=== PATIENT | male | born 1960 | race Caucasian/White ===

== ENCOUNTER → 2016-08-07 | Outpatient (CLI) | payer OTHER ==
--- NOTE | 2016-08-07 12:27 | P.PN ---
Progress Note - Text Patient returns for followup for chronic axial back pain. In 2014, patient underwent bilateral MBB with 1-2 days' relief >50% but RFA was not performed. Patient continues on MSContin 60 mg po q8h and [place] 10q6 medications for pain with OK but incomplete relief, and states that he is having severe pain preventing him from playing catch with his son or doing any outdoor activities. Patient denies adverse drug effects from medications. Today, pt denies new- onset weakness, bowel/bladder incontinence, or any other signs or symptoms of cauda equina syndrome. Patient states that his son has glaucoma and his sister has cancer and he is in a depressed mood today but denies any suicidal/ homicidal ideation. Review of systems is negative for chest pain, shortness of breath, changes in vision, changes in hearing, new onset weakness, abdominal pain, diarrhea, extreme fatigue, malaise, fever, skin changes, or bowel or bladder incontinence. Gen: WDWN, AAOx3, NAD HEENT: NCAT, EOMI, hearing grossly normal Pulm: resp unlabored Abd: soft, NT, ND Neck: supple, trachea midline ROM in flexion lumbar spine: reduced ROM in extension lumbar spine: reduced Lumbar paravertebral tenderness: + Facet loading: ++ bilateral SI joint tenderness: mild bilateral Straight leg raise: neg bilaterally Neuro: CN II-XII grossly intact Imaging: Reviewed in EMR Assessment: 1. lumbar spondylosis without myelopathy 2. lumbar DDD 3. chronic pain syndrome Plan: 1. Explanation: Opioid and psychological risk scores were reviewed. Diagnoses , prognoses, and multiple treatment options including but not limited to physical therapy, interventional therapies, adjuvant medical therapies, narcotic medication therapies, and surgery were discussed with the patient and all questions were answered to the patient's satisfaction. 2. Opioid agreement: Patient has previously signed narcotic agreement, and was orally counseled to not overuse, abuse, divert, or cell medications, and to take them as prescribed by only 1 healthcare provider. The patient was also counseled to store opioid medications in a safe and preferably locked location. Patient was also counseled against driving while using narcotic medications and also to not use alcohol or any illicit or recreational drugs. The patient verbalized understanding that lack of compliance with any of the above and likely result in failure to renew narcotic prescriptions, possible discharge from the clinic, and possible legal ramifications thereafter if indicated. 3. Counseling: The patient was counseled extensively on SMOKING CESSATION, BODY MASS INDEX, EXERCISE. Specifically, the patient was instructed regarding the importance of smoking cessation, obesity, and exercise in the context of both chronic pain and overall health. 4. Procedures: Patient to read about MBB/RFA; will discuss at next visit 5. Consultations: None 6. Investigations: UDS appropriate from last visit 7. Medications: MSContin 60 mg #90 + [place] 10/325 #120 x 2 months 8. Disposition: f/u for re-eval 2 months; patient having personal issues and wishes to wait on procedures for now PQRS measures: 1-Patient's medications are documented in the chart. 2-Tobacco use is positive, counseling given 3-Patient has not had a pneumococcal vaccine. 4-Advanced care planning discussed, patient not eligible. 5-Opioid contract signed with the patient. 6-Pain positive, follow-up visit or procedure scheduled 7-patient blood pressure measured and documented, and patient will follow up with the primary care due to hypertension. 8-Patient's weight was measured, and body mass index within the normal limits.. 9-Patient WAS NOT identified as an unhealthy alcohol user.
== END | disposition home or self-care (01) ==
CPT/HCPCS: 99211

== ENCOUNTER → 2016-10-28 | Outpatient (CLI) | payer OTHER ==
[2016-10-28 11:48] VITALS: BP 135/71; PULSE 74; RESP 16
--- NOTE | 2016-10-29 11:55 | P.CONS ---
History of Present Illness - Reason for Consult Consult date: 10/28/16 - History of Present Illness This is follow-up visit for this patient with a history of severe low back pain patient diagnosed with lumbar facet arthropathy and lumbar degenerative disc disease, he is here for medication management, and medication refill, he denies any side effect of the medication and he reported the current medication helping him to control his pain he denies any fever or night sweats and no change in the bowel movement or urination and no motor or sensory deficit Past Medical History Past Medical History: Hyperlipidemia, Hypertension, Memory Impairment, Musculoskeletal Disorder Additional Past Medical History / Comment(s): Closed head injury 2009, tips of fingers are numb History of Any Multi-Drug Resistant Organisms: None Reported Past Surgical History: Orthopedic Surgery Additional Past Surgical History / Comment(s): shoulder surgery Past Anesthesia/Blood Transfusion Reactions: No Reported Reaction Past Psychological History: No Psychological Hx Reported Smoking Status: Current every day smoker Past Alcohol Use History: None Reported Additional Past Alcohol Use History / Comment(s): started smoking approx 1979 Past Drug Use History: None Reported - Past Family History Mother Family Medical History: Cancer Medications and Allergies Home Medications Medication Instructions Recorded Confirmed Type Atorvastatin [Lipitor] 20 mg PO DAILY 10/13/14 08/07/16 History QUEtiapine FUMARATE [SEROquel XR] 150 mg PO HS 10/13/14 08/07/16 History Dextroamphetamine/Amphetamine 20 mg PO TID 05/27/16 08/07/16 History [Adderall] Diazepam [Valium] 5 mg PO DAILY PRN 05/27/16 08/07/16 History clonazePAM [KlonoPIN] 1 mg PO BID 05/27/16 08/07/16 History Allergies Allergy/AdvReac Type Severity Reaction Status Date / Time No Known Allergies Allergy Verified 10/28/16 11:39 Physical Exam Physical Examinations : 1-Constitutiona : Cooperative , not in acute distress . 2-HEENT : nech ; supple , no Lymphadenopathy , no Thyromegaly , normal thyroid size . eyes : no ptosis , no icterus, no photophobia . ENT : normal of hearing , normal oropharynx , no Thrush . 3- Respiratory : Chest clear to auscultations Bilaterally , no wheezing , no Rhonchi . 4- Cardiovascular : regular rate and rhythem , S1 , S2 , no S3 , no S4. 5- Gastrointestinal : abdomen soft no tenderness , bowel sounds positive all four quadrents , no organomegally . 6- Genitourinary : Defferred . 7- neurologic : Cranial nerve II to XII intact , no focal neurological deffecit . 8-psychatric : alert , oriented X 3 , appropriate affect , intact judgment and insight . 9-Lymphatic : no Lymphadenopathy . 10- musculoskeltal : exams of the cervical spine = normal motor stregnth in the upper extremity exams of the Lumber spine = normal moter stegnth lower extremities ,thigh and legs .5/5 deep tendon reflexes : normal Knee Jerk , normal ankle Jerk . positive lumber facet Loading Test strait leg raising test positive at 30 degree , RT ,LT , Fabere test positive RT and positive LT . Assessment and Plan Plan: Assessment and plan = - Chronic low back pain secondary to lumbar degenerative disc disease , lumbar spondylosis with facet arthropathy without myelopathy , Patient had no side effect of the medication, give medication refill and he will follow in the pain clinic in 2 months, MS Contin 60 mg every 8 hours dispense 90 with 1 refill and [place] 10/325 every 6 hours dispensed 120 with one refill Next visit we'll do urine drug screen, discussed with the patient the option of repeating diagnostic medial branch block, at this point he is not interested in any interventional pain management Time with Patient: Less than 30
== END ==
LOC: PNWHC3 11:24
PROVIDERS: ATTEND Specialist
DX: M51.36 Other intervertebral disc degeneration, lumbar region (principal); M47.816 Spondylosis without myelopathy or radiculopathy, lumbar region; M46.86 Other specified inflammatory spondylopathies, lumbar region; Z87.891 Personal history of nicotine dependence; Z79.899 Other long term (current) drug therapy; G89.29 Other chronic pain; Z87.820 Personal history of traumatic brain injury
CPT/HCPCS: 99211

== ENCOUNTER → 2016-12-23 | Outpatient (CLI) | payer OTHER ==
[2016-12-23 12:16] VITALS: BP 122/71; PULSE 66; RESP 18; TEMP 97.9
--- NOTE | 2016-12-24 11:40 | P.PN ---
Subjective Principal diagnosis: This is follow-up visit for this patient with a history of severe and chronic low back pain secondary to lumbar degenerative disc disease, lumbar facet arthropathy, Here for follow-up visit and medication refill , and 3 on 1-ms Contin 60 mg 3 times a day 2-[place] 10/325 every 6 hour Patient denies any side effects of the medication, denies excessive drowsiness or sleepiness, denies suicidal ideation, and reports that the current pain medication is helping To control the pain and improve activity of daily living . Patient denies any motor or sensory deficit, denies change in bowel movement or urination, patient denies any fever or night sweats and patient here for follow-up visit and medication refill Objective - Vital Signs Vital signs: Vital Signs Temp 97.9 F 12/23/16 12:13 Pulse 66 12/23/16 12:13 Resp 18 12/23/16 12:13 BP 122/71 12/23/16 12:13 Pulse Ox Intake & Output 12/23/16 12/24/16 12/24/16 18:59 06:59 18:59 Weight 74.843 kg - Exam Physical Examinations : 1-Constitutiona : Cooperative , not in acute distress . 2-HEENT : nech ; supple , no Lymphadenopathy , normal thyroid size . eyes : no ptosis , no icterus, no photophobia . ENT : normal of hearing , normal oropharynx , no Thrush . 3- Respiratory : Chest clear to auscultations Bilaterally , no wheezing , no Rhonchi . 4- Cardiovascular : regular rate and rhythem , S1 , S2 , no S3 , no S4. 5- Gastrointestinal : abdomen soft no tenderness , bowel sounds positive all four quadrents , no organomegally . 6- Genitourinary : Defferred . 7- neurologic : Cranial nerve II to XII intact , no focal neurological deffecit . 8-psychatric : alert , oriented X 3 , appropriate affect , intact judgment and insight . 9-Lymphatic : no Lymphadenopathy . 10- musculoskeltal : , Lumber spine = normal moter stegnth lower extremities ,thigh and legs .5/5 deep tendon reflexes : normal Knee Jerk , normal ankle Jerk . positive lumber facet Loading Test strait leg raising test positive at 30 degree , RT ,LT , Fabere test positive RT and positive LT . tenderness over the Sacroiliac joint on the Right , and Left side Assessment and Plan Plan: Assessment and plan = - Chronic low back pain secondary to lumbar degenerative disc disease , lumbar spondylosis with facet arthropathy without myelopathy , -chronic and current use of high-risk medication (Opioids). -Patient denies any side effect of the medication, and the current medication helped the patient to control the pain and improve activity of daily living, The patient was counseled about risk of opioid use, psychological risk associated with opioids discussed with the patient, body mass index and exercise. Patient signed the narcotic agreement , and was orally counseled not to overuse , abuse , divert, or sell medications ,and take them as prescribed only , and the patient was counseled against driving and while you are using the narcotic medication also not to use alcohol or any illicit drugs and the patient verbalized understanding that lack of compliance and could result in failure to renew narcotics prescriptions and possible discharge from the clinic - diagnoses, prognosis, and treatment options including but not limited to physical therapy, surgical interventions, interventional therapies and medication management including narcotics and adjuvant medication were discussed with the patient and all questions answered to the patient's satisfaction. -medication refile =1-MS Contin 60 mg 3 times a day, dispense 90 with 1 refill 2-norco 10/325 every 6 hours, dispense 120 with one refill . Follow -up in 2 months Urine drug screen was ordered today Time with Patient: Less than 30
== END ==
LOC: PNWHC3 11:56
PROVIDERS: ATTEND Specialist
DX: M51.36 Other intervertebral disc degeneration, lumbar region (principal); M47.816 Spondylosis without myelopathy or radiculopathy, lumbar region; M46.86 Other specified inflammatory spondylopathies, lumbar region; G89.29 Other chronic pain; Z79.891 Long term (current) use of opiate analgesic
CPT/HCPCS: 80307; 80356; 80364; 99211

== ENCOUNTER → 2017-02-17 | Outpatient (CLI) | payer OTHER ==
[2017-02-17 12:53] VITALS: BP 107/78; PULSE 72; RESP 18; TEMP 98.2
--- NOTE | 2017-02-17 13:26 | P.PN ---
Progress Note - Text This is a 57-year-old male with lower back pain due to lumbar disc degeneration and lumbar spondylosis without myelopathy. The patient's pain gets worse by sitting and when I saw him in the clinic he was pacing around because of his lower back pain due to the long drive . The patient has been on high-dose of opioids including 4 pills a day of [place] 10 mg and 180 mg a day of MS Contin. He denies any bowel or bladder dysfunction or any weakness in the lower extremities. His pain has been well-controlled with the above-mentioned medications. The patient understands that we have to go down on the dose of his opioids I will start doing that on his next visit by going down the [place] to 3 pills a day instead of 4. Today I will give him prescription of the above- mentioned medications and we'll see him 2 months from now. Currently the patient does not show any drug-seeking behavior he does not look oversedated. However he is going into a stressful situation because of a an ongoing separation from his significant other. We will see the patient 2 months from now.
== END | disposition home or self-care (01) ==
LOC: PNWHC3 12:17
PROVIDERS: ATTEND Anesthesiology
DX: M51.36 Other intervertebral disc degeneration, lumbar region (principal); M47.816 Spondylosis without myelopathy or radiculopathy, lumbar region
CPT/HCPCS: 99211

== ENCOUNTER → 2017-06-09 | Outpatient (CLI) | payer OTHER ==
[2017-06-09 14:37] VITALS: BP 140/79; PULSE 50; RESP 18
--- NOTE | 2017-06-09 14:55 | P.PN ---
Progress Note - Text Progress Note Date: 06/09/17 Patient returns for followup for chronic axial back pain. In 2014, patient underwent bilateral MBB with 1-2 days' relief >50% but RFA was not performed. Patient continues on MSContin 60 mg po q8h and [place] 10q6 medications for pain with good pain relief and improved functionality. Patient recently moved to [place] and is looking for a new pain physician in the area. Patient denies adverse drug effects from medications. Today, pt denies new-onset weakness, bowel/bladder incontinence, or any other signs or symptoms of cauda equina syndrome. Patient states that his son has glaucoma and his sister has cancer and he is in a depressed mood today but denies any suicidal/homicidal ideation. Review of systems is negative for chest pain, shortness of breath, changes in vision, changes in hearing, new onset weakness, abdominal pain, diarrhea, extreme fatigue, malaise, fever, skin changes, or bowel or bladder incontinence. Gen: WDWN, AAOx3, NAD HEENT: NCAT, EOMI, hearing grossly normal Pulm: resp unlabored Abd: soft, NT, ND Neck: supple, trachea midline ROM in flexion lumbar spine: reduced ROM in extension lumbar spine: reduced Lumbar paravertebral tenderness: + Facet loading: ++ bilateral SI joint tenderness: mild bilateral Straight leg raise: neg bilaterally Neuro: CN II-XII grossly intact Imaging: Reviewed in EMR Assessment: 1. lumbar spondylosis without myelopathy 2. lumbar DDD 3. chronic pain syndrome Plan: 1. Explanation: Opioid and psychological risk scores were reviewed. Diagnoses , prognoses, and multiple treatment options including but not limited to physical therapy, interventional therapies, adjuvant medical therapies, narcotic medication therapies, and surgery were discussed with the patient and all questions were answered to the patient's satisfaction. 2. Opioid agreement: Patient has previously signed narcotic agreement, and was orally counseled to not overuse, abuse, divert, or cell medications, and to take them as prescribed by only 1 healthcare provider. The patient was also counseled to store opioid medications in a safe and preferably locked location. Patient was also counseled against driving while using narcotic medications and also to not use alcohol or any illicit or recreational drugs. The patient verbalized understanding that lack of compliance with any of the above and likely result in failure to renew narcotic prescriptions, possible discharge from the clinic, and possible legal ramifications thereafter if indicated. 3. Counseling: The patient was counseled extensively on SMOKING CESSATION, BODY MASS INDEX, EXERCISE. Specifically, the patient was instructed regarding the importance of smoking cessation, obesity, and exercise in the context of both chronic pain and overall health. 4. Procedures: patient refuses 5. Consultations: None 6. Investigations: UDS appropriate from last visit 7. Medications: MSContin 60 mg #90 + [place] 10/325 #120 with one refill 8. Disposition: f/u as needed if patient cannot find new pain physician near [place]. Multiple addresses given for pain clinics near [place] and [place], [place] , including [facility] at [facility]. PQRS measures: 1-Patient's medications are documented in the chart. 2-Tobacco use is positive, counseling given 3-Patient has not had a pneumococcal vaccine. 4-Advanced care planning discussed, patient not eligible. 5-Opioid contract signed with the patient. 6-Pain positive, follow-up visit or procedure scheduled 7-patient blood pressure measured and documented, and patient will follow up with the primary care due to hypertension. 8-Patient's weight was measured, and body mass index within the normal limits.. 9-Patient WAS NOT identified as an unhealthy alcohol user.
== END | disposition home or self-care (01) ==
LOC: PNWHC3 14:26
PROVIDERS: ATTEND Anesthesiology
DX: M51.36 Other intervertebral disc degeneration, lumbar region (principal); M47.816 Spondylosis without myelopathy or radiculopathy, lumbar region; G89.4 Chronic pain syndrome
CPT/HCPCS: 99211

== ENCOUNTER → 2017-09-02 | Outpatient (CLI) | payer OTHER ==
[2017-09-02 12:59] VITALS: BP 125/85; PULSE 71; RESP 18
--- NOTE | 2017-09-03 12:08 | P.PN ---
Subjective Progress Note Date: 09/02/17 This is follow-up visit for this patient with a history of severe and chronic low back pain secondary to lumbar degenerative disc diseases , lumbar spondylosis with facet arthropathy, we have done an interventional pain management and he continued to have severe low back pain Patients currently on MS Contin 60 mg 3 times a day, [place] 10/325 every 6 hours Patient denies any side effects of the medication, denies excessive drowsiness or sleepiness, denies suicidal ideation, and reports that the current pain medication is NOT helping To control the pain and improve activity of daily living Patient denies any motor or sensory deficit , patient denies any fever or night sweats, denies any change in the bowel movements or urination Physical Examinations : 1-Constitutiona : Cooperative , not in acute distress . 2-HEENT : nech ; supple , no Lymphadenopathy , no Thyromegaly , normal thyroid size . eyes : no ptosis , no icterus, no photophobia . ENT : normal of hearing , normal oropharynx , no Thrush . 3- Respiratory : Chest clear to auscultations Bilaterally , no wheezing , no Rhonchi . 4- Cardiovascular : regular rate and rhythem , S1 , S2 , no S3 , no S4. 5- Gastrointestinal : abdomen soft no tenderness , bowel sounds positive all four quadrents , no organomegally . 6- Genitourinary : Defferred . 7- neurologic : Cranial nerve II to XII intact , no focal neurological deffecit . 8-psychatric : alert , oriented X 3 , appropriate affect , intact judgment and insight . 9-Lymphatic : no Lymphadenopathy . 10- musculoskeltal : exams of the Lumber spine = motor strength lower extremities ,thigh and legs .5/5 deep tendon reflexes : normal Knee Jerk , normal ankle Jerk . lumber facet Loading Test positive strait leg raising test positive at 30 degree , RT ,LT , Fabere test positive RT and positive LT . Range of motion: Range of motion in flexion of the lumbar spine 30 degrees Range of motion range of motion of extension of the lumbar spine 10 Assessment and plan = Chronic low back pain secondary to lumbar degenerative disc disease , lumbar spondylosis with facet arthropathy without myelopathy , chronic and current use of high-risk medication (Opioids). The patient was counseled about risk of opioid use, psychological risk associated with opioids and was orally counseled to not overuse , divert,or sell dictations to take medications as prescribed only , and to restore medication in safe location , and the patient counseled against driving while using narcotic medications, and also not to use alcohol or any illicit recreational drugs, the patient's verbalized understanding that the lack of compliance will result in failure to renew narcotic prescription and possible discharge from the clinic - diagnoses, prognosis, and treatment options including but not limited to physical therapy, surgical interventions, interventional therapies , and medication management including narcotics and adjuvant medication were discussed with the patient and all the questions answered Prescription refill for [place] 04/6025 every 6 hours dispense 120 with one refill, MS Contin 60 mg 3 times a day dispense 90 with 1 refill ,and we did urine drug screen Objective - Vital Signs Vital signs: Vital Signs Temp Pulse 71 09/02/17 12:51 Resp 18 09/02/17 12:51 BP 125/85 09/02/17 12:51 Pulse Ox 97 09/02/17 12:51 Intake & Output 09/02/17 09/03/17 09/03/17 18:59 06:59 18:59 Weight 74.843 kg
== END | disposition home or self-care (01) ==
LOC: PNWHC3 12:11
PROVIDERS: ATTEND Specialist
DX: M51.36 Other intervertebral disc degeneration, lumbar region (principal); M47.816 Spondylosis without myelopathy or radiculopathy, lumbar region; M46.86 Other specified inflammatory spondylopathies, lumbar region; Z79.899 Other long term (current) drug therapy; Z79.891 Long term (current) use of opiate analgesic; G89.29 Other chronic pain
CPT/HCPCS: 80307; G0480; G0463; 80356; 80364; 99211

== ENCOUNTER → 2017-10-28 | Outpatient (CLI) | payer OTHER ==
[2017-10-28 13:56] VITALS: BP 136/86; PULSE 71; RESP 18
--- NOTE | 2017-10-28 14:32 | P.PN ---
Progress Note - Text Progress Note Date: 10/28/17 Patient returns for followup for chronic axial back pain. In 2014, patient underwent bilateral MBB with 1-2 days' relief >50% but RFA was not performed. Patient continues on MSContin 60 mg po q8h and [place] 10q6 medications for pain with some pain relief and improved functionality. Patient recently moved to [place] and is looking for a new pain physician in the area. Patient denies adverse drug effects from medications. Today, pt denies new-onset weakness, bowel/bladder incontinence, or any other signs or symptoms of cauda equina syndrome. Patient states that his son has glaucoma and his sister has cancer and he is in a depressed mood today but denies any suicidal/homicidal ideation. Review of systems is negative for chest pain, shortness of breath, changes in vision, changes in hearing, new onset weakness, abdominal pain, diarrhea, extreme fatigue, malaise, fever, skin changes, or bowel or bladder incontinence. Gen: WDWN, AAOx3, NAD HEENT: NCAT, EOMI, hearing grossly normal Pulm: resp unlabored Abd: soft, NT, ND Neck: supple, trachea midline ROM in flexion lumbar spine: reduced ROM in extension lumbar spine: reduced Lumbar paravertebral tenderness: + Facet loading: ++ bilateral, R > L SI joint tenderness: mild bilateral Straight leg raise: neg Neuro: CN II-XII grossly intact Imaging: Reviewed in EMR Assessment: 1. lumbar spondylosis without myelopathy 2. lumbar DDD 3. chronic pain syndrome Plan: 1. Explanation: Opioid and psychological risk scores were reviewed. Diagnoses , prognoses, and multiple treatment options including but not limited to physical therapy, interventional therapies, adjuvant medical therapies, narcotic medication therapies, and surgery were discussed with the patient and all questions were answered to the patient's satisfaction. 2. Opioid agreement: Patient has previously signed narcotic agreement, and was orally counseled to not overuse, abuse, divert, or cell medications, and to take them as prescribed by only 1 healthcare provider. The patient was also counseled to store opioid medications in a safe and preferably locked location. Patient was also counseled against driving while using narcotic medications and also to not use alcohol or any illicit or recreational drugs. The patient verbalized understanding that lack of compliance with any of the above and likely result in failure to renew narcotic prescriptions, possible discharge from the clinic, and possible legal ramifications thereafter if indicated. 3. Counseling: The patient was counseled extensively on SMOKING CESSATION, BODY MASS INDEX, EXERCISE. Specifically, the patient was instructed regarding the importance of smoking cessation, obesity, and exercise in the context of both chronic pain and overall health. 4. Procedures: patient refuses 5. Consultations: None 6. Investigations: none for now 7. Medications: MSContin 60 mg reduced to #60 + [place] 10/325 #120 with one refill 8. Morphine equivalents: decreased today from 220 MME/day to 160 MME/day; patient also prescribed Adderall three times per day per [facility] 9. Disposition: patient to read further about lumbar MBB; patient had x 2 in 2014, one with good relief and one that worsened his pain. f/u for re-eval in 8 weeks. Plan for UDS next visit and anticipate decreasing opioids further at that time. PQRS measures: 1-Patient's medications are documented in the chart. 2-Tobacco use is positive, counseling given 3-Patient has not had a pneumococcal vaccine. 4-Advanced care planning discussed, patient not eligible. 5-Opioid contract signed with the patient. 6-Pain positive, follow-up visit or procedure scheduled 7-patient blood pressure measured and documented, and patient will follow up with the primary care due to hypertension. 8-Patient's weight was measured, and body mass index within the normal limits.. 9-Patient WAS NOT identified as an unhealthy alcohol user.
== END | disposition home or self-care (01) ==
LOC: PNWHC3 13:41
PROVIDERS: ATTEND Anesthesiology
DX: G89.4 Chronic pain syndrome (principal); M54.9 Dorsalgia, unspecified; M51.36 Other intervertebral disc degeneration, lumbar region; M47.816 Spondylosis without myelopathy or radiculopathy, lumbar region; E66.9 Obesity, unspecified; Z79.891 Long term (current) use of opiate analgesic; Z72.0 Tobacco use; Z68.23 Body mass index [BMI] 23.0-23.9, adult
CPT/HCPCS: 99211

== ENCOUNTER → 2017-12-23 | Outpatient (CLI) | payer OTHER ==
[2017-12-23 13:14] VITALS: BP 147/95; PULSE 59; RESP 16
--- NOTE | 2017-12-23 13:39 | P.PN ---
Progress Note - Text Progress Note Date: 12/23/17 Patient returns for followup for chronic axial back pain. In 2014, patient underwent bilateral MBB with 1-2 days' relief >50% but RFA was not performed at that time. Patient is unhappy that opioids were reduced at last visit and states that pain has worsened. Patient continues on MSContin 60 mg po q12h and [place] 10q6 medications for pain with some pain relief. Patient recently moved to [place] and is still looking for a new pain physician in the area. Patient denies adverse drug effects from medications. Today, pt denies new- onset weakness, bowel/bladder incontinence, or any other signs or symptoms of cauda equina syndrome. Patient states that his son has glaucoma and his sister has cancer and he is in a depressed mood today but denies any suicidal/ homicidal ideation. Review of systems is negative for chest pain, shortness of breath, changes in vision, changes in hearing, new onset weakness, abdominal pain, diarrhea, extreme fatigue, malaise, fever, skin changes, or bowel or bladder incontinence. Gen: WDWN, AAOx3, NAD HEENT: NCAT, EOMI, hearing grossly normal Pulm: resp unlabored Abd: soft, NT, ND Neck: supple, trachea midline ROM in flexion lumbar spine: reduced ROM in extension lumbar spine: reduced Lumbar paravertebral tenderness: + Facet loading: ++ bilateral, R > L SI joint tenderness: mild bilateral Straight leg raise: neg Imaging: Reviewed in EMR Assessment: 1. lumbar spondylosis without myelopathy 2. lumbar DDD 3. chronic pain syndrome Plan: 1. Explanation: Opioid and psychological risk scores were reviewed. Diagnoses , prognoses, and multiple treatment options including but not limited to physical therapy, interventional therapies, adjuvant medical therapies, narcotic medication therapies, and surgery were discussed with the patient and all questions were answered to the patient's satisfaction. 2. Opioid agreement: Patient has previously signed narcotic agreement, and was orally counseled to not overuse, abuse, divert, or cell medications, and to take them as prescribed by only 1 healthcare provider. The patient was also counseled to store opioid medications in a safe and preferably locked location. Patient was also counseled against driving while using narcotic medications and also to not use alcohol or any illicit or recreational drugs. The patient verbalized understanding that lack of compliance with any of the above and likely result in failure to renew narcotic prescriptions, possible discharge from the clinic, and possible legal ramifications thereafter if indicated. 3. Counseling: The patient was counseled extensively on SMOKING CESSATION, BODY MASS INDEX, EXERCISE. Specifically, the patient was instructed regarding the importance of smoking cessation, obesity, and exercise in the context of both chronic pain and overall health. 4. Procedures: will review MRI next visit 5. Consultations: None 6. Investigations: UDS today; MAPS queried and appropriate; MRI L-spine ordered 7. Medications: MSContin 60 mg q12 #60 + [place] 10/325 #120 with no refill 8. Morphine equivalents: 160 MME/day (unchanged); patient is also prescribed Adderall three times per day per MAPS 9. Disposition: f/u 4 weeks for re-eval with MRI L-spine. Patient refuses to decrease opioids any further or undergo any interventions without speaking to another pain physician at clinic. He did get relief for 1-2 days from LMBB x 2 performed in 2014. PQRS measures: 1-Patient's medications are documented in the chart. 2-Tobacco use is positive, counseling given 3-Patient has not had a pneumococcal vaccine. 4-Advanced care planning discussed, patient not eligible. 5-Opioid contract signed with the patient. 6-Pain positive, follow-up visit or procedure scheduled 7-patient blood pressure measured and documented, and patient will follow up with the primary care due to hypertension. 8-Patient's weight was measured, and body mass index within the normal limits.. 9-Patient WAS NOT identified as an unhealthy alcohol user.
== END ==
LOC: PNWHC3 12:49
PROVIDERS: ATTEND Anesthesiology
DX: G89.4 Chronic pain syndrome (principal); M51.36 Other intervertebral disc degeneration, lumbar region; M47.816 Spondylosis without myelopathy or radiculopathy, lumbar region; Z72.0 Tobacco use; Z79.891 Long term (current) use of opiate analgesic
CPT/HCPCS: 99211

== ENCOUNTER → 2018-01-18 | Outpatient (CLI) | payer OTHER ==
[2018-01-18 12:46] VITALS: BP 123/77; PULSE 63; RESP 16; TEMP 98.5
--- NOTE | 2018-01-18 13:27 | P.PAINPG ---
Subjective Progress Note Date: 01/18/18 This is follow-up visit for this patient with a history of severe and chronic low back pain secondary to lumbar degenerative disc disease, lumbar facet arthropathy, We have done an interventional pain procedure in 2014, The patient currently on MS Contin 60 mg twice a day, [place] 10/325 every 6 hours Patient denies any side effect of the medication , patient denies any excessive drowsiness or sleepiness, patient denies any suicidal ideation, Patient reported that the current medication is helping to control the pain and improve the activity of daily livings, Patient denies any motor or sensory deficit, denies any change in the bowel movement or urination, patient denies any fever or night sweats. Patient here today for follow-up visit and medication refill Objective - Vital Signs Vital signs: Vital Signs Temp 98.5 F 01/18/18 12:39 Pulse 63 01/18/18 12:39 Resp 16 01/18/18 12:39 BP 123/77 01/18/18 12:39 Pulse Ox 95 01/18/18 12:39 Intake & Output 01/17/18 01/18/18 01/18/18 18:59 06:59 18:59 Weight 77.111 kg - Exam Physical Examinations : 1-Constitutiona : Cooperative , not in acute distress . 2-HEENT : nech ; supple , no Lymphadenopathy , normal thyroid size . eyes : no ptosis , no icterus , no photophobia . ENT : normal of hearing , normal oropharynx , no Thrush . 3- Respiratory : Chest clear to auscultations Bilaterally , no wheezing , no Rhonchi . 4- Cardiovascular : regular rate and rhythem , S1 , S2 , no S3 , no S4. 5- Gastrointestinal : abdomen soft no tenderness , bowel sounds , no organomegally . 6- Genitourinary : Defferred . 7- neurologic : Cranial nerve II to XII intact , no focal neurological deffecit . 8-psychatric : alert , oriented X 3 , appropriate affect , intact judgment and insight . 9-Lymphatic : no Lymphadenopathy . 10- musculoskeltal : Lumber spine = normal moter stegnth lower extremities ,thigh and legs .5/5 deep tendon reflexes : normal Knee Jerk , normal ankle Jerk . lumber facet Loading Test positive strait leg raising test negative bilaterally Fabere test negative bilaterally mild tenderness over the Sacroiliac joint on the Right , and Left side MRI of the lumbar spine done at [facility] without contrast showed patient had L4 5 herniated disc disease and multilevel lumbar facet arthropathy and anterolisthesis Assessment and Plan Plan: Assessment and plan= chronic low back pain secondary to lumbar herniated disc disease , lumbar spondylosis with lumbar facet arthropathy . chronic and current use of high-risk medication (opioids) Patient denies any side effects of the current pain medication and the current treatment/medication helping the patient to do activity of daily living , Diagnoses, prognosis, treatment options, including but not limited to physical therapy, medication management, interventional therapies, and surgery, were discussed with the patient All the questions answered The narcotic consent was signed and patient agreed and understood the side effects and complications of opioid treatment. Patient signed the narcotic agreement, and was orally counseled, not to overuse, not to abuse, not to Divert , not tp sell pain medication, and to take it as prescribed only, Patient was counseled not to drive or operate heavy equipment while using narcotic medication, and advised not to use alcohol or any Illicit drugs while using the narcotis, the patient's verbalized understanding that lack of compliance with any of the above instructions, will likely to cause discharge from, the pain service, not to renew his narcotic prescriptions Medication managements= patient will be given prescription refills for MS Contin 60 mg twice a day dispense 60 with one refill, [place] 10/325 every 6 hours dispense 120 with one refill Today is reviewed today and it showed patient had positive cocaine but there was negative for amphetamines, patient currently getting prescription for Adderall from his psychiatrist, Next visit and consider doing a urine drug screen confirmation of hydrocodone /amphetamine. MAP reviewed and it was appropriate , Time with Patient: Less than 30 PQRS Measure Charge Sheet Measure #130: Documentation of Current Meds in Medical Chart: Patient's medications documented in chart Measure #226: Tobacco Use: Screen & Cessation Intervention: Pt screened for tobacco use AND intervention given Measure #111: Pneumonia Vaccination: Pneumococcal vaccine NOT administered or previously given Measure #47: Advance Care Plan: Advance care planning discussed & documented, plan or surrogate given Measure #412: Opioid Treatment Agreement: No documentation of signed opioid treatment agreement Measure #408: Opioid Therapy Follow-up Evaluation: Patient had NO f/u eval minimum every 3 months during opioid therapy Measure #317: Preventitive Care & Scrn High Bld Press & F/U: Normal blood pressure, f/u not required Measure #128: Body Mass Index (BMI) Screening & Follow-up: BMI documented within normal parameters Measure #131: Pain Assessment & Follow-up: Pain positive & plan documented, Follow-up scheduled Measure #431: Unhealthy Alcohol Use Preventative Care & Scrn: Patient not identified as an unhealthy alcohol user PQRS Narrative: Smoking Status Current every day smoker Narcotic Agreement Date Signed 05/27/16 Blood Pressure 123/77 Pain Intensity [Right Lower 6 Back] Scale Used Numeric (1 - 10) Hx Alcohol Use (MH) No Home Medications: Ambulatory Orders Atorvastatin [Lipitor] 20 mg PO DAILY 10/13/14 QUEtiapine FUMARATE [SEROquel XR] 150 mg PO HS 10/13/14 Dextroamphetamine/Amphetamine [Adderall] 20 mg PO TID 05/27/16 clonazePAM [KlonoPIN] 1 mg PO BID 05/27/16 HYDROcodone/APAP 10-325MG [[place] 10-325] 1 tab PO Q6H PRN 30 Days #120 tab 12/23 Morphine Sulfate ER [Ms Contin] 60 mg PO Q12H 30 Days #60 tab 12/23/17 HYDROcodone/APAP 10-325MG [[place] 10-325] 1 tab PO Q6HR PRN 30 Days #120 tab 09/06 Morphine Sulfate ER [Ms Contin] 60 mg PO Q12HR 30 Days #60 tab 01/18/18 Controlled Substance Measures - Controlled Substance Measures Is patient prescribed a controlled substance at discharge?: Yes When asked, does pt state using other controlled substances?: Yes If prescribed controlled substance>3 days was MAPS reviewed?: Yes If Rx opioid, was Start Talking consent form obtained?: Yes If opioid is for acute pain is fill amount 7 days or less?: No Was information provided regarding opioid addiction?: Yes
== END | disposition home or self-care (01) ==
LOC: PNWHC3 12:36
PROVIDERS: ATTEND Specialist
DX: G89.29 Other chronic pain (principal); M51.26 Other intervertebral disc displacement, lumbar region; M47.816 Spondylosis without myelopathy or radiculopathy, lumbar region; M46.96 Unspecified inflammatory spondylopathy, lumbar region; F17.200 Nicotine dependence, unspecified, uncomplicated; Z79.899 Other long term (current) drug therapy; Z79.891 Long term (current) use of opiate analgesic
CPT/HCPCS: 99211

== ENCOUNTER → 2018-03-15 | Outpatient (CLI) | payer OTHER ==
[2018-03-15 13:07] VITALS: BP 123/84; PULSE 72; RESP 16
--- NOTE | 2018-03-15 14:44 | P.PAINPG ---
Subjective Progress Note Date: 03/15/18 This is follow-up visit for this patient with a history of severe and chronic low back pain secondary to lumbar degenerative disc disease, lumbar facet arthropathy, We have done an interventional pain procedure in 2014, The patient currently on MS Contin 60 mg twice a day, [place] 10/325 every 6 hours Patient denies any side effect of the medication , patient denies any excessive drowsiness or sleepiness, patient denies any suicidal ideation, Patient reported that the current medication is helping to control the pain and improve the activity of daily livings, Patient denies any motor or sensory deficit, denies any change in the bowel movement or urination, patient denies any fever or night sweats. Patient here today for follow-up visit and medication refill Physical Examinations : 1-Constitutiona : Cooperative , not in acute distress . 2-HEENT : nech ; supple , no Lymphadenopathy , normal thyroid size . eyes : no ptosis , no icterus , no photophobia . ENT : normal of hearing , normal oropharynx , no Thrush . 3- Respiratory : Chest clear to auscultations Bilaterally , no wheezing , no Rhonchi . 4- Cardiovascular : regular rate and rhythem , S1 , S2 , no S3 , no S4. 5- Gastrointestinal : abdomen soft no tenderness , bowel sounds , no organomegally . 6- Genitourinary : Defferred . 7- neurologic : Cranial nerve II to XII intact , no focal neurological deffecit . 8-psychatric : alert , oriented X 3 , appropriate affect , intact judgment and insight . 9-Lymphatic : no Lymphadenopathy . 10- musculoskeltal : Lumber spine = normal moter stegnth lower extremities ,thigh and legs .5/5 deep tendon reflexes : normal Knee Jerk , normal ankle Jerk . lumber facet Loading Test positive strait leg raising test negative bilaterally Fabere test negative bilaterally mild tenderness over the Sacroiliac joint on the Right , and Left side MRI of the lumbar spine done at [facility] without contrast showed patient had L4 5 herniated disc disease and multilevel lumbar facet arthropathy and anterolisthesis Assessment and plan= chronic low back pain secondary to lumbar herniated disc disease , lumbar spondylosis with lumbar facet arthropathy . chronic and current use of high-risk medication (opioids) Patient denies any side effects of the current pain medication and the current treatment/medication helping the patient to do activity of daily living , Diagnoses, prognosis, treatment options, including but not limited to physical therapy, medication management, interventional therapies, and surgery, were discussed with the patient All the questions answered The narcotic consent was signed and patient agreed and understood the side effects and complications of opioid treatment. Patient signed the narcotic agreement, and was orally counseled, not to overuse, not to abuse, not to Divert , not tp sell pain medication, and to take it as prescribed only, Patient was counseled not to drive or operate heavy equipment while using narcotic medication, and advised not to use alcohol or any Illicit drugs while using the narcotis, the patient's verbalized understanding that lack of compliance with any of the above instructions, will likely to cause discharge from, the pain service, not to renew his narcotic prescriptions Medication managements= patient will be given prescription refills for MS Contin 60 mg twice a day dispense 60 with one refill, [place] 10/325 every 6 hours dispense 120 with one refill Today is reviewed today and it showed patient had positive cocaine but there was negative for amphetamines, patient currently getting prescription for Adderall from his psychiatrist, Next visit and consider doing a urine drug screen confirmation of hydrocodone /amphetamine. MAP reviewed and it was appropriate, UDS Reviewed , and it was appropriate , Objective - Vital Signs Vital signs: Vital Signs Temp Pulse 72 03/15/18 13:02 Resp 16 03/15/18 13:02 BP 123/84 03/15/18 13:02 Pulse Ox 96 03/15/18 13:02 Intake & Output 03/14/18 03/15/18 03/15/18 18:59 06:59 18:59 Weight 77.111 kg PQRS Measure Charge Sheet Measure #130: Documentation of Current Meds in Medical Chart: Patient's medications documented in chart Measure #226: Tobacco Use: Screen & Cessation Intervention: Pt screened for tobacco use AND intervention given Measure #111: Pneumonia Vaccination: Pneumococcal vaccine NOT administered or previously given Measure #47: Advance Care Plan: Advance care planning discussed & documented, pt chose/unable to give Measure #412: Opioid Treatment Agreement: Documented signed opioid trtmnt agreemnt min once during opioid trtmnt Measure #408: Opioid Therapy Follow-up Evaluation: Patient had f/u eval minimum every 3 months during opioid therapy Measure #317: Preventitive Care & Scrn High Bld Press & F/U: Normal blood pressure, f/u not required Measure #128: Body Mass Index (BMI) Screening & Follow-up: BMI documented within normal parameters Measure #131: Pain Assessment & Follow-up: Pain positive & plan documented, Follow-up scheduled Measure #431: Unhealthy Alcohol Use Preventative Care & Scrn: Patient not identified as an unhealthy alcohol user PQRS Narrative: Smoking Status Current every day smoker Do You Want the Pneumonia No Vaccine AT THIS TIME? Narcotic Agreement Date Signed 05/27/16 Blood Pressure 123/84 Pain Intensity [Lower Back] 4 Scale Used Numeric (1 - 10) Hx Alcohol Use (MH) No Home Medications: Ambulatory Orders Atorvastatin [Lipitor] 20 mg PO DAILY 10/13/14 QUEtiapine FUMARATE [SEROquel XR] 150 mg PO HS 10/13/14 Dextroamphetamine/Amphetamine [Adderall] 20 mg PO TID 05/27/16 clonazePAM [KlonoPIN] 1 mg PO BID 05/27/16 HYDROcodone/APAP 10-325MG [[place] 10-325] 1 tab PO Q6H PRN 30 Days #120 tab 03/15 HYDROcodone/APAP 10-325MG [[place] 10-325] 1 tab PO Q6HR PRN 30 Days #120 tab Morphine Sulfate ER [Ms Contin] 60 mg PO Q12H 30 Days #60 tab 03/15/18 Morphine Sulfate ER [Ms Contin] 60 mg PO Q12HR 30 Days #60 tab 03/15/18 Controlled Substance Measures - Controlled Substance Measures Is patient prescribed a controlled substance at discharge?: Yes When asked, does pt state using other controlled substances?: No If prescribed controlled substance>3 days was MAPS reviewed?: Yes If Rx opioid, was Start Talking consent form obtained?: Yes If opioid is for acute pain is fill amount 7 days or less?: No Was information provided regarding opioid addiction?: Yes
== END | disposition home or self-care (01) ==
LOC: PNWHC3 12:29
PROVIDERS: ATTEND Specialist
DX: G89.29 Other chronic pain (principal); M51.26 Other intervertebral disc displacement, lumbar region; M47.816 Spondylosis without myelopathy or radiculopathy, lumbar region; M46.96 Unspecified inflammatory spondylopathy, lumbar region; F17.200 Nicotine dependence, unspecified, uncomplicated; Z79.891 Long term (current) use of opiate analgesic; Z79.899 Other long term (current) drug therapy
CPT/HCPCS: 99211

== ENCOUNTER → 2018-05-10 | Outpatient (CLI) | payer OTHER ==
[2018-05-10 13:52] VITALS: BP 130/76; PULSE 63; RESP 16
--- NOTE | 2018-05-11 09:39 | P.PAINPG ---
Subjective Progress Note Date: 05/10/18 This is follow-up visit for this patient with a history of severe and chronic low back pain secondary to lumbar degenerative disc disease, lumbar facet arthropathy, The patient currently on MS Contin 60 mg twice a day, [place] 10/325 every 6 hours Patient reported that he had minimal benefit from interventional pain procedures Patient denies any side effect of the medication , patient denies any excessive drowsiness or sleepiness, patient denies any suicidal ideation, Patient reported that the current medication is helping to control the pain and improve the activity of daily livings, Patient denies any motor or sensory deficit, denies any change in the bowel movement or urination, patient denies any fever or night sweats. Patient here today for follow-up visit and medication refill Physical Examinations : 1-Constitutiona : Cooperative , not in acute distress . 2-HEENT : nech ; supple , no Lymphadenopathy , normal thyroid size . eyes : no ptosis , no icterus , no photophobia . ENT : normal of hearing , normal oropharynx , no Thrush . 3- Respiratory : Chest clear to auscultations Bilaterally , no wheezing , no Rhonchi . 4- Cardiovascular : regular rate and rhythem , S1 , S2 , no S3 , no S4. 5- Gastrointestinal : abdomen soft no tenderness , bowel sounds , no organomegally . 6- Genitourinary : Defferred . 7- neurologic : Cranial nerve II to XII intact , no focal neurological deffecit . 8-psychatric : alert , oriented X 3 , appropriate affect , intact judgment and insight . 9-Lymphatic : no Lymphadenopathy . 10- musculoskeltal : Lumber spine = normal moter stegnth lower extremities ,thigh and legs .5/5 deep tendon reflexes : normal Knee Jerk , normal ankle Jerk . lumber facet Loading Test positive strait leg raising test negative bilaterally Fabere test negative bilaterally mild tenderness over the Sacroiliac joint on the Right , and Left side MRI of the lumbar spine done at [facility] without contrast showed patient had L4 5 herniated disc disease and multilevel lumbar facet arthropathy and anterolisthesis Assessment and plan= chronic low back pain secondary to lumbar herniated disc disease , lumbar spondylosis with lumbar facet arthropathy . chronic and current use of high-risk medication (opioids) Patient denies any side effects of the current pain medication and the current treatment/medication helping the patient to do activity of daily living , Diagnoses, prognosis, treatment options, including but not limited to physical therapy, medication management, interventional therapies, and surgery, were discussed with the patient All the questions answered The narcotic consent was signed and patient agreed and understood the side effects and complications of opioid treatment. Patient signed the narcotic agreement, and was orally counseled, not to overuse, not to abuse, not to Divert , not tp sell pain medication, and to take it as prescribed only, Patient was counseled not to drive or operate heavy equipment while using narcotic medication, and advised not to use alcohol or any Illicit drugs while using the narcotis, understanding that lack of compliance with any of the above instructions, will likely to cause discharge from, the pain service, not to renew his narcotic prescriptions Medication managements= patient will be given prescription refills for MS Contin 60 mg twice a day dispense 60 with one refill, [place] 10/325 every 6 hours dispense 120 with one refill Today is reviewed today and it showed patient had positive cocaine but there was negative for amphetamines, patient currently getting prescription for Adderall from his psychiatrist, Next visit and consider doing a urine drug screen confirmation of hydrocodone /amphetamine. MAP reviewed and it was appropriate, UDS Reviewed , and it was appropriate Patient will follow up with the pain clinic in 2 months , Objective - Vital Signs Vital signs: Vital Signs Temp Pulse 63 05/10/18 13:44 Resp 16 05/10/18 13:44 BP 130/76 05/10/18 13:44 Pulse Ox 99 05/10/18 13:44 Intake & Output 05/10/18 05/11/18 05/11/18 18:59 06:59 18:59 Weight 74.843 kg PQRS Measure Charge Sheet Measure #130: Documentation of Current Meds in Medical Chart: Patient's medications documented in chart Measure #226: Tobacco Use: Screen & Cessation Intervention: Pt screened for tobacco use AND intervention given Measure #111: Pneumonia Vaccination: Pneumococcal vaccine NOT administered or previously given Measure #47: Advance Care Plan: Advance care planning discussed & documented, pt chose/unable to give Measure #412: Opioid Treatment Agreement: Documented signed opioid trtmnt agreemnt min once during opioid trtmnt Measure #408: Opioid Therapy Follow-up Evaluation: Patient had f/u eval minimum every 3 months during opioid therapy Measure #317: Preventitive Care & Scrn High Bld Press & F/U: Normal blood pressure, f/u not required Measure #128: Body Mass Index (BMI) Screening & Follow-up: BMI documented within normal parameters Measure #131: Pain Assessment & Follow-up: Pain positive & plan documented, Follow-up scheduled Measure #431: Unhealthy Alcohol Use Preventative Care & Scrn: Patient not identified as an unhealthy alcohol user PQRS Narrative: Smoking Status Current every day smoker Do You Want the Pneumonia No Vaccine AT THIS TIME? Narcotic Agreement Date Signed 12/23/17 Blood Pressure 130/76 Pain Intensity [Bilateral 4 Lower Back] Scale Used Numeric (1 - 10) Hx Alcohol Use (MH) No Home Medications: Ambulatory Orders Atorvastatin [Lipitor] 20 mg PO DAILY 10/13/14 QUEtiapine FUMARATE [SEROquel XR] 150 mg PO HS 10/13/14 Dextroamphetamine/Amphetamine [Adderall] 20 mg PO TID 05/27/16 clonazePAM [KlonoPIN] 1 mg PO BID 05/27/16 HYDROcodone/APAP 10-325MG [[place] 10-325] 1 tab PO Q6HR PRN 30 Days #120 tab HYDROcodone/APAP 10-325MG [[place] 10-325] 1 tab PO Q6HR PRN 30 Days #120 tab Morphine Sulfate ER [Ms Contin] 60 mg PO Q12H 30 Days #60 tab 05/10/18 Morphine Sulfate ER [Ms Contin] 60 mg PO Q12HR 30 Days #60 tab 05/10/18 Controlled Substance Measures - Controlled Substance Measures Is patient prescribed a controlled substance at discharge?: Yes When asked, does pt state using other controlled substances?: No If prescribed controlled substance>3 days was MAPS reviewed?: Yes If Rx opioid, was Start Talking consent form obtained?: Yes If opioid is for acute pain is fill amount 7 days or less?: No Was information provided regarding opioid addiction?: Yes
== END | disposition home or self-care (01) ==
LOC: PNWHC3 12:47
PROVIDERS: ATTEND Specialist
DX: G89.29 Other chronic pain (principal); M51.26 Other intervertebral disc displacement, lumbar region; M51.36 Other intervertebral disc degeneration, lumbar region; M47.816 Spondylosis without myelopathy or radiculopathy, lumbar region; M46.86 Other specified inflammatory spondylopathies, lumbar region; F17.200 Nicotine dependence, unspecified, uncomplicated; F11.90 Opioid use, unspecified, uncomplicated; Z98.890 Other specified postprocedural states; Z71.6 Tobacco abuse counseling
CPT/HCPCS: 99211

== ENCOUNTER → 2018-07-05 | Outpatient (CLI) | payer OTHER ==
[2018-07-05 14:02] VITALS: BP 114/71; PULSE 86; RESP 16
--- NOTE | 2018-07-05 15:54 | P.PN ---
Subjective Progress Note Date: 07/05/18 This is follow-up visit for this patient with a history of severe and chronic low back pain secondary to lumbar degenerative disc disease, lumbar facet arthropathy, The patient currently on MS Contin 60 mg twice a day, [place] 10/325 every 6 hours Patient reported that he had minimal benefit from interventional pain procedures Patient denies any side effect of the medication , patient denies any excessive drowsiness or sleepiness, patient denies any suicidal ideation, Patient reported that the current medication is helping to control the pain and improve the activity of daily livings, Patient denies any motor or sensory deficit, denies any change in the bowel movement or urination, patient denies any fever or night sweats. Patient here today for follow-up visit and medication refill Physical Examinations : 1-Constitutiona : Cooperative , not in acute distress . 2-HEENT : nech ; supple , no Lymphadenopathy , normal thyroid size . eyes : no ptosis , no icterus , no photophobia . ENT : normal of hearing , normal oropharynx , no Thrush . 3- Respiratory : Chest clear to auscultations Bilaterally , no wheezing , no Rhonchi . 4- Cardiovascular : regular rate and rhythem , S1 , S2 , no S3 , no S4. 5- Gastrointestinal : abdomen soft no tenderness , bowel sounds , no organomegally . 6- Genitourinary : Defferred . 7- neurologic : Cranial nerve II to XII intact , no focal neurological deffecit . 8-psychatric : alert , oriented X 3 , appropriate affect , intact judgment and insight . 9-Lymphatic : no Lymphadenopathy . 10- musculoskeltal : Lumber spine = normal moter stegnth lower extremities ,thigh and legs .5/5 deep tendon reflexes : normal Knee Jerk , normal ankle Jerk . lumber facet Loading Test positive strait leg raising test negative bilaterally Fabere test negative bilaterally mild tenderness over the Sacroiliac joint on the Right , and Left side MRI of the lumbar spine done at [facility] without contrast showed patient had L4 5 herniated disc disease and multilevel lumbar facet arthropathy and anterolisthesis Assessment and plan= chronic low back pain secondary to lumbar herniated disc disease , lumbar spondylosis with lumbar facet arthropathy . chronic and current use of high-risk medication (opioids) Patient denies any side effects of the current pain medication and the current treatment/medication helping the patient to do activity of daily living , Diagnoses, prognosis, treatment options, including but not limited to physical therapy, medication management, interventional therapies, and surgery, were discussed with the patient All the questions answered The narcotic consent was signed and patient agreed and understood the side effects and complications of opioid treatment. Patient signed the narcotic agreement, and was orally counseled, not to overuse, not to abuse, not to Divert , not tp sell pain medication, and to take it as prescribed only, Patient was counseled not to drive or operate heavy equipment while using narcotic medication, and advised not to use alcohol or any Illicit drugs while using the narcotis, understanding that lack of compliance with any of the above instructions, will likely to cause discharge from, the pain service, not to renew his narcotic prescriptions Medication managements= patient will be given prescription refills for MS Contin 60 mg twice a day dispense 60 with one refill, [place] 10/325 every 6 hours dispense 120 with one refill Today is reviewed today and it showed patient had positive cocaine but there was negative for amphetamines, patient currently getting prescription for Adderall from his psychiatrist, Today we did a blood drug screen to evaluate the compliance with the medication. MAP reviewed and it was appropriate, Patient will follow up with the pain clinic in 2 months , PQRS Measure Charge Sheet Measure #130: Documentation of Current Meds in Medical Chart: Patient's medications documented in chart Measure #226: Tobacco Use: Screen & Cessation Intervention: Pt screened for tobacco use AND intervention given Measure #111: Pneumonia Vaccination: Pneumococcal vaccine NOT administered or previously given Measure #47: Advance Care Plan: Advance care planning discussed & documented, pt chose/unable to give Measure #412: Opioid Treatment Agreement: Documented signed opioid trtmnt agreemnt min once during opioid trtmnt Measure #408: Opioid Therapy Follow-up Evaluation: Patient had f/u eval minimum every 3 months during opioid therapy Measure #317: Preventitive Care & Scrn High Bld Press & F/U: Normal blood pressure, f/u not required Measure #128: Body Mass Index (BMI) Screening & Follow-up: BMI documented within normal parameters Measure #131: Pain Assessment & Follow-up: Pain positive & plan documented, Follow-up scheduled Measure #431: Unhealthy Alcohol Use Preventative Care & Scrn: Patient not identified as an unhealthy alcohol user PQRS Narrative: - Controlled Substance Measures Is patient prescribed a controlled substance at discharge?: Yes When asked, does pt state using other controlled substances?: No If prescribed controlled substance>3 days was MAPS reviewed?: Yes If Rx opioid, was Start Talking consent form obtained?: Yes If opioid is for acute pain is fill amount 7 days or less?: No Was information provided regarding opioid addiction?: Yes Objective - Vital Signs Vital signs: Vital Signs Temp Pulse 86 07/05/18 13:54 Resp 16 07/05/18 13:54 BP 114/71 07/05/18 13:54 Pulse Ox Intake & Output 07/04/18 07/05/18 07/05/18 18:59 06:59 18:59 Weight 75.75 kg
== END ==
LOC: PNWHC3 12:40
PROVIDERS: ATTEND Specialist
DX: G89.29 Other chronic pain (principal); M51.26 Other intervertebral disc displacement, lumbar region; M47.816 Spondylosis without myelopathy or radiculopathy, lumbar region; M46.96 Unspecified inflammatory spondylopathy, lumbar region; Z79.891 Long term (current) use of opiate analgesic; Z79.899 Other long term (current) drug therapy
CPT/HCPCS: 99211

== ENCOUNTER → 2018-08-30 | Outpatient (CLI) | payer OTHER ==
[2018-08-30 14:37] VITALS: BP 117/83; PULSE 74; RESP 16; TEMP 98.2
--- NOTE | 2018-08-30 17:14 | P.PN ---
Progress Note - Text Progress Note Date: 08/30/18 Patient returns for followup for chronic axial back pain. VAS today is 3-4 out of 10 in severity. Describes as a throbbing aching pain in his buttock across his low back. Medication therapy decreases pain by greater than 50%. He reports improved ADLs with medication usage, and was unhappy that opioids were reduced last year. Patient continues on MSContin 60 mg po q12h and [place] 10q6 medications for pain with some pain relief. Patient denies adverse drug effects from medications. Today, pt denies new-onset weakness, bowel/bladder incontinence, or any other signs or symptoms of cauda equina syndrome. Review of systems is negative for chest pain, shortness of breath, changes in vision, changes in hearing, new onset weakness, abdominal pain, diarrhea, extreme fatigue, malaise, fever, skin changes, or bowel or bladder incontinence. Gen: WDWN, AAOx3, NAD HEENT: NCAT, EOMI, hearing grossly normal Pulm: resp unlabored Abd: soft, NT, ND Neck: supple, trachea midline ROM in flexion lumbar spine: reduced ROM in extension lumbar spine: reduced Lumbar paravertebral tenderness: + Facet loading: ++ bilateral, R > L SI joint tenderness: mild bilateral Straight leg raise: neg Imaging: Reviewed in EMR Assessment: 1. lumbar spondylosis without myelopathy 2. lumbar DDD 3. chronic pain syndrome 4. Lumbar retrolisthesis at L5-S1 with mild to moderate spinal stenosis 5. Opioid dependence Plan: 1. Explanation: Opioid and psychological risk scores were reviewed. Diagnoses , prognoses, and multiple treatment options including but not limited to physical therapy, interventional therapies, adjuvant medical therapies, narcotic medication therapies, and surgery were discussed with the patient and all questions were answered to the patient's satisfaction. 2. Opioid agreement: Patient has previously signed narcotic agreement, and was orally counseled to not overuse, abuse, divert, or cell medications, and to take them as prescribed by only 1 healthcare provider. The patient was also counseled to store opioid medications in a safe and preferably locked location. Patient was also counseled against driving while using narcotic medications and also to not use alcohol or any illicit or recreational drugs. The patient verbalized understanding that lack of compliance with any of the above and likely result in failure to renew narcotic prescriptions, possible discharge from the clinic, and possible legal ramifications thereafter if indicated. 3. Counseling: The patient was counseled extensively on SMOKING CESSATION Specifically, the patient was instructed regarding the importance of smoking cessation, and exercise in the context of both chronic pain and overall health. 4. Procedures: 5. Consultations: None 6. Investigations: UDS today my he had given a blood sample on his last visit in June but the lab had a processing year. MAPS queried and appropriate. 7. Medications: MSContin 60 mg q12 #60 + [place] 10/325 #120 with no refill 8. Morphine equivalents: 160 MME/day 9. Disposition: I reviewed the patient's MRI with him discussed other therapeutic options other than just opiates. I did inform him that I want to decrease his short-acting medication today the patient became extremely argumentative and stated "DrEboni's that don't see him or overuse trying to decrease his medication" he wants to speak with Dr. Rudd before any decreases. He states he takes his medication as prescribed, does not divert his medication, and that the medication allows him to do day-to-day activities and without it he has very limited activity level. Patient could benefit from a series of epidural steroid injections after reviewing his MRI and discussing his diagnosis. I did inform him that if he happens to have a clinic today or I' m present, I will be decreasing his medications. PQRS measures: 1-Patient's medications are documented in the chart. 2-Tobacco use is positive, counseling given 3-Patient has not had a pneumococcal vaccine. 4-Advanced care planning discussed, patient not eligible. 5-Opioid contract signed with the patient. 6-Pain positive, follow-up visit or procedure scheduled 7-patient blood pressure measured and documented, and patient will follow up with the primary care due to hypertension. 8-Patient's weight was measured, and body mass index within the normal limits.. 9-Patient WAS NOT identified as an unhealthy alcohol user.
== END | disposition home or self-care (01) ==
LOC: PNWHC3 13:28
PROVIDERS: ATTEND Anesthesiology
DX: M54.5 Low back pain (principal); G89.4 Chronic pain syndrome; M48.061 Spinal stenosis, lumbar region without neurogenic claudication; M43.17 Spondylolisthesis, lumbosacral region; M51.36 Other intervertebral disc degeneration, lumbar region; M47.816 Spondylosis without myelopathy or radiculopathy, lumbar region; F11.20 Opioid dependence, uncomplicated; Z79.899 Other long term (current) drug therapy
CPT/HCPCS: 80307; G0482; G0463; 99211

== ENCOUNTER → 2018-10-25 | Outpatient (CLI) | payer OTHER ==
[2018-10-25 13:07] VITALS: BP 123/82; PULSE 70; RESP 16
--- NOTE | 2018-10-26 21:47 | P.PN ---
Subjective Progress Note Date: 10/25/18 This is follow-up visit for this patient with a history of severe and chronic low back pain secondary to lumbar degenerative disc disease, lumbar facet arthropathy, The patient currently on MS Contin 60 mg twice a day, [place] 10/325 every 6 hours Patient denies any side effect of the medication , patient denies any excessive drowsiness or sleepiness, patient denies any suicidal ideation, Patient reported that the current medication is helping to control the pain and improve the activity of daily livings, Patient denies any motor or sensory deficit, denies any change in the bowel movement or urination, patient denies any fever or night sweats. Patient here today for follow-up visit and medication refill, she reported increased intensity of the pain over the last few weeks, any activity aggravates his pain, his very frustrated with the pain, he denies any suicidal ideation . Physical Examinations : 1-Constitutiona : Cooperative , not in acute distress . 2-HEENT : nech ; supple , no Lymphadenopathy , normal thyroid size . eyes : no ptosis , no icterus, no photophobia . ENT : normal of hearing , normal oropharynx , no Thrush . 3- Respiratory : Chest clear to auscultations Bilaterally , no wheezing , no Rhonchi . 4- Cardiovascular : regular rate and rhythem , S1 , S2 , no S3 , no S4. 5- Gastrointestinal : abdomen soft no tenderness , bowel sounds , no organomegally . 6- Genitourinary : Defferred . 7- neurologic : Cranial nerve II to XII intact , no focal neurological deffecit . 8-psychatric : alert , oriented X 3 , appropriate affect , intact judgment and insight . 9-Lymphatic : no Lymphadenopathy . 10- musculoskeltal : Lumber spine = normal moter stegnth lower extremities ,thigh and legs .5/5 deep tendon reflexes : normal Knee Jerk , normal ankle Jerk . lumber facet Loading Test positive strait leg raising test negative bilaterally Fabere test negative bilaterally mild tenderness over the Sacroiliac joint on the Right , and Left side MRI of the lumbar spine done at [facility] without contrast showed patient had L4 5 herniated disc disease and multilevel lumbar facet arthropathy and anterolisthesis Assessment and plan= chronic low back pain secondary to lumbar herniated disc disease , lumbar spondylosis with lumbar facet arthropathy . chronic and current use of high-risk medication (opioids) Patient denies any side effects of the current pain medication and the current treatment/medication helping the patient to do activity of daily living , Diagnoses, prognosis, treatment options, including but not limited to physical therapy, medication management, interventional therapies, and surgery, were discussed with the patient All the questions answered The narcotic consent was signed and patient agreed and understood the side effects and complications of opioid treatment. Patient signed the narcotic agreement, and was orally counseled, not to overuse, not to abuse, not to Divert , not tp sell pain medication, and to take it as prescribed only, Patient was counseled not to drive or operate heavy equipment while using narcotic medication, and advised not to use alcohol or any Illicit drugs while using the narcotis, understanding that lack of compliance with any of the above instructions, will likely to cause discharge from, the pain service, not to renew his narcotic prescriptions Medication managements= patient will be given prescription refills for MS Contin 60 mg twice a day dispense 60 with one refill, [place] 10/325 every 6 hours dispense 120 with one refill Today is reviewed today and it showed patient had positive cocaine but there was negative for amphetamines, patient currently getting prescription for Adderall from his psychiatrist, Next visit and consider doing a urine drug screen confirmation of hydrocodone/amphetamine. MAP reviewed and it was appropriate, UDS Reviewed , and it was appropriate Patient will follow up with the pain clinic in 2 months Patient will be good candidate to have diagnostic medial branch blocks and possible radiofrequency, patient is very hesitant to have any interventional pain interventions , PQRS Measure Charge Sheet Measure #130: Documentation of Current Meds in Medical Chart: Patient's medications documented in chart Measure #226: Tobacco Use: Screen & Cessation Intervention: Pt screened for tobacco use AND intervention given Measure #111: Pneumonia Vaccination: Pneumococcal vaccine NOT administered or previously given Measure #47: Advance Care Plan: Advance care planning discussed & documented, pt chose/unable to give Measure #412: Opioid Treatment Agreement: Documented signed opioid trtmnt agreemnt min once during opioid trtmnt Measure #408: Opioid Therapy Follow-up Evaluation: Patient had f/u eval minimum every 3 months during opioid therapy Measure #317: Preventitive Care & Scrn High Bld Press & F/U: Normal blood pressure, f/u not required Measure #128: Body Mass Index (BMI) Screening & Follow-up: BMI documented within normal parameters Measure #131: Pain Assessment & Follow-up: Pain positive & plan documented, Follow-up scheduled Measure #431: Unhealthy Alcohol Use Preventative Care & Scrn: Patient not identified as an unhealthy alcohol user PQRS Narrative: - Controlled Substance Measures Is patient prescribed a controlled substance at discharge?: Yes When asked, does pt state using other controlled substances?: No If prescribed controlled substance>3 days was MAPS reviewed?: Yes If Rx opioid, was Start Talking consent form obtained?: Yes If opioid is for acute pain is fill amount 7 days or less?: No Was information provided regarding opioid addiction?: Yes Objective - Vital Signs Vital signs: Vital Signs Temp Pulse 70 10/25/18 13:00 Resp 16 10/25/18 13:00 BP 123/82 10/25/18 13:00 Pulse Ox
== END ==
LOC: PNWHC3 12:10
PROVIDERS: ATTEND Specialist
DX: G89.29 Other chronic pain (principal); M51.26 Other intervertebral disc displacement, lumbar region; M47.816 Spondylosis without myelopathy or radiculopathy, lumbar region; M46.96 Unspecified inflammatory spondylopathy, lumbar region; Z79.891 Long term (current) use of opiate analgesic; Z79.899 Other long term (current) drug therapy
CPT/HCPCS: 99211

== ENCOUNTER → 2018-12-21 | Outpatient (CLI) | payer OTHER ==
[2018-12-21 11:35] VITALS: BP 118/81; PULSE 76; RESP 18
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
== END ==
LOC: PNWHC3 11:23
PROVIDERS: ATTEND Hospitalist
DX: M51.36 Other intervertebral disc degeneration, lumbar region (principal); M47.816 Spondylosis without myelopathy or radiculopathy, lumbar region; Z79.891 Long term (current) use of opiate analgesic; Z71.6 Tobacco abuse counseling
CPT/HCPCS: 99211

== ENCOUNTER → 2019-02-22 | Outpatient (CLI) | payer OTHER ==
[2019-02-22 13:13] VITALS: BP 129/79; PULSE 77; RESP 16
--- NOTE | 2019-02-22 15:40 | P.PAINPG ---
Subjective Mr. Shabbir Loomis is a 59-year-old male who returns to clinic with chronic low back pain. At the last visit Extensive discussion was took place where we were to wean his opiate dosage 90 oral morphine equivalents over time. Unfortunately the prescription written at that time did not have necessary information so his hydrocodone acetaminophen was not decreased. We requested refill over the phone and he was given to his normal pain medication regimen. Thus today we will wean him based upon the plan from the last clinic visit. He reports significant psychosocial stressors including his 16-year-old son having surgery. It does appear that he is using his opiates for coping with psychosocial stressors. Objective - Vital Signs Vital signs: Vital Signs Temp Pulse 77 02/22/19 13:10 Resp 16 02/22/19 13:10 BP 129/79 02/22/19 13:10 Pulse Ox 98 02/22/19 13:10 Intake & Output 02/21/19 02/22/19 02/22/19 18:59 06:59 18:59 Weight 77.111 kg - Exam Gen: WDWN, AAOx3, NAD. Become upset after discussing weaning opiate HEENT: NCAT, EOMI, hearing grossly normal Pulm: resp unlabored Abd: soft, NT, ND Neck: supple, trachea midline ROM in flexion lumbar spine: Slightly Decreased ROM in extension lumbar spine: Slightly decreased Lumbar paravertebral tenderness: Tender Facet loading: Cause some pain Neuro: muscle strength lower extremities normal Assessment and Plan Assessment: Assessment and plan: 1. Lumbar spondolysis without radiculopathy 2. DDD 3. Chronic opiate dependence 1. Chronic and current use of high-risk medication (opioids) can cause serious complications to overall health. At his last visit there was an extensive discussion talking by reducing his opiate slowly by about 10 oral morphine equivalence a revisit. Today he is upset at continuing his opiate wean. Unfortunately he is now weaned since his last visit has another prescription was called in for the same dosage. Thus today we will continue him on his MS Contin 60 twice a day he was previously on hydrocodone/acetaminophen 10/325 4 times per day. Today he will be decreased to hydrocodone acetaminophen 10/325 3 times per day. He was not happy with this plan but I agree to continue weaning him to less than 90 oral morphine equivalence 1-Urine Drug Screen and reviewed 2-procedures have not benefited him 3-he was offered mental health services which he was not interested in 4-he will follow-up in 8 weeks where I agree with continued weaning of his opiates. He is not happy with this but does appear to be using opiates for psychological coping. PQRS Measure Charge Sheet Measure #130: Documentation of Current Meds in Medical Chart: Patient's medications documented in chart Measure #226: Tobacco Use: Screen & Cessation Intervention: Pt screened for tobacco use AND intervention given Measure #111: Pneumonia Vaccination: Pneumococcal vaccine NOT administered or previously given Measure #47: Advance Care Plan: Advance care planning discussed & documented, pt chose/unable to give Measure #412: Opioid Treatment Agreement: Documented signed opioid trtmnt agreemnt min once during opioid trtmnt Measure #408: Opioid Therapy Follow-up Evaluation: Patient had f/u eval minimum every 3 months during opioid therapy Measure #317: Preventitive Care & Scrn High Bld Press & F/U: Normal blood pressure, f/u not required Measure #128: Body Mass Index (BMI) Screening & Follow-up: BMI documented within normal parameters Measure #131: Pain Assessment & Follow-up: Pain positive & plan documented, Follow-up scheduled Measure #431: Unhealthy Alcohol Use Preventative Care & Scrn: Patient not identified as an unhealthy alcohol user PQRS Narrative: Smoking Status Current every day smoker Narcotic Agreement Date Signed 12/21/18 Blood Pressure 129/79 Pain Intensity [Lower Back] 4 Scale Used Numeric (1 - 10) Hx Alcohol Use (MH) No Home Medications: Ambulatory Orders Atorvastatin [Lipitor] 20 mg PO DAILY 10/13/14 QUEtiapine FUMARATE [SEROquel XR] 150 mg PO HS 10/13/14 Dextroamphetamine/Amphetamine [Adderall] 20 mg PO TID 05/27/16 HYDROcodone/APAP 10-325MG [[place] 10-325] 1 tab PO Q6HR PRN 30 Days #120 tab 01/04/19 HYDROcodone/APAP 10-325MG [[place] 10-325] 1 tab PO Q6HR PRN 30 Days #120 tab 01/04/19 Morphine Sulfate ER [Ms Contin] 60 mg PO Q12HR 30 Days #60 tab 01/04/19 Morphine Sulfate ER [Ms Contin] 60 mg PO Q12HR 30 Days #60 tab 01/04/19 Controlled Substance Measures - Controlled Substance Measures Is patient prescribed a controlled substance at discharge?: Yes When asked, does pt state using other controlled substances?: No If prescribed controlled substance>3 days was MAPS reviewed?: Yes If Rx opioid, was Start Talking consent form obtained?: Yes If opioid is for acute pain is fill amount 7 days or less?: No Was information provided regarding opioid addiction?: Yes
== END | disposition home or self-care (01) ==
LOC: PNWHC3 12:08
PROVIDERS: ATTEND Student in an Organized Health Care Education/Training Program
DX: G89.29 Other chronic pain (principal); M51.36 Other intervertebral disc degeneration, lumbar region; M47.816 Spondylosis without myelopathy or radiculopathy, lumbar region; F11.20 Opioid dependence, uncomplicated; F17.200 Nicotine dependence, unspecified, uncomplicated; Z79.899 Other long term (current) drug therapy
CPT/HCPCS: 99211

== ENCOUNTER → 2019-05-02 | Outpatient (CLI) | payer OTHER ==
[2019-05-02 12:23] VITALS: BP 143/94; PULSE 81; RESP 18
--- NOTE | 2019-05-02 12:57 | P.PAINPG ---
Subjective Progress Note Date: 05/02/19 This is follow-up visit for this patient with a history of severe and chronic low back pain secondary to lumbar degenerative disc disease, lumbar spondylosis with facet arthropathy, The patient currently on MS Contin 60 mg twice a day and [place] 10/325 every 8 hours when necessary for pain Patient denies any side effect of the medication , patient denies any excessive drowsiness or sleepiness, patient denies any suicidal ideation, Patient reported that the current medication is helping to control the pain and improve the activity of daily livings, Patient denies any motor or sensory deficit, denies any change in the bowel movement or urination, patient denies any fever or night sweats. Patient here today for follow-up visit and medication refill, she reported increased intensity of the pain over the last few weeks, any activity aggravates his pain Objective - Vital Signs Vital signs: Vital Signs Temp Pulse 81 05/02/19 12:19 Resp 18 05/02/19 12:19 BP 143/94 05/02/19 12:19 Pulse Ox 97 05/02/19 12:19 - Exam Physical Examinations : -Constitutiona : Cooperative , not in acute distress . -HEENT : nech : supple , no Lymphadenopathy , normal thyroid size . eyes : no ptosis , no icterus, no photophobia . - neurologic : Cranial nerve II to XII intact , no focal neurological deffecit . -psychatric : alert , oriented X 3 , appropriate affect , intact judgment and insight . -Lymphatic : no Lymphadenopathy . - musculoskeltal : Lumber spine moter stegnth lower extremities ,thigh and legs 5/5 Right side , 5/5 Left side deep tendon reflexes : normal Knee Jerk , normal ankle Jerk positive lumber facet Loading Test Range of motion of the lumbar spine Flexion 30 degrees, extension 10 degrees strait leg raising test , positive at 30 degree Fabere test positive RT and positive LT . Sever tenderness over the Sacroiliac joint on the R and L sides [place] test positive bilaterally. Seated flexion test positive bilaterally. Assessment and Plan Plan: Assessment and plan= chronic low back pain secondary to lumbar degenerative disc disease , lumbar spondylosis with lumbar facet arthropathy . chronic and current use of high-risk medication (opioids) Patient denies any side effects of the current pain medication and the current treatment/medication helping the patient to do activity of daily living , Diagnoses, prognosis, treatment options, including but not limited to physical therapy, medication management, interventional therapies, and surgery, were discussed with the patient All the questions answered The narcotic consent was signed and patient agreed and understood the side effects and complications of opioid treatment. Patient signed the narcotic agreement, and was orally counseled, not to overuse, not to abuse, not to Divert , not tp sell pain medication, and to take it as prescribed only, Patient was counseled not to drive or operate heavy equipment while using narcotic medication, and advised not to use alcohol or any Illicit drugs while using the narcotis. understanding that lack of compliance with any of the above instructions, will likely to cause discharge from, the pain service, not to renew his narcotic prescriptions MAPS Reviwed and it was apropriate . Medication managements= patient will be given prescription refills for MS Contin 60 mg twice a day dispense 60 with 1 refill and [place] 10/325 every 8 hours dispense 90 with 1 refill A follow-up in the pain clinic in 2 months , PQRS Measure Charge Sheet Measure #130: Documentation of Current Meds in Medical Chart: Patient's medications documented in chart Measure #226: Tobacco Use: Screen & Cessation Intervention: Pt screened for tobacco use AND intervention given Measure #111: Pneumonia Vaccination: Pneumococcal vaccine NOT administered or previously given Measure #47: Advance Care Plan: Advance care planning discussed & documented, pt chose/unable to give Measure #412: Opioid Treatment Agreement: Documented signed opioid trtmnt agreemnt min once during opioid trtmnt Measure #408: Opioid Therapy Follow-up Evaluation: Patient had f/u eval minimum every 3 months during opioid therapy Measure #317: Preventitive Care & Scrn High Bld Press & F/U: Pre-hypertensive or hypertensive BP documented, pt will f/u with PCP Measure #128: Body Mass Index (BMI) Screening & Follow-up: BMI documented within normal parameters Measure #131: Pain Assessment & Follow-up: Pain positive & plan documented, Follow-up scheduled Measure #431: Unhealthy Alcohol Use Preventative Care & Scrn: Patient not identified as an unhealthy alcohol user PQRS Narrative: Smoking Status Current every day smoker Narcotic Agreement Date Signed 12/21/18 Blood Pressure 143/94 Pain Intensity [Lower Back] 6 Scale Used Numeric (1 - 10) Hx Alcohol Use (MH) No Home Medications: Ambulatory Orders Atorvastatin [Lipitor] 20 mg PO DAILY 10/13/14 QUEtiapine FUMARATE [SEROquel XR] 150 mg PO HS 10/13/14 Dextroamphetamine/Amphetamine [Adderall] 20 mg PO TID 05/27/16 HYDROcodone/APAP 10-325MG [[place] 10-325] 1 tab PO Q8HR PRN 30 Days #90 tab 05/02/19 HYDROcodone/APAP 10-325MG [[place] 10-325] 1 tab PO Q8HR PRN 30 Days #90 tab 05/02/19 Morphine Sulfate ER [Ms Contin] 60 mg PO Q12H 30 Days #60 tab 05/02/19 Morphine Sulfate ER [Ms Contin] 60 mg PO Q12HR 30 Days #60 tab 05/02/19 Controlled Substance Measures - Controlled Substance Measures Is patient prescribed a controlled substance at discharge?: Yes When asked, does pt state using other controlled substances?: No If prescribed controlled substance>3 days was MAPS reviewed?: Yes If Rx opioid, was Start Talking consent form obtained?: Yes If opioid is for acute pain is fill amount 7 days or less?: No Was information provided regarding opioid addiction?: Yes
== END ==
LOC: PNWHC3 11:19
PROVIDERS: ATTEND Specialist
DX: G89.29 Other chronic pain (principal); M51.36 Other intervertebral disc degeneration, lumbar region; M47.816 Spondylosis without myelopathy or radiculopathy, lumbar region; M46.96 Unspecified inflammatory spondylopathy, lumbar region; F17.200 Nicotine dependence, unspecified, uncomplicated; Z79.899 Other long term (current) drug therapy; Z79.891 Long term (current) use of opiate analgesic
CPT/HCPCS: 99211

== ENCOUNTER → 2019-06-27 | Outpatient (CLI) | payer OTHER ==
[2019-06-27 11:19] VITALS: BP 134/91; PULSE 95; RESP 20
--- NOTE | 2019-06-28 14:12 | P.PAINPG ---
Subjective Progress Note Date: 06/27/19 Mr. Shabbir Batres is a 59-year-old male who returns to clinic with chronic low back pain, which she describes as stabbing, which is present for 15 years. Pain rated as 6/10. Pain is worse with sitting too long and better with medications. He reports significant psychosocial stressors including his 16-year-old son undergoing the surgery, he is now completely reliant on him, including bathing. His son also has glaucoma and he is stressed regarding his inability to drive. Tearful at today's interview. He reports no changes in the location or quality of his pain, however believes that the intensity is slightly worse due to having to care for his son. He reports that the medications are helping control his pain. He denies side effects from the medication. Review of systems is negative for chest pain, shortness of breath, new onset weakness, numbness/tingling, abdominal pain, malaise, fever, night sweats, chills, homicidal or suicidal ideation, or bowel or bladder incontinence. Objective - Exam Gen: WDWN, AAOx3, NAD, tearful at today's visit HEENT: NCAT, EOMI, hearing grossly normal Pulm: resp unlabored Abd: ND Neck: supple, trachea midline ROM in flexion lumbar spine: Slightly Decreased ROM in extension lumbar spine: Slightly decreased Lumbar paravertebral tenderness: Tender Facet loading: Cause some pain Neuro: muscle strength lower extremities normal Assessment and Plan Assessment: Assessment and plan: 1. Lumbar spondolysis without radiculopathy 2. DDD 3. Chronic opiate dependence 1. Chronic and current use of high-risk medication (opioids) can cause serious complications to overall health. At his last visit there was an extensive discussion talking by reducing his opiate and at his last visit, [place] was decreased from 4 times a day to 10/325 3 times per day. At this point, given his involvement with caring for his son, I will not further reduces opioids. Prescriptions were given for MS Contin 60 mg twice a day dispense 60 with 1 refill and [place] 10/325 every 8 hours dispense 90 with 1 refill. In the future, we will plan on continuing to reduces opioids. 1-Urine Drug Screen and reviewed 2-procedures have not benefited him 3-I provided him with an exercise handout for low back stretching and strengthening exercises. 4-he will follow-up in 8 weeks for medication management Objective - Vital Signs Vital signs: Vital Signs Temp Pulse 95 06/27/19 11:10 Resp 20 06/27/19 11:10 BP 134/91 06/27/19 11:10 Pulse Ox 96 06/27/19 11:10 PQRS Measure Charge Sheet Measure #130: Documentation of Current Meds in Medical Chart: Patient's medications documented in chart Measure #226: Tobacco Use: Screen & Cessation Intervention: Pt screened for tobacco use AND intervention given Measure #111: Pneumonia Vaccination: Pneumococcal vaccine NOT administered or previously given Measure #47: Advance Care Plan: Advance care planning discussed & documented, pt chose/unable to give Measure #412: Opioid Treatment Agreement: Documented signed opioid trtmnt agreemnt min once during opioid trtmnt Measure #408: Opioid Therapy Follow-up Evaluation: Patient had f/u eval minimum every 3 months during opioid therapy Measure #317: Preventitive Care & Scrn High Bld Press & F/U: Pre-hypertensive or hypertensive BP documented, pt will f/u with PCP Measure #128: Body Mass Index (BMI) Screening & Follow-up: BMI documented within normal parameters Measure #131: Pain Assessment & Follow-up: Pain positive & plan documented, Follow-up scheduled Measure #431: Unhealthy Alcohol Use Preventative Care & Scrn: Patient not identified as an unhealthy alcohol user PQRS Narrative: Smoking Status Current every day smoker Narcotic Agreement Date Signed 12/21/18 Blood Pressure 134/91 Pain Intensity [Back] 6 Scale Used Numeric (1 - 10) Hx Alcohol Use (MH) No Home Medications: Ambulatory Orders Atorvastatin [Lipitor] 20 mg PO DAILY 10/13/14 QUEtiapine FUMARATE [SEROquel XR] 150 mg PO HS 10/13/14 Dextroamphetamine/Amphetamine [Adderall] 20 mg PO TID 05/27/16 HYDROcodone/APAP 10-325MG [[place] 10-325] 1 tab PO Q8HR PRN 30 Days #90 tab 05/02/19 Morphine Sulfate ER [Ms Contin] 60 mg PO Q12HR 30 Days #60 tab 05/02/19 Controlled Substance Measures - Controlled Substance Measures Is patient prescribed a controlled substance at discharge?: Yes When asked, does pt state using other controlled substances?: No If prescribed controlled substance>3 days was MAPS reviewed?: Yes If Rx opioid, was Start Talking consent form obtained?: Yes If opioid is for acute pain is fill amount 7 days or less?: No Was information provided regarding opioid addiction?: Yes
== END | disposition home or self-care (01) ==
LOC: PNWHC3 10:49
PROVIDERS: ATTEND Anesthesiology
DX: M51.36 Other intervertebral disc degeneration, lumbar region (principal); M47.816 Spondylosis without myelopathy or radiculopathy, lumbar region; F17.200 Nicotine dependence, unspecified, uncomplicated; Z79.891 Long term (current) use of opiate analgesic; Z79.899 Other long term (current) drug therapy
CPT/HCPCS: 99211

== ENCOUNTER → 2019-08-22 | Outpatient (CLI) | payer OTHER ==
[2019-08-22 11:42] VITALS: BP 143/97; PULSE 75; RESP 18
--- NOTE | 2019-08-22 12:30 | P.PAINPG ---
Subjective Progress Note Date: 08/22/19 This is follow-up visit for this patient with a history of severe and chronic low back pain secondary to lumbar degenerative disc disease, lumbar spondylosis with facet arthropathy, The patient currently on MS Contin 60 mg twice a day and [place] 10/325 every 8 hours when necessary for pain Patient denies any side effect of the medication , patient denies any excessive drowsiness or sleepiness, patient denies any suicidal ideation, Patient reported that the current medication is helping to control the pain and improve the activity of daily livings, Patient denies any motor or sensory deficit, denies any change in the bowel movement or urination, patient denies any fever or night sweats. Patient here today for follow-up visit and medication refill, she reported increased intensity of the pain over the last few weeks, any activity aggravates his pain Objective - Vital Signs Vital signs: Vital Signs Temp Pulse 75 08/22/19 11:38 Resp 18 08/22/19 11:38 BP 143/97 08/22/19 11:38 Pulse Ox Intake & Output 08/21/19 08/22/19 08/22/19 18:59 06:59 18:59 Weight 77.111 kg - Exam -Constitutiona : Cooperative , not in acute distress . -HEENT : nech : supple , no Lymphadenopathy , normal thyroid size . eyes : no ptosis , no icterus, no phot ophobia . - neurologic : Cranial nerve II to XII intact , no focal neurological deffecit . -psychatric : alert , oriented X 3 , appropriate affect , intact judgment and insight . -Lymphatic : no Lymphadenopathy . - musculoskeltal : Lumber spine moter stegnth lower extremities ,thigh and legs 5/5 Right side , 5/5 Left side deep tendon reflexes : normal Knee Jerk , normal ankle Jerk positive lumber facet Loading Test Range of motion of the lumbar spine Flexion 30 degrees, extension 10 degrees strait leg raising test , positive at 30 degree [place] test positive RT and positive LT . Sever tenderness over the Sacroiliac joint on the R and L sides Assessment and Plan Plan: chronic low back pain secondary to lumbar degenerative disc disease , lumbar spondylosis with lumbar facet arthropathy . chronic and current use of high-risk medication (opioids) Patient denies any side effects of the current pain medication and the current treatment/medication helping the patient to do activity of daily living , Diagnoses, prognosis, treatment options, including but not limited to ph ysical therapy, medication management, interventional therapies, and surgery, were discussed with the patient All the questions answered The narcotic consent was signed and patient agreed and understood the side effects and complications of opioid treatment. Patient signed the narcotic agreement, and was orally counseled, not to overuse, not to abuse, not to Divert , not tp sell pain medication, and to take it as prescribed only, Patient was counseled not to drive or operate heavy equipment while using narcotic medication, and advised not to use alcohol or any Illicit drugs while using the narcotis. understanding that lack of compliance with any of the above instructions, will likely to cause discharge from, the pain service, not to renew his narcotic prescriptions MAPS Reviwed and it was apropriate . Medication managements= patient will be given prescription refills for MS Contin 60 mg twice a day dispense 60 with 1 refill and [place] 10/325 every 8 hours dispense 90 with 1 refill A follow-up in the pain clinic in 2 months , Time with Patient: Less than 30 PQRS Measure Charge Sheet Measure #130: Documentation of Current Meds in Medical Chart: Patient's medications documented in chart Measure #226: Tobacco Use: Screen & Cessation Intervention: Pt screened for tobacco use AND intervention given Measure #111: Pneumonia Vaccination: Pneumococcal vaccine NOT administered or previously given Measure #47: Advance Care Plan: Advance care planning discussed & documented, pt chose/unable to give Measure #412: Opioid Treatment Agreement: Documented signed opioid trtmnt agreemnt min once during opioid trtmnt Measure #408: Opioid Therapy Follow-up Evaluation: Patient had f/u eval minimum every 3 months during opioid therapy Measure #317: Preventitive Care & Scrn High Bld Press & F/U: Pre-hypertensive or hypertensive BP documented, pt will f/u with PCP Measure #128: Body Mass Index (BMI) Screening & Follow-up: BMI documented within normal parameters Measure #131: Pain Assessment & Follow-up: Pain positive & plan documented, Follow-up scheduled Measure #431: Unhealthy Alcohol Use Preventative Care & Scrn: Patient not identified as an unhealthy alcohol user PQRS Narrative: Smoking Status Current every day smoker Narcotic Agreement Date Signed 12/21/18 Blood Pressure 143/97 Pain Intensity [Lower Back] 3 Scale Used Numeric (1 - 10) Hx Alcohol Use (MH) No Home Medications: Ambulatory Orders QUEtiapine FUMARATE [SEROquel XR] 200 mg PO HS 10/13/14 Dextroamphetamine/Amphetamine [Adderall] 20 mg PO BID 05/27/16 HYDROcodone/APAP 10-325MG [[place] 10-325] 1 tab PO Q8HR PRN 30 Days #90 tab 08/22/19 HYDROcodone/APAP 10-325MG [[place] 10-325] 1 tab PO Q8HR PRN 30 Days #90 tab 08/22/19 Morphine Sulfate ER [Ms Contin] 60 mg PO Q12HR 30 Days #60 tab 08/22/19 Morphine Sulfate ER [Ms Contin] 60 mg PO Q12HR 30 Days #60 tab 08/22/19 buPROPion XL [Wellbutrin XL] 150 mg PO DAILY 08/22/19 Controlled Substance Measures - Controlled Substance Measures Is patient prescribed a controlled substance at discharge?: Yes When asked, does pt state using other controlled substances?: No If prescribed controlled substance>3 days was MAPS reviewed?: Yes If Rx opioid, was Start Talking consent form obtained?: Yes If opioid is for acute pain is fill amount 7 days or less?: No Was information provided regarding opioid addiction?: Yes
== END | disposition home or self-care (01) ==
LOC: PNWHC3 11:19
PROVIDERS: ATTEND Specialist
DX: G89.29 Other chronic pain (principal); M51.36 Other intervertebral disc degeneration, lumbar region; M47.816 Spondylosis without myelopathy or radiculopathy, lumbar region; M46.96 Unspecified inflammatory spondylopathy, lumbar region; F17.200 Nicotine dependence, unspecified, uncomplicated; Z79.891 Long term (current) use of opiate analgesic; Z79.899 Other long term (current) drug therapy
CPT/HCPCS: 99211

== ENCOUNTER → 2019-12-05 | Outpatient (CLI) | payer OTHER ==
--- NOTE | 2019-12-05 10:44 | P.PAINPG ---
Subjective Progress Note Date: 12/05/19 THIS ENCOUNTER WAS PERFORMED A TELEMEDICINE VISIT VIA TWO-WAY AUDIO TO MINIMIZE RISK AND TRANSMISSION OF COVID-19. Mr. Shabbir Batres is a 59-year-old male who returns to clinic with chronic low back pain, which he describes as stabbing, which is present for 15 years. He current pain medications include [place] 10/325 3 times per day, MS Contin 60 mg twice a day. He reports that the medications are helping control his pain. He denies side effects from the medication. Patient reports that he hurt his back last Thursday while cutting grass. Pain is located in low back, does not radiate to lower extremities. Pain rated as 8-9/10. Pain is better with heat, rest and medications. Pain is worse with activity, bending over to put on socks and shoes. Pain is described as sharp, burning, jabbing. Review of systems is negative for chest pain, shortness of breath, new onset weakness, numbness/tingling, abdominal pain, malaise, fever, night sweats, chills, homicidal or suicidal ideation, or bowel or bladder incontinence. Objective Physical exam was unable to be performed due to audio only telemedicine visit. Assessment and Plan Assessment: Assessment and plan: 1. Lumbar spondolysis without radiculopathy 2. DDD 3. Chronic opiate dependence 1. Chronic and current use of high-risk medication (opioids) can cause serious complications to overall health. Prescriptions were given for MS Contin 60 mg twice a day dispense 60 with 1 refill and [place] 10/325 every 8 hours dispense 90 with 1 refill. Maps report reviewed and is congruent procedures have not benefited him in the past He will follow-up in 8 weeks for medication management PQRS Measure Charge Sheet PQRS Narrative: Smoking Status Current every day smoker Narcotic Agreement Date Signed 12/21/18 Hx Alcohol Use (MH) No Home Medications: Ambulatory Orders QUEtiapine FUMARATE [SEROquel XR] 200 mg PO HS 10/13/14 Dextroamphetamine/Amphetamine [Adderall] 20 mg PO BID 05/27/16 buPROPion XL [Wellbutrin XL] 150 mg PO DAILY 08/22/19 HYDROcodone/APAP 10-325MG [[place] 10-325] 1 tab PO Q8HR PRN 30 Days #90 tab 12/05/19 HYDROcodone/APAP 10-325MG [[place] 10-325] 1 tab PO Q8HR PRN 30 Days #90 tab 12/05/19 Morphine Sulfate ER [Ms Contin] 60 mg PO Q12HR 30 Days #60 tab 12/05/19 Morphine Sulfate ER [Ms Contin] 60 mg PO Q12HR 30 Days #60 tab 12/05/19 Controlled Substance Measures - Controlled Substance Measures Is patient prescribed a controlled substance at discharge?: Yes When asked, does pt state using other controlled substances?: No If prescribed controlled substance>3 days was MAPS reviewed?: Yes If Rx opioid, was Start Talking consent form obtained?: Yes If opioid is for acute pain is fill amount 7 days or less?: No Was information provided regarding opioid addiction?: Yes
== END | disposition home or self-care (01) ==
LOC: PNWHC3 07:41
PROVIDERS: ATTEND Anesthesiology
DX: Z53.9 Procedure and treatment not carried out, unspecified reason (principal)

== ENCOUNTER → 2020-01-25 | Outpatient (CLI) | payer OTHER ==
--- NOTE | 2020-01-26 12:12 | P.PAINPG ---
Subjective Progress Note Date: 01/25/20 This is follow-up visit for this patient with a history of severe and chronic low back pain secondary to lumbar degenerative disc disease, lumbar spondylosis with facet arthropathy, The patient currently on MS Contin 60 mg twice a day and Crawford 10/325 every 8 hours when necessary for pain Patient denies any side effect of the medication , patient denies any excessive drowsiness or sleepiness, patient denies any suicidal ideation, Patient reported that the current medication is helping to control the pain and improve the activity of daily livings, Patient denies any motor or sensory deficit, denies any change in the bowel movement or urination, patient denies any fever or night sweats. Patient here today for follow-up visit and medication refill, she reported increased intensity of the pain over the last few weeks, any activity aggravates his pain Objective - Exam -Constitutiona : Cooperative , not in acute distress . -HEENT : nech : supple , no Lymphadenopathy , normal thyroid size . eyes : no ptosis , no icterus, no photophobia . - neurologic : Cranial nerve II to XII intact , no focal neurological deffecit . -psychatric : alert , oriented X 3 , appropriate affect , intact judgment and insight . -Lymphatic : no Lymphadenopathy . - musculoskeltal : Lumber spine moter stegnth lower extremities ,thigh and legs 5/5 Right side , 5/5 Left side deep tendon reflexes : normal Knee Jerk , normal ankle Jerk positive lumber facet Loading Test Range of motion of the lumbar spine Flexion 30 degrees, extension 10 degrees strait leg raising test , positive at 30 degree Fabere test positive RT and positive LT . Sever tenderness over the Sacroiliac joint on the R and L sides Assessment and Plan Plan: chronic low back pain secondary to lumbar degenerative disc disease , lumbar spondylosis with lumbar facet arthropathy . chronic and current use of high-risk medication (opioids) Patient denies any side effects of the current pain medication and the current treatment/medication helping the patient to do activity of daily living , Diagnoses, prognosis, treatment options, including but not limited to physical therapy, medication management, interventional therapies, and surgery, were discussed with the patient All the questions answered The narcotic consent was signed and patient agreed and understood the side effects and complications of opioid treatment. Patient signed the narcotic agreement, and was orally counseled, not to overuse, not to abuse, not to Divert , not tp sell pain medication, and to take it as prescribed only, Patient was counseled not to drive or operate heavy equipment while using narcotic medication, and advised not to use alcohol or any Illicit drugs while using the narcotis. understanding that lack of compliance with any of the above instructions, wi ll likely to cause discharge from, the pain service, not to renew his narcotic prescriptions MAPS Reviwed and it was apropriate . Medication managements= patient will be given prescription refills for MS Contin 60 mg twice a day dispense 60 with 1 refill and Crawford 10/325 every 8 hours dispense 90 with 1 refill A follow-up in the pain clinic in 2 months Time with Patient: Less than 30 PQRS Measure Charge Sheet Measure #130: Documentation of Current Meds in Medical Chart: Patient's medications documented in chart Measure #226: Tobacco Use: Screen & Cessation Intervention: Pt screened for tobacco use AND intervention given Measure #111: Pneumonia Vaccination: Pneumococcal vaccine NOT administered or previously given Measure #47: Advance Care Plan: Advance care planning discussed & documented, pt chose/unable to give Measure #412: Opioid Treatment Agreement: Documented signed opioid trtmnt agreemnt min once during opioid trtmnt Measure #408: Opioid Therapy Follow-up Evaluation: Patient had f/u eval minimum every 3 months during opioid therapy Measure #317: Preventitive Care & Scrn High Bld Press & F/U: Normal blood pressure, f/u not required Measure #128: Body Mass Index (BMI) Screening & Follow-up: BMI documented ABOVE normal parameters - f/u documented Measure #131: Pain Assessment & Follow-up: Pain positive & plan documented, Follow-up scheduled Measure #431: Unhealthy Alcohol Use Preventative Care & Scrn: Patient not identified as an unhealthy alcohol user PQRS Narrative: Smoking Status Current every day smoker Narcotic Agreement Date Signed 12/21/18 Pain Intensity [Lower Back] 6 Scale Used Numeric (1 - 10) Hx Alcohol Use (MH) No Home Medications: Ambulatory Orders QUEtiapine FUMARATE [SEROquel XR] 200 mg PO HS 10/13/14 Dextroamphetamine/Amphetamine [Adderall] 20 mg PO BID 05/27/16 buPROPion XL [Wellbutrin XL] 150 mg PO DAILY 08/22/19 HYDROcodone/APAP 10-325MG [Crawford 10-325] 1 tab PO Q8HR PRN 30 Days #90 tab 12/05/19 Morphine Sulfate ER [Ms Contin] 60 mg PO Q12HR 30 Days #60 tab 12/05/19 Controlled Substance Measures - Controlled Substance Measures Is patient prescribed a controlled substance at discharge?: Yes When asked, does pt state using other controlled substances?: No If prescribed controlled substance>3 days was MAPS reviewed?: Yes If Rx opioid, was Start Talking consent form obtained?: Yes If opioid is for acute pain is fill amount 7 days or less?: No Was information provided regarding opioid addiction?: Yes
[2020-01-27 10:10] VITALS: BP 126/84; PULSE 74; RESP 16
== END | disposition home or self-care (01) ==
LOC: PNWHC3 08:51
PROVIDERS: ATTEND Specialist
DX: G89.29 Other chronic pain (principal); M51.36 Other intervertebral disc degeneration, lumbar region; M47.816 Spondylosis without myelopathy or radiculopathy, lumbar region; F11.90 Opioid use, unspecified, uncomplicated; F17.200 Nicotine dependence, unspecified, uncomplicated; Z79.899 Other long term (current) drug therapy
CPT/HCPCS: 80307; G0482; G0463; 99211

== ENCOUNTER → 2020-03-21 | Outpatient (CLI) | payer OTHER ==
[2020-03-21 08:59] VITALS: BP 122/86; PULSE 75; RESP 14; TEMP 98.5
--- NOTE | 2020-03-21 09:14 | P.PN ---
Subjective Progress Note Date: 03/21/20 This is follow-up visit for this patient with a history of severe and chronic low back pain secondary to lumbar degenerative disc disease, lumbar spondylosis with facet arthropathy, And lumbar herniated disc disease, patient had interventional pain procedure done in the past and he reported that he had no benefit and he is not willing to have any surgical interventions The patient currently on MS Contin 60 mg twice a day and Jenkins 10/325 every 8 hours when necessary for pain Patient denies any side effect of the medication , patient denies any excessive drowsiness or sleepiness, patient denies any suicidal ideation, Patient reported that the current medication is helping to control the pain and improve the activity of daily livings, Patient denies any motor or sensory deficit, denies any change in the bowel movement or urination, patient denies any fever or night sweats. Patient here today for follow-up visit and medication refill, she reported increased intensity of the pain over the last few weeks, any activity aggravates his pain Physical examination -Constitutiona : Cooperative , not in acute distress . -HEENT : nech : supple , no Lymphadenopathy , normal thyroid size . eyes : no ptosis , no icterus, no photophobia . - neurologic : Cranial nerve II to XII intact , no focal neurological deffecit . -psychatric : alert , oriented X 3 , appropriate affect , i ntact judgment and insight . -Lymphatic : no Lymphadenopathy . - musculoskeltal : Lumber spine moter stegnth lower extremities ,thigh and legs 5/5 Right side , 5/5 Left side deep tendon reflexes : normal Knee Jerk , normal ankle Jerk positive lumber facet Loading Test Range of motion of the lumbar spine Flexion 30 degrees, extension 10 degrees strait leg raising test , positive at 30 degree Fabere test positive RT and positive LT . Sever tenderness over the Sacroiliac joint on the R and L sides Assessment and Plan: chronic low back pain secondary to lumbar degenerative disc disease , lumbar herniated disc disease, lumbar spondylosis with lumbar facet arthropathy . chronic and current use of high-risk medication (opioids) Patient denies any side effects of the current pain medication and the current treatment/medication helping the patient to do activity of daily living , Diagnoses, prognosis, treatment options, including but not limited to physical therapy, medication management, interventional therapies, and surgery, were discussed with the patient All the questions answered The narcotic consent was signed and patient agreed and understood the side effects and complications of opioid treatment. Patient signed the narcotic agreement, and was orally counseled, not to overuse, not to abuse, not to Divert , not tp sell pain medication, and to take it as prescribed only, Patient was counseled not to drive or operate heavy equipment while using narcotic medication, and advised not to use alcohol or any Illicit drugs while using the narcotis. understanding that lack of compliance with any of the above instructions, will likely to cause discharge from, the pain service, not to renew his narcotic prescriptions MAPS Reviwed and it was apropriate . UDS done 01/25/2020 that was okay Medication managements= patient will be given prescription refills for MS Contin 60 mg twice a day dispense 60 with 1 refill and Jenkins 10/325 every 8 hours dispense 90 with 1 refill A follow-up in the pain clinic in 2 months Interventions= patient reports that he had no benefit from previous interventional pain procedure done in the past, he is not willing to have any procedure Referral= patient is not willing to have any surgical interventions Time with Patient: Less than 30 PQRS Measure Charge Sheet Measure #130: Documentation of Current Meds in Medical Chart: Patient's medications documented in chart Measure #226: Tobacco Use: Screen & Cessation Intervention: Pt screened for tobacco use AND intervention given Measure #111: Pneumonia Vaccination: Pneumococcal vaccine administered or previously given Measure #47: Advance Care Plan: Advance care planning discussed & documented, pt chose/unable to give Measure #412: Opioid Treatment Agreement: Documented signed opioid trtmnt agreemnt min once during opioid trtmnt Measure #408: Opioid Therapy Follow-up Evaluation: Patient had f/u eval minimum every 3 months during opioid therapy Measure #317: Preventitive Care & Scrn High Bld Press & F/U: Normal blood pressure, f/u not required Measure #128: Body Mass Index (BMI) Screening & Follow-up: BMI documented within normal parameters - f/u documented Measure #131: Pain Assessment & Follow-up: Pain positive & plan documented, Follow-up scheduled Measure #431: Unhealthy Alcohol Use Preventative Care & Scrn: Patient not identified as an unhealthy alcohol user PQRS Narrative: - Controlled Substance Measures Is patient prescribed a controlled substance at discharge?: Yes When asked, does pt state using other controlled substances?: No If prescribed controlled substance>3 days was MAPS reviewed?: Yes If Rx opioid, was Start Talking consent form obtained?: Yes If opioid is for acute pain is fill amount 7 days or less?: No Was information provided regarding opioid addiction?: Yes Objective - Vital Signs Vital signs: Vital Signs Temp 98.5 F 03/21/20 08:52 Pulse 75 03/21/20 08:52 Resp 14 03/21/20 08:52 BP 122/86 03/21/20 08:52 Pulse Ox 94 L 03/21/20 08:52
== END | disposition home or self-care (01) ==
LOC: PNWHC3 08:29
PROVIDERS: ATTEND Specialist
DX: M51.36 Other intervertebral disc degeneration, lumbar region (principal); M51.26 Other intervertebral disc displacement, lumbar region; M47.816 Spondylosis without myelopathy or radiculopathy, lumbar region; M46.96 Unspecified inflammatory spondylopathy, lumbar region
CPT/HCPCS: 99211

== ENCOUNTER → 2020-05-16 | Outpatient (CLI) | payer OTHER ==
[2020-05-16 10:12] VITALS: BP 139/85; PULSE 88; RESP 18; TEMP 97.9
--- NOTE | 2020-05-16 10:50 | P.PAINPG ---
Subjective Progress Note Date: 05/16/20 Shabbir presents for follow-up today secondary to his chronic low back pain. He has long history of using pain medications and is been well controlled. He is here today with chronic low back into VAS of 6 out of 10. Pain that goes across his back and into his legs occasionally. He is at the [facility]. Rest does improve his pain. He is very stressed out about some work is having his house. He feels that the pain medication does help him. He has no side effects of medication. He had been stable on these notes for a long time Objective - Vital Signs Vital signs: Vital Signs Temp 97.9 F 05/16/20 10:07 Pulse 88 05/16/20 10:07 Resp 18 05/16/20 10:07 BP 139/85 05/16/20 10:07 Pulse Ox 95 05/16/20 10:07 Intake & Output 05/15/20 05/16/20 05/16/20 18:59 06:59 18:59 Weight 77.111 kg - Exam General: Awake and alert oriented 3 no distress Respiratory exam: No audible wheezing no accessory muscle usage Cardiovascular exam: regular rate, palpable bilateral pulses, no lower extremity edema Abdominal exam: No distention nontender to palpation Cervical spine: Normal alignment, Spurling's negative, facet loading negative, [employer] strength is 5/5, lam negative Lumbar spine: Loss of lumbar lordosis, normal alignment, tender to palpation over bilateral paraspinal muscles, facet loading is positive bilaterally. Straight leg raise is negative. Limited range of motion due to pain with flexion, extension and side bending. Neuro exam: Normal sensation in bilateral upper extremities, deep tendon reflexes are 2+ bilateral upper extremities. Normal sensation in bilateral lower extremities. Deep tendon reflexes are 1+ in lower extremities Psych exam: Cooperative, appropriate mood Assessment and Plan Assessment: #1 lumbar spondylosis without myelopathy #2 lumbar radiculopathy #3 chronic opioid dependence #4 anxiety Plan: We'll continue the current medications continue to monitor the patient closely. Your injection was reviewed and is appropriate. Maps was checked and is appropriate. PQRS Measure Charge Sheet Measure #130: Documentation of Current Meds in Medical Chart: Patient's medications documented in chart Measure #226: Tobacco Use: Screen & Cessation Intervention: Pt screened for tobacco use AND intervention given Measure #111: Pneumonia Vaccination: Pneumococcal vaccine administered or previously received Measure #47: Advance Care Plan: Advance care planning discussed & documented, plan or surrogate given Measure #412: Opioid Treatment Agreement: Documented signed opioid trtmnt agreemnt min once during opioid trtmnt Measure #408: Opioid Therapy Follow-up Evaluation: Patient had f/u eval minimum every 3 months during opioid therapy Measure #317: Preventitive Care & Scrn High Bld Press & F/U: Normal blood pressure, f/u not required Measure #128: Body Mass Index (BMI) Screening & Follow-up: BMI documented ABOVE normal parameters - f/u documented Measure #131: Pain Assessment & Follow-up: Pain positive & plan documented Measure #431: Unhealthy Alcohol Use Preventative Care & Scrn: Patient not identified as an unhealthy alcohol user PQRS Narrative: Smoking Status Current every day smoker Narcotic Agreement Date Signed 01/25/20 Blood Pressure 139/85 Pain Intensity [Back] 3 Scale Used Numeric (1 - 10) Hx Alcohol Use (MH) No Home Medications: Ambulatory Orders QUEtiapine FUMARATE [SEROquel XR] 200 mg PO HS 10/13/14 Dextroamphetamine/Amphetamine [Adderall] 20 mg PO BID 05/27/16 buPROPion XL [Wellbutrin XL] 150 mg PO DAILY 08/22/19 HYDROcodone/APAP 10-325MG [Clifford 10-325] 1 tab PO Q8HR PRN 30 Days #90 tab 05/16/20 HYDROcodone/APAP 10-325MG [Clifford 10-325] 1 tab PO Q8HR PRN 30 Days #90 tab 05/16/20 Morphine Sulfate ER [Ms Contin] 60 mg PO Q12H 30 Days #60 tab 05/16/20 Morphine Sulfate ER [Ms Contin] 60 mg PO Q12HR 30 Days #60 tab 05/16/20 Controlled Substance Measures - Controlled Substance Measures Is patient prescribed a controlled substance at discharge?: Yes When asked, does pt state using other controlled substances?: No If prescribed controlled substance>3 days was MAPS reviewed?: Yes If Rx opioid, was Start Talking consent form obtained?: Yes If opioid is for acute pain is fill amount 7 days or less?: No Was information provided regarding opioid addiction?: Yes
== END | disposition home or self-care (01) ==
LOC: PNWHC3 09:47
PROVIDERS: ATTEND Hospitalist
DX: M47.26 Other spondylosis with radiculopathy, lumbar region (principal); F11.20 Opioid dependence, uncomplicated; F41.9 Anxiety disorder, unspecified; F17.200 Nicotine dependence, unspecified, uncomplicated; Z79.899 Other long term (current) drug therapy
CPT/HCPCS: 99211

== ENCOUNTER → 2020-07-25 | Outpatient (CLI) | payer OTHER ==
[2020-07-25 10:17] VITALS: BP 118/83; PULSE 83; RESP 16; TEMP 97.8
--- NOTE | 2020-07-25 10:25 | P.PN ---
Subjective Progress Note Date: 07/25/20 This is a 60-year-old gentleman with history of axial lower back pain with no radiation to the lower extremities. The patient feels some weakness in his lower extremities which has been stable. The patient did not respond to interventional pain procedures previously. He takes or diffuse to help control his pain including MS Contin 60 mg twice a day and Flagler 10 mg 3 times a day. I spoke with the patient about trying to decrease his dose of opioids gradually over time but he was resistant to this idea saying that his pain is worse in the winter however he promised to try that in the summer time. The patient lives with his son who helps him out with his daily activities. Patient denies new-onset weakness, bowel/bladder incontinence, or any other signs or symptoms of cauda equina syndrome. There are no signs of acute intoxication, and no indications of medication diversion or overuse. In addition to above, 13-point review of systems is also negative for chest pain, shortness of breath, changes in vision, changes in hearing, new onset weakness, abdominal pain, diarrhea, extreme fatigue, malaise, fever, skin changes, homicidal or suicidal ideation, or bowel or bladder incontinence. Vital Signs: Reviewed in EMR Gen: AAOx3, NAD HEENT: PERRLA,hearing grossly normal Pulm: resp unlabored Neck: supple, trachea midline Neuro exam of the lower extremities: Decreased muscle strength to 4 out of 5 bilaterally for knee flexion and extension and normal ankle flexion and extension bilaterally. Straight leg raising test: Carlos Alberto's test: Range of motion of the lumbar spine: Facet loading test: Tenderness in the paravertebral musculature: Positive tenderness in the lumbar paravertebral musculature Neuro: CN II-XII grossly intact, Imaging: Reviewed in EMR/chart Assessment: Lumbar spondylosis without myelopathy Lumbar DDD Lumbar spondylolisthesis Opioid dependence Plan: 1. Explanation: Opioid and psychological risk scores were reviewed. Diagnoses, prognoses, and multiple treatment options including but not limited to physical therapy, interventional therapies, adjuvant medical therapies, narcotic medication therapies, and surgery were discussed with the patient and all questions were answered to the patient's satisfaction. 2. Opioid agreement: Signed with the patient and the patient is warned not to use opioids while driving or before driving and not to combine opioids with benzodiazepines or alcohol. 3. Counseling: The patient was counseled extensively on SMOKING CESSATION, BODY MASS INDEX, EXERCISE. Specifically, the patient was instructed regarding the importance of smoking cessation, obesity, and exercise in the context of both chronic pain and overall health. 4. Procedures: None 5. Consultations: May need another round of physical therapy in the future 6. Investigations: UDS today 7. Medications: Continue MS Contin 60 mg twice a day #60 pills, and Flagler 10 mg 3 times a day #90 pills. 8. Disposition: Return to clinic in 8 weeks 9. Maps were reviewed and were appropriate. Controlled Substance Measures Is patient prescribed a controlled substance at discharge?: Yes When asked, does pt state using other controlled substances?: No If prescribed controlled substance>3 days was MAPS reviewed?: Yes If Rx opioid, was Start Talking consent form obtained?: Yes If opioid is for acute pain is fill amount 7 days or less?: No Was information provided regarding opioid addiction?: Yes Objective - Vital Signs Vital signs: Vital Signs Temp 97.8 F 07/25/20 10:16 Pulse 83 07/25/20 10:16 Resp 16 07/25/20 10:16 BP 118/83 07/25/20 10:16 Pulse Ox 98 07/25/20 10:16
== END | disposition home or self-care (01) ==
LOC: PNWHC3 10:03
PROVIDERS: ATTEND Anesthesiology
DX: M51.36 Other intervertebral disc degeneration, lumbar region (principal); M43.16 Spondylolisthesis, lumbar region; M47.816 Spondylosis without myelopathy or radiculopathy, lumbar region; F11.20 Opioid dependence, uncomplicated
CPT/HCPCS: 80307; G0482; G0463; 99211

== ENCOUNTER → 2020-09-24 | Outpatient (CLI) | payer OTHER ==
--- NOTE | 2020-09-24 13:38 | P.PN ---
Subjective Progress Note Date: 09/24/20 This is follow-up visit for this patient with a history of severe and chronic low back pain secondary to lumbar degenerative disc disease, lumbar spondylosis with facet arthropathy, And lumbar herniated disc disease, patient had interventional pain procedure done in the past and he reported that he had no benefit and he is not willing to have any surgical interventions The patient currently on MS Contin 60 mg twice a day and [place] 10/325 every 8 hours when necessary for pain Patient denies any side effect of the medication , patient denies any excessive drowsiness or sleepiness, patient denies any suicidal ideation, Patient reported that the current medication is helping to control the pain and improve the activity of daily livings, Patient denies any motor or sensory deficit, denies any change in the bowel movement or urination, patient denies any fever or night sweats. Patient here today for follow-up visit and medication refill, she reported increased intensity of the pain over the last few weeks, any activity aggravates his pain Physical examination -Constitutiona : Cooperative , not in acute distress . -HEENT : nech : supple , no Lymphadenopathy , normal thyroid size . eyes : no ptosis , no icterus, no photophobia . - neurologic : Cranial nerve II to XII intact , no focal neurological deffecit . -psychatric : alert , oriented X 3 , appropriate affect , i ntact judgment and insight . -Lymphatic : no Lymphadenopathy . - musculoskeltal : Lumber spine moter stegnth lower extremities ,thigh and legs 5/5 Right side , 5/5 Left side deep tendon reflexes : normal Knee Jerk , normal ankle Jerk positive lumber facet Loading Test Range of motion of the lumbar spine Flexion 30 degrees, extension 10 degrees strait leg raising test , positive at 30 degree Fabere test positive RT and positive LT . Sever tenderness over the Sacroiliac joint on the R and L sides Assessment and Plan: chronic low back pain secondary to lumbar degenerative disc disease , lumbar herniated disc disease, lumbar spondylosis with lumbar facet arthropathy . chronic and current use of high-risk medication (opioids) Patient denies any side effects of the current pain medication and the current treatment/medication helping the patient to do activity of daily living , Diagnoses, prognosis, treatment options, including but not limited to physical therapy, medication management, interventional therapies, and surgery, were discussed with the patient All the questions answered The narcotic consent was signed and patient agreed and understood the side effects and complications of opioid treatment. Patient signed the narcotic agreement, and was orally counseled, not to overuse, not to abuse, not to Divert , not tp sell pain medication, and to take it as prescribed only, Patient was counseled not to drive or operate heavy equipment while using narcotic medication, and advised not to use alcohol or any Illicit drugs while using the narcotis. understanding that lack of compliance with any of the above instructions, will likely to cause discharge from, the pain service, not to renew his narcotic prescriptions MAPS Reviwed and it was apropriate . UDS reviwed ,and it was okay Medication managements= patient will be given prescription refills for MS Contin 60 mg twice a day dispense 60 with 1 refill and [place] 10/325 every 8 hours dispense 90 with 1 refill A follow-up in the pain clinic in 2 months Interventions= patient reports that he had no benefit from previous interventional pain procedure done in the past, he is not willing to have any procedure Referral= patient is not willing to have any surgical interventions Time with Patient: Less than 30 PQRS Measure Charge Sheet Measure #130: Documentation of Current Meds in Medical Chart: Patient's medications documented in chart Measure #226: Tobacco Use: Screen & Cessation Intervention: Pt screened for tobacco use AND intervention given Measure #111: Pneumonia Vaccination: Pneumococcal vaccine administered or previously given Measure #47: Advance Care Plan: Advance care planning discussed & documented, pt chose/unable to give Measure #412: Opioid Treatment Agreement: Documented signed opioid trtmnt agreemnt min once during opioid trtmnt Measure #408: Opioid Therapy Follow-up Evaluation: Patient had f/u eval minimum every 3 months during opioid therapy Measure #317: Preventitive Care & Scrn High Bld Press & F/U: elevated blood pressure (144/94) Measure #128: Body Mass Index (BMI) Screening & Follow-up: BMI documented within normal parameters - f/u documented Measure #131: Pain Assessment & Follow-up: Pain positive & plan documented, Follow-up scheduled Measure #431: Unhealthy Alcohol Use Preventative Care & Scrn: Patient not identified as an unhealthy alcohol user PQRS Narrative: - Controlled Substance Measures Is patient prescribed a controlled substance at discharge?: Yes When asked, does pt state using other controlled substances?: No If prescribed controlled substance>3 days was MAPS reviewed?: Yes If Rx opioid, was Start Talking consent form obtained?: Yes If opioid is for acute pain is fill amount 7 days or less?: No Was information provided regarding opioid addiction?: Yes Objective - Vital Signs Vital signs: Vital Signs Temp 98.0 F 09/24/20 12:36 Pulse 69 09/24/20 12:36 Resp 18 09/24/20 12:36 BP 144/94 09/24/20 12:36 Pulse Ox 95 09/24/20 12:36 Intake & Output 09/23/20 09/24/20 09/24/20 18:59 06:59 18:59 Weight 77.111 kg
== END | disposition home or self-care (01) ==
CPT/HCPCS: 99211

== ENCOUNTER → 2020-11-19 | Outpatient (CLI) | payer OTHER ==
[2020-11-19 11:26] VITALS: BP 123/79; PULSE 72; RESP 16; TEMP 97.6
--- NOTE | 2020-11-20 08:22 | P.PN ---
Subjective Progress Note Date: 11/19/20 This is follow-up visit for this patient with a history of severe and chronic low back pain secondary to lumbar degenerative disc disease, lumbar spondylosis with facet arthropathy, And lumbar herniated disc disease, patient had interventional pain procedure done in the past and he reported that he had no benefit and he is not willing to have any surgical interventions The patient currently on MS Contin 60 mg twice a day and [place] 10/325 every 8 hours when necessary for pain Patient denies any side effect of the medication , patient denies any excessive drowsiness or sleepiness, patient denies any suicidal ideation, Patient reported that the current medication is helping to control the pain and improve the activity of daily livings, Patient denies any motor or sensory deficit, denies any change in the bowel movement or urination, patient denies any fever or night sweats. Patient here today for follow-up visit and medication refill, she reported increased intensity of the pain over the last few weeks, any activity aggravates his pain Physical examination -Constitutiona : Cooperative , not in acute distress . -HEENT : nech : supple , no Lymphadenopathy , normal thyroid size . eyes : no ptosis , no icterus, no photophobia . - neurologic : Cranial nerve II to XII intact , no focal neurological deffecit . -psychatric : alert , oriented X 3 , appropriate affect , i ntact judgment and insight . -Lymphatic : no Lymphadenopathy . - musculoskeltal : Lumber spine moter stegnth lower extremities ,thigh and legs 5/5 Right side , 5/5 Left side deep tendon reflexes : normal Knee Jerk , normal ankle Jerk positive lumber facet Loading Test Range of motion of the lumbar spine Flexion 30 degrees, extension 10 degrees strait leg raising test , positive at 30 degree Fabere test positive RT and positive LT . Sever tenderness over the Sacroiliac joint on the R and L sides Assessment and Plan: chronic low back pain secondary to lumbar degenerative disc disease , lumbar herniated disc disease, lumbar spondylosis with lumbar facet arthropathy . chronic and current use of high-risk medication (opioids) Patient denies any side effects of the current pain medication and the current treatment/medication helping the patient to do activity of daily living , Diagnoses, prognosis, treatment options, including but not limited to physical therapy, medication management, interventional therapies, and surgery, were discussed with the patient All the questions answered The narcotic consent was signed and patient agreed and understood the side effects and complications of opioid treatment. Patient signed the narcotic agreement, and was orally counseled, not to overuse, not to abuse, not to Divert , not tp sell pain medication, and to take it as prescribed only, Patient was counseled not to drive or operate heavy equipment while using narcotic medication, and advised not to use alcohol or any Illicit drugs while using the narcotis. understanding that lack of compliance with any of the above instructions, will likely to cause discharge from, the pain service, not to renew his narcotic prescriptions MAPS Reviwed and it was apropriate . UDS reviwed ,and it was okay Medication managements= patient will be given prescription refills for MS Contin 60 mg twice a day dispense 60 with 1 refill and [place] 10/325 every 8 hours dispense 90 with 1 refill A follow-up in the pain clinic in 2 months Interventions= patient reports that he had no benefit from previous interventional pain procedure done in the past, he is not willing to have any procedure Referral= patient is not willing to have any surgical interventions Time with Patient: Less than 30 - PQRS measures = - Patient's medications are documented in the chart. -Tobacco use is positive, and counseling.Given. -Patient's has not received pneumococcal vaccine. -Advanced care planning discussed, patient not eligible. -Opiate contract signed. -Pain positive and follow-up visit/procedure is scheduled. -Patient's blood pressure measured [ 123/79 ] , and documented in the record ,and patient will follow up with the primary care. -Patient's weight was measured and body mass index [ 24.4 ] within the normal limits and counseling was done. and patient instructed to follow-up with the primary care physician. -Patient was not identified as an unhealthy alcohol user Objective - Vital Signs Vital signs: Vital Signs Temp 97.6 F 11/19/20 11:25 Pulse 72 11/19/20 11:25 Resp 16 11/19/20 11:25 BP 123/79 11/19/20 11:25 Pulse Ox 97 11/19/20 11:25
== END ==
LOC: PNWHC3 10:01
PROVIDERS: ATTEND Specialist
DX: M51.36 Other intervertebral disc degeneration, lumbar region (principal); M47.816 Spondylosis without myelopathy or radiculopathy, lumbar region; M51.26 Other intervertebral disc displacement, lumbar region; G89.29 Other chronic pain; Z79.891 Long term (current) use of opiate analgesic
CPT/HCPCS: 99211

== ENCOUNTER → 2021-01-14 | Outpatient (CLI) | payer OTHER ==
[2021-01-14 11:12] VITALS: BP 126/79; PULSE 75; RESP 18; TEMP 98.2
--- NOTE | 2021-01-14 14:43 | P.PN ---
Subjective Principal diagnosis: This is follow-up visit for this patient with a history of severe and chronic low back pain secondary to lumbar degenerative disc disease, lumbar spondylosis with facet arthropathy, And lumbar herniated disc disease, patient had interventional pain procedure done in the past and he reported that he had no benefit and he is not willing to have any surgical interventions The patient currently on MS Contin 60 mg twice a day and [place] 10/325 every 8 hours when necessary for pain Patient denies any side effect of the medication , patient denies any excessive drowsiness or sleepiness, patient denies any suicidal ideation, Patient reported that the current medication is helping to control the pain and improve the activity of daily livings, Patient denies any motor or sensory deficit, denies any change in the bowel movement or urination, patient denies any fever or night sweats. Patient here today for follow-up visit and medication refill, she reported increased intensity of the pain over the last few weeks, any activity aggravates his pain Physical examination -Constitutiona : Cooperative , not in acute distress . -HEENT : nech : supple , no Lymphadenopathy , normal thyroid size . eyes : no ptosis , no icterus, no photophobia . - neurologic : Cranial nerve II to XII intact , no focal neurological deffecit . -psychatric : alert , oriented X 3 , appropriate affect , intact judgment and insight . -Lymphatic : no Lymphadenopathy . - musculoskeltal : Lumber spine moter stegnth lower extremities ,thigh and legs 5/5 Right side , 5/5 Left side deep tendon reflexes : normal Knee Jerk , normal ankle Jerk positive lumber facet Loading Test Range of motion of the lumbar spine Flexion 30 degrees, extension 10 degrees strait leg raising test , positive at 30 degree Fabere test positive RT and positive LT . Sever tenderness over the Sacroiliac joint on the R and L sides Assessment and Plan: chronic low back pain secondary to lumbar degenerative disc disease , lumbar herniated disc disease, lumbar spondylosis with lumbar facet arthropathy . chronic and current use of high-risk medication (opioids) Patient denies any side effects of the current pain medication and the current treatment/medication helping the patient to do activity of daily living , Diagnoses, prognosis, treatment options, including but not limited to physical therapy, medication management, interventional therapies, and surgery, were discussed with the patient All the questions answered The narcotic consent was signed and patient agreed and understood the side effects and complications of opioid treatment. Patient signed the narcotic agreement, and was orally counseled, not to overuse, not to abuse, not to Divert , not tp sell pain medication, and to take it as prescribed only, Patient was counseled not to drive or operate heavy equipment while using narcotic medication, and advised not to use alcohol or any Illicit drugs while using the narcotis. understanding that lack of compliance with any of the above instructions, will likely to cause discharge from, the pain service, not to renew his narcotic prescriptions MAPS Reviwed and it was apropriate . UDS ORDERED TODAY Medication managements= patient will be given prescription refills for MS Contin 60 mg twice a day dispense 60 with 1 refill and [place] 10/325 every 8 hours dispense 90 with 1 refill A follow-up in the pain clinic in 2 months Interventions= patient reports that he had no benefit from previous interv entional pain procedure done in the past, he is not willing to have any procedure Referral= patient is not willing to have any surgical interventions Time with Patient: Less than 30 - PQRS measures = - Patient's medications are documented in the chart. -Tobacco use is positive, and counseling.Given. -Patient's has not received pneumococcal vaccine. -Advanced care planning discussed, patient not eligible. -Opiate contract signed. -Pain positive and follow-up visit/procedure is scheduled. -Patient's blood pressure measured [ 126/79 ] , and documented in the record ,and patient will follow up with the primary care. -Patient's weight was measured and body mass index [ ] within the normal limits and counseling was done. and patient instructed to follow-up with the primary care physician. -Patient was not identified as an unhealthy alcohol user Objective - Vital Signs Vital signs: Vital Signs Temp 98.2 F 01/14/21 11:08 Pulse 75 01/14/21 11:08 Resp 18 01/14/21 11:08 BP 126/79 01/14/21 11:08 Pulse Ox 95 01/14/21 11:08
== END ==
LOC: PNWHC3 10:17
PROVIDERS: ATTEND Specialist
DX: G89.29 Other chronic pain (principal); M51.36 Other intervertebral disc degeneration, lumbar region; M51.26 Other intervertebral disc displacement, lumbar region; M47.816 Spondylosis without myelopathy or radiculopathy, lumbar region; F17.200 Nicotine dependence, unspecified, uncomplicated; Z79.891 Long term (current) use of opiate analgesic
CPT/HCPCS: 80307; G0482; G0463; 99212

== ENCOUNTER → 2021-04-01 | Outpatient (CLI) | payer OTHER ==
[2021-04-01 10:58] VITALS: BP 129/86; PULSE 67; RESP 18; TEMP 97.9
--- NOTE | 2021-04-01 12:20 | P.PN ---
Subjective Progress Note Date: 04/01/21 This is follow-up visit for this patient with a history of severe and chronic low back pain secondary to lumbar degenerative disc disease, lumbar spondylosis with facet arthropathy, And lumbar herniated disc disease, patient had interventional pain procedure done in the past and he reported that he had no benefit and he is not willing to have any surgical interventions The patient currently on MS Contin 60 mg twice a day and [place] 10/325 every 8 hours when necessary for pain Patient denies any side effect of the medication , patient denies any excessive drowsiness or sleepiness, patient denies any suicidal ideation, Patient reported that the current medication is helping to control the pain and improve the activity of daily livings, Patient denies any motor or sensory deficit, denies any change in the bowel movement or urination, patient denies any fever or night sweats. Patient here today for follow-up visit and medication refill, she reported increased intensity of the pain over the last few weeks, any activity aggravates his pain Physical examination -Constitutiona : Cooperative , not in acute distress . -HEENT : nech : supple , no Lymphadenopathy , normal thyroid size . eyes : no ptosis , no icterus, no photophobia . - neurologic : Cranial nerve II to XII intact , no focal neurological deffecit . -psychatric : alert , oriented X 3 , appropriate affect , intact judgment and insight . -Lymphatic : no Lymphadenopathy . - musculoskeltal : Lumber spine moter stegnth lower extremities ,thigh and legs 5/5 Right side , 5/5 Left side deep tendon reflexes : normal Knee Jerk , normal ankle Jerk positive lumber facet Loading Test Range of motion of the lumbar spine Flexion 30 degrees, extension 10 degrees strait leg raising test , positive at 30 degree Fabere test positive RT and positive LT . Sever tenderness over the Sacroiliac joint on the R and L sides Assessment and Plan: chronic low back pain secondary to lumbar degenerative disc disease , lumbar herniated disc disease, lumbar spondylosis with lumbar facet arthropathy . chronic and current use of high-risk medication (opioids) Patient denies any side effects of the current pain medication and the current treatment/medication helping the patient to do activity of daily living , Diagnoses, prognosis, treatment options, including but not limited to physical therapy, medication management, interventional therapies, and surgery, were discussed with the patient All the questions answered The narcotic consent was signed and patient agreed and understood the side effects and complications of opioid treatment. Patient signed the narcotic agreement, and was orally counseled, not to overuse, not to abuse, not to Divert , not tp sell pain medication, and to take it as prescribed only, Patient was counseled not to drive or operate heavy equipment while using narcotic medication, and advised not to use alcohol or any Illicit drugs while using the narcotis. understanding that lack of compliance with any of the above instructions, will likely to cause discharge from, the pain service, not to renew his narcotic prescriptions MAPS Reviwed and it was apropriate . UDS Reviewed ,and it was OK Medication managements= patient will be given prescription refills for MS Contin 60 mg twice a day dispense 60 with 1 refill and [place] 10/325 every 8 hours dispense 90 with 1 refill A follow-up in the pain clinic in 2 months Interventions= patient reports that he had no benefit from previous interventional pain procedure done in the past, he is not willing to have any procedure Referral= patient is not willing to have any surgical interventions Time with Patient: Less than 30 - PQRS measures = - Patient's medications are documented in the chart. -Tobacco use is positive, and counseling.Given. -Patient's has not received pneumococcal vaccine. -Advanced care planning discussed, patient not eligible. -Opiate contract signed. -Pain positive and follow-up visit/procedure is scheduled. -Patient's blood pressure measured [ 129/86] , and documented in the record ,and patient will follow up with the primary care. -Patient's weight was measured and body mass index [ ] within the normal limits and counseling was done. and patient instructed to follow-up with the primary care physician. -Patient was not identified as an unhealthy alcohol user Objective - Vital Signs Vital signs: Vital Signs Temp 97.9 F 04/01/21 10:56 Pulse 67 04/01/21 10:56 Resp 18 04/01/21 10:56 BP 129/86 04/01/21 10:56 Pulse Ox 98 04/01/21 10:56
== END ==
LOC: PNWHC3 10:13
PROVIDERS: ATTEND Specialist
DX: M51.36 Other intervertebral disc degeneration, lumbar region (principal); M47.816 Spondylosis without myelopathy or radiculopathy, lumbar region; G89.29 Other chronic pain; M51.26 Other intervertebral disc displacement, lumbar region; F17.200 Nicotine dependence, unspecified, uncomplicated; Z79.891 Long term (current) use of opiate analgesic
CPT/HCPCS: 99211

== ENCOUNTER → 2021-05-27 | Outpatient (CLI) | payer OTHER ==
--- NOTE | 2021-05-27 10:40 | P.PN ---
Subjective Progress Note Date: 05/27/21 Shabbir is a 61-year-old male presenting to clinic today for medication refill. He has a history of chronic low back pain, lumbar spondylosis and facet arthropathy without myelopathy. Prior to this visit he has been prescribed morphine sulfate 60 mg extended release 2 times a day. He is also been presc ribed [place] 10 mg every 8 hours as needed for pain. Recently he was advised that his insurance company would not pay for more than 90 mg morphine equivalent of the morphine sulfate. In the past this medication has been very helpful with his chronic pain. This allowed to perform his daily activities without interference from pain. At today's visit he is presenting with lower back pain that he describes as a burning, throbbing, stabbing, pressure like sensation. His pain is worse in the morning. Pain is increased with certain positions, bending, and lifting. Pain is made better with his medications, he, and rest. Without medications his pain is 10 out of 10 on a 0-to-10 scale. With his medications his pain as a 3 out of 10 at a 0-to-10 scale. His medication his functionality is improved which allows him to perform his daily activities such as maintaining his home and yard. He tried physical therapy and injections in the past but has optimally little benefit. He denies any bowel or bladder dysfunction, saddle anesthesia, any red flag symptoms. He denies any adverse effects or complications from his medication. Objective - Exam Physical Examinations : -Constitutiona : Cooperative , not in acute distress . -HEENT : nech : supple , no Lymphadenopathy , normal thyroid size . : eyes : no ptosis , no icterus, no photophobia . - neurologic : Cranial nerve II to XII intact , no focal neurological deffecit . -psychatric : alert , oriented X 3 , appropriate affect , intact judgment and insight . -Lymphatic : no Lymphadenopathy . - musculoskeltal : moter stegnth lower extremities ,thigh and legs 5/5 Right side , 5/5 Left side deep tendon reflexes : normal Knee Jerk , normal ankle Jerk lumber facet Loading Test =positive Right , positive Left Range of motion of the lumbar spine Flexion 30 degrees, extension 10 degrees strait leg raising test = positive at 20 degree Fabere test= positive Right , and positive LT . Sever tenderness over the Sacroiliac joint on the Right , and Left sides Gaenslen test= positive right ,and positive left . Seated flexion test= positive right ,and positive Left . Distraction test= positive bilaterally Sacroiliac compression test= positive bilaterally Assessment and Plan Assessment: Assessment and plan Assessment: chronic low back pain secondary to lumbar degenerative disc disease , lumbar herniated disc disease, lumbar spondylosis with lumbar facet arthropathy . chronic and current use of high-risk medication (opioids) Patient denies any side effects of the current pain medication and the current treatment/medication helping the patient to do activity of daily living , Diagnoses, prognosis, treatment options, including but not limited to physical therapy, medication management, interventional therapies, and surgery, were discussed with the patient All the questions answered The narcotic consent was signed and patient agreed and understood the side effects and complications of opioid treatment. Patient signed the narcotic agreement, and was orally counseled, not to overuse, not to abuse, not to Divert , not tp sell pain medication, and to take it as prescribed only, Patient was counseled not to drive or operate heavy equipment while using narcotic medication, and advised not to use alcohol or any Illicit drugs while using the narcotis. understanding that lack of compliance with any of the above instructions, will likely to cause discharge from, the pain service, not to renew his narcotic prescriptions MAPS Reviwed and it was apropriate . UDS Reviewed ,and it was OK Plan: Prescribed morphine sulfate extended release 60 mg 1 time in the morning #30 pills one refill Prescribed morphine sulfate extended release 30 mg 1 time in the evening #30 pills one refill Prescribed [place] 10 mg every 8 hours as needed #90 pills one refill Total MME: 120 If patient's pain control is not adequately covered with his current medication regimen, consider returning him back to his previous medications of morphine sulfate extended release 60 mg twice a day. - PQRS measures = - Patient's medications are documented in the chart. -Tobacco use is positive. Counseling refused -Patient's has not received pneumococcal vaccine. -Advanced care planning discussed, patient not eligible. -Opiate contract signed. -Pain positive and follow-up visit/procedure is scheduled. -Patient's blood pressure measured 132/98 , and documented in the record ,and patient will follow up with the primary care. -Patient's weight was measured and body mass index 24.4 within the normal limits and counseling was done. and patient instructed to follow-up with the primary care physician. -Patient was not identified as an unhealthy alcohol user Time with Patient: Less than 30
[2021-05-27 11:30] VITALS: BP 132/98; PULSE 84; RESP 18
== END ==
LOC: PNWHC3 09:39
PROVIDERS: ATTEND Student in an Organized Health Care Education/Training Program
DX: M51.36 Other intervertebral disc degeneration, lumbar region (principal); M51.26 Other intervertebral disc displacement, lumbar region; M47.816 Spondylosis without myelopathy or radiculopathy, lumbar region; G89.29 Other chronic pain; F17.200 Nicotine dependence, unspecified, uncomplicated; Z79.891 Long term (current) use of opiate analgesic
CPT/HCPCS: 99211

== ENCOUNTER → 2021-07-22 | Outpatient (CLI) | payer OTHER ==
[2021-07-22 10:42] VITALS: BP 146/84; PULSE 70; RESP 18; TEMP 95.5
--- NOTE | 2021-07-22 18:49 | P.PN ---
Subjective Progress Note Date: 07/22/21 Principal diagnosis: This is follow-up visit for this patient, a 61 yr old male with a history of severe and chronic lumbar disc protrusion, neuroforaminal stenoses, disc herniations, retrolisthesis and facet joint arthropathy throughout the spine presents today for medication refills. Lumbar MRI from 2018 was reviewed again with the patient. Pt admits to a 20 yr history of lumbar degenerative disc disease and facet arthropathy s/p trauma. Pain is dull & achy within the lumbar spine, but sharp and shooting towards the bilateral lower extremities. Pain intensity is 8 / 10. Pain is provoked by movement, sedentary lifestyle. Pain is alleviated with oral medications, injections, heat, chiropractics years ago and home based exercise routine. Pt has not participated in physical therapy in years due to it's ineffectiveness. Interventional pain procedures completed include lumbar medial branch block. Patient is currently on Mcneil 10/325mg, MS ER 60mg and MS ER 30mg. Patient denies any side effects of the medication(s), denies excessive drowsiness or sleepiness, denies suicidal ideation and reports that the current pain medication is helping to control the pain and improve activities of daily living. Patient denies any motor or sensory deficits. Patient denies any fever or night sweats, denies any change in the bowel movements or urination. Physical Examination: -Constitutional: Cooperative. Not in acute distress . -HEENT: Neck is supple. No lymphadenopathy. No thyromegaly. Normal thyroid size. Eyes: No ptosis , no icterus, no photophobia. ENT: No auditory deficits. Normal oropharynx. No Thrush. - Respiratory: Chest clear to auscultations bilaterally. No wheezing. No rhonchi. - Cardiovascular: Regular rate and rhythm. S1 / S2 , no S3 , no S4. - Gastrointestinal: Abdomen soft no tenderness. Bowel sounds positive in all four quadrants. No organomegaly. - Genitourinary: Deferred. - Neurologic: Cranial nerve II to XII intact. No focal neurological deficits. - Psychatric: Alert & oriented x 3. Matching mood & appropriate affect. Judgment and insight intact. - Lymphatic: No Lymphadenopathy. - Musculoskeltal: Cervical spine: Muscle bulk/ tone/ strength 5/5 in the bilateral upper extremiti es. Facet loading test positive. Lumbar spine: Motor bulk/ tone/ strength in the lower extremities , thigh and legs : 5/5 Deep tendon reflexes : Normal Knee Jerk. Normal Ankle Jerk . Lumbar Facet Loading Test positive Supine Straight Leg Raise: positive at 30 degree right side/ left side Gaenslen's Test positive Mahendra test: positive right side / left side Range of motion: flexion of the lumbar spine <60 degrees Range of motion: Extension of the lumbar spine <20 degrees Severe tenderness over the Sacroiliac joint: right side / left side IMAGING Lumbar MRI from 2018: T11-T12 disc bulge, T12-L1 disc bulge, L1-L2 Grade I retrolisthesis with BL neuroforaminal stenosis, L2-L3, Grade I retrolisthesis with L neuroforaminal stenosis, L3-L4 broadbased & L foraminal disc herniation with BL neuroforaminal stenosis, L4-L5 broadbased & L disc herniation with BL neuroforaminal stenosis, L5-S1 Grade I retrolisthesis with broadbased disc herniation with BL neuroforaminal stenosis. Facet arthropathy throughout the spine Assessment and plan: Chronic low back pain secondary to lumbar disc herniation, retrolistheses, multilevel neuroforaminal stenoses and facet arthropathy throughout the spine Urine collected for UDS Medications refilled: Mcneil 10/325mg #90 with one refill, MS ER 60mg #30 to take QAM prn with one refill & MS ER 30mg #30 to take QHS prn with one refill MRI of the Lumbar spine without contrast and MRI of the lumbar plexus was ordered Chronic and current use of high-risk medication (Opioids). The patient was counseled about risk of opioid use, psychological risk associated with opioids and was orally counseled to not overuse , divert or sell medications. Pt is to store medication in a safe location. The patient is counseled against driving while using narcotic medications and also not to use alcohol or any illicit recreational drugs. Patient verbalized understanding that the lack of compliance will result in failure to renew narcotic prescription(s) as well as possible discharge from the clinic Diagnoses, prognosis and treatment options including but not limited to physical therapy, surgical interventions, interventional therapies and medication management including narcotics and adjuvant medication were discussed. All patient questions answered MAPS reviewed and it was appropriate. I have spent 31 minutes on patient care today. The time was used to review the medical records including relevant urine studies and Prescription history (MAPs), review of the available imaging, evaluation and examination of the patient, coordination of care with the medical staff and if applicable referring physicians, as well as creation of the medical record Objective - Vital Signs Vital signs: Vital Signs Temp 95.5 F L 07/22/21 10:34 Pulse 70 07/22/21 10:34 Resp 18 07/22/21 10:34 BP 146/84 07/22/21 10:34 Pulse Ox 94 L 07/22/21 10:34 PQRS Measure Charge Sheet Mode of Arrival: Ambulatory - Pain Location Lower Back Non-Pharmacological Interventions: Heat, Inactivity, Stretching Pharmacological Interventions: Medication, PRN Medication PQRS Narrative: Smoking Status Current every day smoker Narcotic Agreement Date Signed 01/14/21 Blood Pressure 146/84 Pain Intensity [Lower Back] 3 Scale Used Numeric (1 - 10) Hx Alcohol Use (MH) No Home Medications: Ambulatory Orders QUEtiapine FUMARATE [SEROquel XR] 200 mg PO HS 10/13/14 Dextroamphetamine/Amphetamine [Adderall] 20 mg PO BID 05/27/16 buPROPion XL [Wellbutrin XL] 150 mg PO DAILY 08/22/19 Propranolol HCl [Propranolol HCl ER] 60 mg PO DAILY 07/23/20 HYDROcodone/APAP 10-325MG [Mcneil 10-325] 1 tab PO Q8HR PRN 30 Days #90 tab 04/01/21 Morphine Sulfate ER [Ms Contin] 60 mg PO Q12H 30 Days #60 tab 04/01/21
== END ==
LOC: PNWHC3 09:51
PROVIDERS: ATTEND Physician Assistant Medical
DX: M51.26 Other intervertebral disc displacement, lumbar region (principal); M43.16 Spondylolisthesis, lumbar region; M48.00 Spinal stenosis, site unspecified; G89.29 Other chronic pain; F17.200 Nicotine dependence, unspecified, uncomplicated
CPT/HCPCS: 80307; G0482; G0463; 99212

== ENCOUNTER → 2021-09-23 | Outpatient (CLI) | payer OTHER ==
[2021-09-23 10:17] VITALS: BP 132/80; PULSE 72; RESP 18; TEMP 97.6
--- NOTE | 2021-09-23 10:45 | P.PN ---
Subjective Progress Note Date: 09/23/21 Principal diagnosis: A 61 yr old male with a history of severe and chronic low back pain secondary to lumbar degenerative disc diseases, disc bulges, bilateral neuroforaminal stenoses, retrolisthesis and lumbar spondylosis with facet arthropathy presents today for medication refills. Pain is in the mid to lower back, 3 out of 10 in intensity, constant, pressure, throbbing, burning sensation which elevates to 8 out of 10 in intensity when patient is standing sitting or laying in 1 position for a period of one hour or more. No radiation of pain. Pain is alleviated with medications, heat, physical therapy in the past, home exercise stretching, massage therapy in the past, repositioning and rest. I discussed with patient that I am prescribing Narcan and discussed use during diminished level of consciousness or respiratory distress. Advised patient that he needs to be in proximity to others and half device on him at all times for administration if needed. Also discussed with patient that the medication needs to be reduced to a safer range to reduce incidence of opioid overdose but patient was resistant to the idea. Patient is currently on [place] 10/325 #90, MS ER 60 mg #30, MS ER 30 mg #30 Patient denies any side effects of the medication(s), denies excessive drowsiness or sleepiness, denies suicidal ideation and reports that the current pain medication is helping to control the pain and improve activities of daily living. Patient denies any motor or sensory deficits. Patient denies any fever or night sweats, denies any change in the bowel movements or urination. Physical Examination: -Constitutional: Cooperative. Not in acute distress . -HEENT: Neck is supple. No lymphadenopathy. No thyromegaly. Normal thyroid size. Eyes: No ptosis , no icterus, no photophobia. ENT: No auditory deficits. Normal oropharynx. No Thrush. - Respiratory: Chest clear to auscultations bilaterally. No wheezing. No rhonchi. - Cardiovascular: Regular rate and rhythm. S1 / S2 , no S3 , no S4. - Gastrointestinal: Abdomen soft no tenderness. Bowel sounds positive in all four quadrants. No organomegaly. - Genitourinary: Deferred. - Neurologic: Cranial nerve II to XII intact. No focal neurological deficits. - Psychatric: Alert & oriented x 3. Matching mood & appropriate affect. Judgment and insight intact. - Lymphatic: No Lymphadenopathy. - Musculoskeletal: Cervical spine: Muscle bulk/ tone/ strength in the bilateral upper extremities normal. Facet loading test cervical area positive. Thoracic spine: Mild paraspinal muscle tenderness to palpation over the bilateral T8-T12 Lumbar spine: Motor bulk/ tone/ strength lower extremities , thigh and legs : 5/5 Deep tendon reflexes : Normal Knee Jerk. Normal Ankle Jerk . Vertebral body tenderness to palpation over L1 through L5 Mild paraspinal muscle tenderness to palpation throughout lumbar spine Lumbar Facet Loading Test positive over bilateral L3 to L5 Straight Leg Raise: positive at 30 degrees right side/ left side Gaenslen's Test positive Sacral spine : Severe tenderness over the Sacroiliac joint: right side / left side Range of motion: Flexion of the lumbar spine <60 degrees Range of motion: Extension of the lumbar spine <20 degrees Gaenslen's Test positive Mahenrda test: positive right side / left side Imaging: MRI of the lumbar spine from 07/31/21 reviewed Assessment and plan: Chronic low back pain secondary to lumbar degenerative disc disease , lum bar spondylosis, disc bulges, retrolisthesis, neural foraminal stenoses with facet arthropathy without myelopathy Chronic and current use of high-risk medication (Opioids). The patient was counseled about risk of opioid use, psychological risk associated with opioids and was orally counseled to not overuse , divert or sell medications. Pt is to store medication in a safe location. The patient is counseled against driving while using narcotic medications and also not to use alcohol or any illicit recreational drugs. Patient verbalized understanding that the lack of compliance will result in failure to renew narcotic prescription(s) as well as possible discharge from the clinic Diagnoses, prognosis and treatment options including but not limited to physical therapy, surgical interventions, interventional therapies and medication management including narcotics and adjuvant medication were discussed. All patient questions answered MAPS reviewed and it was appropriate. UDS from July 2021 reviewed and was consistent Prescription refill for MS ER 30 mg #60 with 1 refill, [place] 10/325 mg #90 with 1 refill, nor can I am 2 mg injection when necessary diminished level consciousness or respiratory distress quantity 1 with 1 refill. I have spent 31 minutes on patient care today. Dr Rudd was available by phone for the evaluation of this patient. The time was used to review the medical records including relevant urine studies and Prescription history (MAPs), review of the available imaging, evaluation and examination of the patient, coordination of care with the medical staff and if applicable referring physicians, as well as creation of the medical record Objective - Vital Signs Vital signs: Vital Signs Temp 97.6 F 09/23/21 10:13 Pulse 72 09/23/21 10:13 Resp 18 09/23/21 10:13 BP 132/80 09/23/21 10:13 Pulse Ox 95 09/23/21 10:13 PQRS Measure Charge Sheet Mode of Arrival: Ambulatory - Pain Location Lower Back Non-Pharmacological Interventions: Heat, Home Exercise, Inactivity, Massage, Physical Therapy, Position/Reposition, Stretching Pharmacological Interventions: Block, Medication, PRN Medication, Scheduled Medication PQRS Narrative: Smoking Status Current every day smoker Narcotic Agreement Date Signed 01/14/21 Blood Pressure 132/80 Pain Intensity [Lower Back] 3 Scale Used Numeric (1 - 10) Hx Alcohol Use (MH) No Home Medications: Ambulatory Orders QUEtiapine FUMARATE [SEROquel XR] 200 mg PO HS 10/13/14 Dextroamphetamine/Amphetamine [Adderall] 20 mg PO BID 05/27/16 buPROPion XL [Wellbutrin XL] 150 mg PO DAILY 08/22/19 Propranolol HCl [Propranolol HCl ER] 60 mg PO DAILY 07/23/20 HYDROcodone/APAP 10-325MG [[place] 10-325] 1 tab PO Q8HR PRN 30 Days #90 tab 09/23/21 HYDROcodone/APAP 10-325MG [[place] 10-325] 1 tab PO Q8HR PRN 30 Days #90 tab 09/23/21 Morphine Sulfate ER [Ms Contin] 30 mg PO Q12H 30 Days #60 tab 09/23/21 Morphine Sulfate ER [Ms Contin] 30 mg PO Q12HR 30 Days #60 tab 09/23/21 Naloxone [Narcan] 2 mg IM ONCE PRN 60 Days #1 each 09/23/21
== END ==
LOC: PNWHC3 09:31
PROVIDERS: ATTEND Physician Assistant Medical
DX: M51.36 Other intervertebral disc degeneration, lumbar region (principal); M47.816 Spondylosis without myelopathy or radiculopathy, lumbar region; G89.29 Other chronic pain; F17.200 Nicotine dependence, unspecified, uncomplicated
CPT/HCPCS: 99211

== ENCOUNTER → 2021-11-18 | Outpatient (CLI) | payer OTHER ==
[2021-11-18 10:23] VITALS: BP 125/82; PULSE 78; RESP 18; TEMP 97.8
--- NOTE | 2021-11-18 10:34 | P.PN ---
Subjective Progress Note Date: 11/18/21 Principal diagnosis: A 61 yr old male with a history of severe and chronic low back pain secondary to lumbar degenerative disc diseases and lumbar spondylosis with facet arthropathy presents today for medication refills. Pain level is 4 out of 10 in intensity, localized in the mid to lower aspects of his lumbar spine, throbbing, burning, stabbing, pressure type sensation with radiation of pain in the lower extremities bilaterally. Pain is provoked by sitting or standing for periods of 20 minutes or more. Pain is alleviated with medications, topicals, heat, massage therapy which she is currently in, reclining and rest. Interventional pain procedures completed include facet blocks of the medial branches in 2014 Patient is currently on Gleason, [facility]. Patient denies any side effects of the medication(s), denies excessive drowsiness or sleepiness, denies suicidal ideation and reports that the current pain medication is helping to control the pain and improve activities of daily living. Patient denies any motor or sensory deficits. Patient denies any fever or night sweats, denies any change in the bowel movements or urination. Physical Examination: -Constitutional: Cooperative. Not in acute distress . -HEENT: Neck is supple. No lymphadenopathy. No thyromegaly. Normal thyroid size. Eyes: No ptosis , no icterus, no photophobia. ENT: No auditory deficits. Normal oropharynx. No Thrush. - Respiratory: Chest clear to auscultations bilaterally. No wheezing. No rhonchi. - Cardiovascular: Regular rate and rhythm. S1 / S2 , no S3 , no S4. - Gastrointestinal: Abdomen soft no tenderness. Bowel sounds positive in all four quadrants. No organomegaly. - Genitourinary: Deferred. - Neurologic: Cranial nerve II to XII intact. No focal neurological deficits. - Psychatric: Alert & oriented x 3. Matching mood & appropriate affect. Judgment and insight intact. - Lymphatic: No Lymphadenopathy. - Musculoskeletal: Cervical spine: Muscle bulk/ tone/ strength in the bilateral upper extremities normal. Facet loading test cervical area positive. Lumbar spine: Motor bulk/ tone/ strength lower extremities , thigh and legs : 5/5 Deep tendon reflexes : Normal Knee Jerk. Normal Ankle Jerk . Vertebral body tenderness to palpation over L3, L4, L5 Lumbar Facet Loading Test positive Straight Leg Raise: positive at 30 degrees right side/ left side Gaenslen's Test positive Sacral spine : Severe tenderness over the Sacroiliac joint: right side / left side Range of motion: Flexion of the lumbar spine <60 degrees Range of motion: Extension of the lumbar spine <20 degrees Gaenslen's Test positive Mahendra test: positive right side / left side Assessment and plan: Chronic low back pain secondary to lumbar degenerative disc disease , lumbar spondylosis with facet arthropathy without myelopathy Chronic and current use of high-risk medication (Opioids). The patient was counseled about risk of opioid use, psychological risk associated with opioids and was orally counseled to not overuse , divert or sell medications. Pt is to store medication in a safe location. The patient is counseled against driving while using narcotic medications and also not to use alcohol or any illicit recreational drugs. Patient verbalized understanding that the lack of compliance will result in failure to renew narcotic prescription(s) as well as possible discharge from the clinic Diagnoses, prognosis and treatment options including but not limited to physical therapy, surgical interventions, interventional therapies and medication management including narcotics and adjuvant medication were discussed. All patient questions answered MAPS reviewed and it was appropriate. UDS from 07/22/21 reviewed and consistent Prescription refill for MS 30mg #60 1 refill, [place] 10/325mg #90 w 1 refill I have spent 31 minutes on patient care today. Dr Rudd was available by phone for the evaluation of this patient. The time was used to review the medical records including relevant urine studies and Prescription history (MAPs), review of the available imaging, evaluation and examination of the patient, coordination of care with the medical staff and if applicable referring physicians, as well as creation of the medical record Objective - Vital Signs Vital signs: Vital Signs Temp 97.8 F 11/18/21 10:12 Pulse 78 11/18/21 10:12 Resp 18 11/18/21 10:12 BP 125/82 11/18/21 10:12 Pulse Ox 95 11/18/21 10:12 Intake & Output 11/17/21 11/18/21 11/18/21 18:59 06:59 18:59 Weight 79.379 kg PQRS Measure Charge Sheet Mode of Arrival: Ambulatory - Pain Location Bilateral Medial Back Non-Pharmacological Interventions: Heat, Inactivity Pharmacological Interventions: Scheduled Medication, Topical Medication PQRS Narrative: Smoking Status Current every day smoker Narcotic Agreement Date Signed 01/14/21 Blood Pressure 125/82 Pain Intensity [Bilateral 4 Medial Back] Scale Used Numeric (1 - 10) Hx Alcohol Use (MH) No Home Medications: Ambulatory Orders QUEtiapine FUMARATE [SEROquel XR] 200 mg PO HS 10/13/14 Dextroamphetamine/Amphetamine [Adderall] 20 mg PO BID 05/27/16 buPROPion XL [Wellbutrin XL] 150 mg PO DAILY 08/22/19 Propranolol HCl [Propranolol HCl ER] 60 mg PO DAILY 07/23/20 HYDROcodone/APAP 10-325MG [G[place]ason 10-325] 1 tab PO Q8HR PRN 30 Days #90 tab 09/23/21 Morphine Sulfate ER [Ms Contin] 30 mg PO Q12HR 30 Days #60 tab 09/23/21 Naloxone [Narcan] 2 mg IM ONCE PRN 60 Days #1 each 09/23/21 HYDROcodone/APAP 10-325MG [G[place] 10-325] 1 tab PO Q8HR PRN 30 Days #90 tab 10/04/21 Morphine Sulfate ER [Ms Contin] 30 mg PO Q12HR 30 Days #60 tab 10/04/21 Naloxone HCl [Kloxxado] 8 mg NASAL ONCE PRN 30 Days #2 each 10/04/21 HYDROcodone/APAP 10-325MG [G[place]ason 10-325] 1 tab PO Q8HR PRN 30 Days #90 tab 11/18/21 HYDROcodone/APAP 10-325MG [G[place] 10-325] 1 tab PO Q8HR PRN 30 Days #90 tab 11/18/21 Morphine Sulfate ER [Ms Contin] 30 mg PO Q12H 30 Days #60 tab 11/18/21 Morphine Sulfate ER [Ms Contin] 30 mg PO Q12H 30 Days #60 tab 11/18/21
== END ==
LOC: PNWHC3 09:43
PROVIDERS: ATTEND Specialist
DX: M51.36 Other intervertebral disc degeneration, lumbar region (principal); M47.816 Spondylosis without myelopathy or radiculopathy, lumbar region; G89.29 Other chronic pain; Z79.891 Long term (current) use of opiate analgesic; F17.200 Nicotine dependence, unspecified, uncomplicated
CPT/HCPCS: 99211

== ENCOUNTER → 2022-01-27 | Outpatient (CLI) | payer OTHER ==
[2022-01-27 10:50] VITALS: BP 133/85; PULSE 69; RESP 18; TEMP 98
--- NOTE | 2022-01-27 10:52 | P.PAINPG ---
PQRS Measure Charge Sheet Comment: A 61 yr old male with a history of severe and chronic low back pain secondary to lumbar degenerative disc diseases and lumbar spondylosis with facet arthropathy presents today for medication refills. Pain level is currently at 3/10 in intensity, constant, dull/ achy in the lower aspects of his lumbar spine without radiation of pain. Pain is provoked by standing & sitting for approximately 30 min or more. Pain is alleviated with heat, medications ([place], [place] ER), topicals, laying supine and rest. Patient is currently on [place] 10/325 #90 and [place] ER 30mg #60 Patient denies any side effects of the medication(s), denies excessive drowsiness or sleepiness, denies suicidal ideation and reports that the current pain medication is helping to control the pain and improve activities of daily living. Patient denies any motor or sensory deficits. Patient denies any fever or night sweats, denies any change in the bowel movements or urination. Physical Examination: -Constitutional: Cooperative. Not in acute distress . - Neurologic: Cranial nerve II to XII intact. No focal neurological deficits. - Psychatric: Alert & oriented x 3. Matching mood & appropriate affect. Judgment and insight intact. - Musculoskeletal: Cervical spine: Muscle bulk/ tone/ strength in the bilateral upper extremities normal Vertebral body tenderness to palpation over Spurling test positive Distraction test positive Facet loading test positive Thoracic spine Muscle bulk / tone/ strength in the bilateral paraspinal muscles normal Vertebral body tender to palpation over Facet loading test positive Lumbar spine: Motor bulk/ tone/ strength lower extremities , thigh and legs : 5/5 Deep tendon reflexes : Normal Knee Jerk. Normal Ankle Jerk . Vertebral body tenderness to palpation over L4, L5 Lumbar Facet Loading Test positive Straight Leg Raise: positive at 30 degrees right side/ left side Gaenslen's Test positive Sacral spine : Severe tenderness over the Sacroiliac joint: right side / left side Range of motion: Flexion of the lumbar spine <60 degrees Range of motion: Extension of the lumbar spine <20 degrees Gaenslen's Test positive Carlos Alberto's Test positive Mahendra test: positive right side / left side Thigh Thrust Test Sacral Thrust Test Assessment and plan: Chronic low back pain secondary to lumbar degenerative disc disease , lumbar spondylosis with facet arthropathy without myelopathy Chronic and current use of high-risk medication (Opioids). The patient was counseled about risk of opioid use, psychological risk associated with opioids and was orally counseled to not overuse , divert or sell medications. Pt is to store medication in a safe location. The patient is counseled against driving while using narcotic medications and also not to use alcohol or any illicit recreational drugs. Patient verbalized understanding that the lack of compliance will result in failure to renew narcotic prescription(s) as well as possible discharge from the clinic Diagnoses, prognosis and treatment options including but not limited to physical therapy, surgical interventions, interventional therapies and medication management including narcotics and adjuvant medication were discussed. All patient questions answered MAPS reviewed and it was appropriate. UDS collected today 01/27/22 Narcotic agreement renewed today 01/27/22 Prescription refill for [place] 10/325 #90, [place] ER 30mg #60 w 1 refill I have spent less than 30 minutes on patient care today. Dr Rudd was available by phone for the evaluation of this patient. The time was used to review the medical records including relevant urine studies and Prescription history (MAPs), review of the available imaging, evaluation and examination of the patient, coordination of care with the medical staff and if applicable referring physicians, as well as creation of the medical record PQRS Narrative: Smoking Status Current every day smoker Narcotic Agreement Date Signed 01/14/21 Hx Alcohol Use (MH) No Home Medications: Ambulatory Orders QUEtiapine FUMARATE [SEROquel XR] 200 mg PO HS 10/13/14 Dextroamphetamine/Amphetamine [Adderall] 20 mg PO BID 05/27/16 buPROPion XL [Wellbutrin XL] 150 mg PO DAILY 08/22/19 Propranolol HCl [Propranolol HCl ER] 60 mg PO DAILY 07/23/20 Naloxone [Narcan] 2 mg IM ONCE PRN 60 Days #1 each 09/23/21 Naloxone HCl [Kloxxado] 8 mg NASAL ONCE PRN 30 Days #2 each 10/04/21 HYDROcodone/APAP 10-325MG [[place] 10-325] 1 tab PO Q8HR PRN 30 Days #90 tab 11/18/21 HYDROcodone/APAP 10-325MG [[place] 10-325] 1 tab PO Q8HR PRN 30 Days #90 tab 11/18/21 Morphine Sulfate ER [Ms Contin] 30 mg PO Q12H 30 Days #60 tab 11/18/21 Morphine Sulfate ER [Ms Contin] 30 mg PO Q12H 30 Days #60 tab 11/18/21 HYDROcodone/APAP 10-325MG [[place] 10-325] 1 tab PO Q8HR PRN 30 Days #90 tab 01/27/22 HYDROcodone/APAP 10-325MG [[place] 10-325] 1 tab PO Q8HR PRN 30 Days #90 tab 01/27/22 Morphine Sulfate ER [Ms Contin] 30 mg PO Q12HR 30 Days #60 tab 01/27/22 Morphine Sulfate ER [Ms Contin] 30 mg PO Q12HR 30 Days #60 tab 01/27/22 Controlled Substance Measures - Controlled Substance Measures Is patient prescribed a controlled substance at discharge?: Yes When asked, does pt state using other controlled substances?: Yes If prescribed controlled substance>3 days was MAPS reviewed?: Yes If Rx opioid, was Start Talking consent form obtained?: Yes Was information provided regarding opioid addiction?: Yes
== END ==
LOC: PNWHC3 10:13
PROVIDERS: ATTEND Specialist
DX: M51.36 Other intervertebral disc degeneration, lumbar region (principal); M47.816 Spondylosis without myelopathy or radiculopathy, lumbar region; G89.29 Other chronic pain; Z79.891 Long term (current) use of opiate analgesic; Z51.81 Encounter for therapeutic drug level monitoring; F17.200 Nicotine dependence, unspecified, uncomplicated
CPT/HCPCS: 80307; G0482; G0463; 99212

== ENCOUNTER → 2022-03-26 | Outpatient (CLI) | payer OTHER ==
[2022-03-26 10:12] VITALS: BP 114/80; PULSE 69; RESP 18; TEMP 97.9
--- NOTE | 2022-03-26 10:20 | P.PN ---
Subjective Progress Note Date: 03/26/22 This is 61 yr old male with a history of severe and chronic low back pain secondary to lumbar degenerative disc diseases and lumbar spondylosis with facet arthropathy presents today for medication refills. Pain level is currently at 3/10 in intensity, constant, dull/ achy in the lower aspects of his lumbar spine without radiation of pain. Pain is provoked by standing & sitting for approximately 30 min or more. Pain is alleviated with heat, medications ([place], [place] ER), topicals, laying supine and rest. Patient is currently on [place] 10/325 #90 ,and [place] ER 30mg #60 Patient denies any side effects of the medication(s), denies excessive drowsiness or sleepiness, denies suicidal ideation and reports that the current pain medication is helping to control the pain and improve activities of daily living. Patient denies any motor or sensory deficits. Patient denies any fever or night sweats, denies any change in the bowel movements or urination. Physical Examination: -Constitutional: Cooperative. Not in acute distress . - Neurologic: Cranial nerve II to XII intact. No focal neurological deficits. - Psychatric: Alert & oriented x 3. Matching mood & appropriate affect. Judgment and insight intact. - Musculoskeletal: Cervical spine: Muscle bulk/ tone/ strength in the bilateral upper extremities normal Vertebral body tenderness to palpation over Spurling test positive Distraction test positive Facet loading test positive Thoracic spine Muscle bulk / tone/ strength in the bilateral paraspinal muscles normal Vertebral body tender to palpation over Facet loading test positive Lumbar spine: Motor bulk/ tone/ strength lower extremities , thigh and legs : 5/5 Deep tendon reflexes : Normal Knee Jerk. Normal Ankle Jerk . Vertebral body tenderness to palpation over L4, L5 Lumbar Facet Loading Test positive Straight Leg Raise: positive at 30 degrees right side/ left side Gaenslen's Test positive Assessment and plan: Chronic low back pain secondary to lumbar degenerative disc disease , lumbar spondylosis with facet arthropathy without myelopathy Chronic and current use of high-risk medication (Opioids). The patient was counseled about risk of opioid use, psychological risk associated with opioids and was orally counseled to not overuse , divert or sell medications. Pt is to store medication in a safe location. The patient is counseled against driving while using narcotic medications and also not to use alcohol or any illicit recreational drugs. Patient verbalized understanding that the lack of compliance will result in failure to renew narcotic prescription(s) as well as possible discharge from the clinic Diagnoses, prognosis and treatment options including but not limited to physical therapy, surgical interventions, interventional therapies and medication management including narcotics and adjuvant medication were discussed. All patient questions answered MAPS reviewed and it was appropriate. UDS reviewed and it was appropriate Narcotic agreement OK Prescription refill for [place] 10/325 #90, [place] ER 30mg #60 w 1 refil Objective - Vital Signs Vital signs: Vital Signs Temp 97.9 F 03/26/22 10:03 Pulse 69 03/26/22 10:03 Resp 18 03/26/22 10:03 BP 114/80 03/26/22 10:03 Pulse Ox 95 03/26/22 10:03 FiO2 Intake & Output 03/25/22 03/26/22 03/26/22 18:59 06:59 18:59 Weight 77.111 kg
== END ==
LOC: PNWHC3 09:44
PROVIDERS: ATTEND Specialist
DX: M51.36 Other intervertebral disc degeneration, lumbar region (principal); M47.816 Spondylosis without myelopathy or radiculopathy, lumbar region; G89.29 Other chronic pain; Z79.891 Long term (current) use of opiate analgesic; F17.200 Nicotine dependence, unspecified, uncomplicated
CPT/HCPCS: 99211

== ENCOUNTER → 2022-05-21 | Outpatient (CLI) | payer OTHER ==
[2022-05-21 10:15] VITALS: BP 142/88; PULSE 71; RESP 18; TEMP 98
--- NOTE | 2022-05-21 14:00 | P.PAINPG ---
PQRS Measure Charge Sheet Comment: A 62 yr old male with a history of severe and chronic low back pain secondary to lumbar degenerative disc diseases and lumbar spondylosis with facet arthropathy without myelopathy presents today for medication refills. Pain level is currently at 4/10 in intensity, constant, localized in the lumbar spine, t hrobbing in character without radiation. Pain is provoked by PT years ago, walking for periods of 10 min or more. Pain is alleviated with medications, heat, topicals w little use, laying on his side, repositioning and rest. Patient is currently on [place]/325mg #90, [place] ER 30mg #60 Patient denies any side effects of the medication(s), denies excessive drowsiness or sleepiness, denies suicidal ideation and reports that the current pain medication is helping to control the pain and improve activities of daily living. Patient denies any motor or sensory deficits. Patient denies any fever or night sweats, denies any change in the bowel movements or urination. Physical Examination: -Constitutional: Cooperative. Not in acute distress . - Neurologic: Cranial nerve II to XII intact. No focal neurological deficits. - Psychatric: Alert & oriented x 3. Matching mood & appropriate affect. Judgment and insight intact. - Musculoskeletal: Cervical spine: Muscle bulk/ tone/ strength in the bilateral upper extremities normal Vertebral body tenderness to palpation over Spurling test positive Distraction test positive Facet loading test positive Thoracic spine Muscle bulk / tone/ strength in the bilateral paraspinal muscles normal Vertebral body tender to palpation over Facet loading test positive Lumbar spine: Motor bulk/ tone/ strength lower extremities , thigh and legs : 5/5 Deep tendon reflexes : Normal Knee Jerk. Normal Ankle Jerk . Vertebral body tenderness to palpation over L4, L5 Lumbar Facet Loading Test positive Straight Leg Raise: positive at 30 degrees right side/ left side Gaenslen's Test positive Sacral spine : Severe tenderness over the Sacroiliac joint: right side / left side Range of motion: Flexion of the lumbar spine <60 degrees Range of motion: Extension of the lumbar spine <20 degrees Gaenslen's Test positive Carlos Alberto's Test positive Mahendra test: positive right side / left side Thigh Thrust Test Sacral Thrust Test Assessment and plan: Chronic low back pain secondary to lumbar degenerative disc disease , lumbar spondylosis with facet arthropathy without myelopathy Chronic and current use of high-risk medication (Opioids). The patient was counseled about risk of opioid use, psychological risk associated with opioids and was orally counseled to not overuse , divert or sell medications. Pt is to store medication in a safe location. The patient is counseled against driving while using narcotic medications and also not to use alcohol or any illicit recreational drugs. Patient verbalized understanding that the lack of compliance will result in failure to renew narcotic prescription(s) as well as possible discharge from the clinic Diagnoses, prognosis and treatment options including but not limited to physical therapy, surgical interventions, interventional therapies and medication management including narcotics and adjuvant medication were discussed. All patient questions answered MAPS reviewed and it was appropriate. Prescription refill for [place] 10/325mg #90, [place] ER 30mg #60 w 1 RF I have spent less than 30 minutes on patient care today. Dr Rudd was available by phone for the evaluation of this patient. The time was used to review the medical records including relevant urine studies and Prescription history (MAPs), review of the available imaging, evaluation and examination of the patient, coordination of care with the medical staff and if applicable referring physicians, as well as creation of the medical record - Pain Location Bilateral Lower Back Non-Pharmacological Interventions: Heat, Inactivity Pharmacological Interventions: Epidural, Scheduled Medication, Topical Medication PQRS Narrative: Smoking Status Current every day smoker Narcotic Agreement Date Signed 01/27/22 Hx Alcohol Use (MH) No Home Medications: Ambulatory Orders QUEtiapine FUMARATE [SEROquel XR] 200 mg PO HS 10/13/14 Dextroamphetamine/Amphetamine [Adderall] 20 mg PO BID 05/27/16 buPROPion XL [Wellbutrin XL] 150 mg PO DAILY 08/22/19 Propranolol HCl [Propranolol HCl ER] 60 mg PO DAILY 07/23/20 Naloxone [Narcan] 2 mg IM ONCE PRN 60 Days #1 each 09/23/21 Naloxone HCl [Kloxxado] 8 mg NASAL ONCE PRN 30 Days #2 each 10/04/21 HYDROcodone/APAP 10-325MG [[place] 10-325] 1 tab PO Q8HR PRN 30 Days #90 tab 01/27/22 HYDROcodone/APAP 10-325MG [[place] 10-325] 1 tab PO Q8HR PRN 30 Days #90 tab 01/27/22 Morphine Sulfate ER [Ms Contin] 30 mg PO Q12HR 30 Days #60 tab 01/27/22 Morphine Sulfate ER [Ms Contin] 30 mg PO Q12HR 30 Days #60 tab 01/27/22 HYDROcodone/APAP 10-325MG [[place] 10-325] 1 tab PO Q8HR PRN 30 Days #90 tab 03/26/22 HYDROcodone/APAP 10-325MG [[place] 10-325] 1 tab PO Q8HR PRN 30 Days #90 tab 03/26/22 Morphine Sulfate ER [Ms Contin] 30 mg PO Q12H 30 Days #60 tab 03/26/22 Morphine Sulfate ER [Ms Contin] 30 mg PO Q12H 30 Days #60 tab 03/26/22 Controlled Substance Measures - Controlled Substance Measures Is patient prescribed a controlled substance at discharge?: Yes When asked, does pt state using other controlled substances?: Yes If prescribed controlled substance>3 days was MAPS reviewed?: Yes If Rx opioid, was Start Talking consent form obtained?: Yes Was information provided regarding opioid addiction?: Yes
== END ==
LOC: PNWHC3 09:30
PROVIDERS: ATTEND Specialist
DX: M47.816 Spondylosis without myelopathy or radiculopathy, lumbar region (principal); M51.36 Other intervertebral disc degeneration, lumbar region; G89.29 Other chronic pain; Z79.891 Long term (current) use of opiate analgesic; F17.200 Nicotine dependence, unspecified, uncomplicated
CPT/HCPCS: 99211

== ENCOUNTER → 2022-07-16 | Outpatient (CLI) | payer OTHER ==
[2022-07-16 11:47] VITALS: BP 127/87; PULSE 83; RESP 18; TEMP 98.1
--- NOTE | 2022-07-16 15:26 | P.PN ---
Subjective Progress Note Date: 07/16/22 This is 62 yr old male with a history of severe and chronic low back pain secondary to lumbar degenerative disc diseases and lumbar spondylosis with facet arthropathy presents today for medication refills. Pain level is currently at 3/10 in intensity, constant, dull/ achy in the lower aspects of his lumbar spine without radiation of pain. Pain is provoked by standing & sitting for approximately 30 min or more. Pain is alleviated with heat, medications ([place], [place] ER), topicals, laying supine and rest. Patient is currently on [place] 10/325 #90 ,and [place] ER 30mg #60 Patient denies any side effects of the medication(s), denies excessive drowsiness or sleepiness, denies suicidal ideation and reports that the current pain medication is helping to control the pain and improve activities of daily living. Patient denies any motor or sensory deficits. Patient denies any fever or night sweats, denies any change in the bowel movements or urination. Physical Examination: -Constitutional: Cooperative. Not in acute distress . - Neurologic: Cranial nerve II to XII intact. No focal neurological deficits. - Psychatric: Alert & oriented x 3. Matching mood & appropriate affect. Judgment and insight intact. - Musculoskeletal: Cervical spine: Muscle bulk/ tone/ strength in the bilateral upper extremities normal Vertebral body tenderness to palpation over Spurling test positive Distraction test positive Facet loading test positive Thoracic spine Muscle bulk / tone/ strength in the bilateral paraspinal muscles normal Vertebral body tender to palpation over Facet loading test positive Lumbar spine: Motor bulk/ tone/ strength lower extremities , thigh and legs : 5/5 Deep tendon reflexes : Normal Knee Jerk. Normal Ankle Jerk . Vertebral body tenderness to palpation over L4, L5 Lumbar Facet Loading Test positive Straight Leg Raise: positive at 30 degrees right side/ left side Gaenslen's Test positive Assessment and plan: Chronic low back pain secondary to lumbar degenerative disc disease , lumbar spondylosis with facet arthropathy without myelopathy Chronic and current use of high-risk medication (Opioids). The patient was counseled about risk of opioid use, psychological risk associated with opioids and was orally counseled to not overuse , divert or sell medications. Pt is to store medication in a safe location. The patient is counseled against driving while using narcotic medications and also not to use alcohol or any illicit recreational drugs. Patient verbalized understanding that the lack of compliance will result in failure to renew narcotic prescription(s) as well as possible discharge from the clinic Diagnoses, prognosis and treatment options including but not limited to physical therapy, surgical interventions, interventional therapies and medication management including narcotics and adjuvant medication were discussed. All patient questions answered MAPS reviewed and it was appropriate. UDS reviewed and it was appropriate Narcotic agreement OK Prescription refill for [place] 10/325 #90, [place] ER 30mg #60 w 1 refil Objective - Vital Signs Vital signs: Vital Signs Temp 98.1 F 07/16/22 11:22 Pulse 83 07/16/22 11:22 Resp 18 07/16/22 11:22 BP 127/87 07/16/22 11:22 Pulse Ox 94 L 07/16/22 11:22 FiO2 Intake & Output 07/15/22 07/16/22 07/16/22 18:59 06:59 18:59 Weight 77.111 kg
== END ==
LOC: PNWHC3 08:04
PROVIDERS: ATTEND Specialist
DX: M47.816 Spondylosis without myelopathy or radiculopathy, lumbar region (principal); M51.36 Other intervertebral disc degeneration, lumbar region; Z79.891 Long term (current) use of opiate analgesic; F17.200 Nicotine dependence, unspecified, uncomplicated
CPT/HCPCS: 99211

== ENCOUNTER → 2022-11-05 | Outpatient (CLI) | payer OTHER ==
[2022-11-05 11:11] VITALS: BP 120/80; PULSE 69; RESP 18; TEMP 98
--- NOTE | 2022-11-05 14:51 | P.PAINPG ---
PQRS Measure Charge Sheet Comment: A 62 yr old male with a history of severe and chronic LBP secondary to DDD and spondylosis with facet arthropathy without myelopathy presents today for medication refills. Pain level is provoked at 10 /10 in intensity, constant, localized in the lumbar spine, burning in character w/o shooting pain Pain is p rovoked by standing/ sitting/ bending. Pain is alleviated with PT in 2020, chiropractic treatments years ago, heat, meds, topical, reclining and rest. Patient is currently on [place] ER 30mg #60, [place] 10/325mg #90 Patient denies any side effects of the medication(s), denies excessive drowsiness or sleepiness, denies suicidal ideation and reports that the current pain medication is helping to control the pain and improve activities of daily living. Patient denies any motor or sensory deficits. Patient denies any fever or night sweats, denies any change in the bowel movements or urination. Physical Examination: -Constitutional: Cooperative. Not in acute distress . - Neurologic: Cranial nerve II to XII intact. No focal neurological deficits. - Psychatric: Alert & oriented x 3. Matching mood & appropriate affect. Judgment and insight intact. - Musculoskeletal: Cervical spine: Muscle bulk/ tone/ strength in the bilateral upper extremities normal Vertebral body tenderness to palpation over Spurling test positive Distraction test positive Facet loading test positive TTP Thoracic spine Muscle bulk / tone/ strength in the bilateral paraspinal muscles normal Vertebral body tender to palpation over Facet loading test positive TTP Lumbar spine: Motor bulk/ tone/ strength lower extremities , thigh and legs : 5/5 Deep tendon reflexes : Normal Knee Jerk. Normal Ankle Jerk . Vertebral body tenderness to palpation over Lumbar Facet Loading Test positive Straight Leg Raise: positive at 30 degrees right side/ left side Gaenslen's Test positive Sacral spine : Severe tenderness over the Sacroiliac joint: right side / left side Range of motion: Flexion of the lumbar spine <60 degrees Range of motion: Extension of the lumbar spine <20 degrees Gaenslen's Test positive R / L Mahendra test: positive right side / left side Thigh Thrust Test positive R / L Sacral Thrust Test positive R/ L Assessment and plan: Chronic LBP secondary to lumbar DDD, spondylosis with facet arthropathy without myelopathy Chronic and current use of high-risk medication (Opioids). The patient was counseled about risk of opioid use, psychological risk associated with opioids and was orally counseled to not overuse , divert or sell medications. Pt is to store medication in a safe location. The patient is counseled against driving while using narcotic medications and also not to use alcohol or any illicit recreational drugs. Patient verbalized understanding that the lack of compliance will result in failure to renew narcotic prescription(s) as well as possible discharge from the clinic Diagnoses, prognosis and treatment options including but not limited to physical therapy, surgical interventions, interventional therapies and medication management including narcotics and adjuvant medication were discussed. All patient questions answered MAPS reviewed and it was appropriate. UDS from 09/15/22 reviewed and consistent Prescription refill for [place] ER 30mg #60, [place] 10/325mg #90 w 1 RF. I have spent less than 30 minutes on patient care today. Dr Rudd was available by phone for the evaluation of this patient. The time was used to review the medical records including relevant urine studies and Prescription history (MAPs), review of the available imaging, evaluation and examination of the patient, coordination of care with the medical staff and if applicable referring physicians, as well as creation of the medical record PQRS Narrative: Smoking Status Current every day smoker Narcotic Agreement Date Signed 01/27/22 Hx Alcohol Use (MH) No Home Medications: Ambulatory Orders QUEtiapine FUMARATE [SEROquel XR] 200 mg PO HS 10/13/14 Dextroamphetamine/Amphetamine [Adderall] 20 mg PO BID 05/27/16 buPROPion XL [Wellbutrin XL] 150 mg PO DAILY 08/22/19 Propranolol HCl [Propranolol HCl ER] 60 mg PO DAILY 07/23/20 Naloxone [Narcan] 2 mg IM ONCE PRN 60 Days #1 each 09/23/21 Naloxone HCl [Kloxxado] 8 mg NASAL ONCE PRN 30 Days #2 each 10/04/21 HYDROcodone/APAP 10-325MG [[place] 10-325] 1 tab PO Q8HR PRN 30 Days #90 tab 09/10/22 HYDROcodone/APAP 10-325MG [[place] 10-325] 1 tab PO Q8HR PRN 30 Days #90 tab 09/10/22 Morphine Sulfate ER [Ms Contin] 30 mg PO Q12H 30 Days #60 tab 09/10/22 Morphine Sulfate ER [Ms Contin] 30 mg PO Q12H 30 Days #60 tab 09/10/22 HYDROcodone/APAP 10-325MG [[place] 10-325] 1 tab PO Q8HR PRN 30 Days #90 tab HYDROcodone/APAP 10-325MG [[place] 10-325] 1 tab PO Q8HR PRN 30 Days #90 tab 11/05/22 Morphine Sulfate ER [Ms Contin] 30 mg PO Q12HR 30 Days #60 tab 11/05/22 Morphine Sulfate ER [Ms Contin] 30 mg PO Q12HR 30 Days #60 tab 11/05/22 Controlled Substance Measures - Controlled Substance Measures Is patient prescribed a controlled substance at discharge?: Yes When asked, does pt state using other controlled substances?: Yes If prescribed controlled substance>3 days was MAPS reviewed?: Yes
== END ==
LOC: PNWHC3 09:29
PROVIDERS: ATTEND Specialist
DX: M51.36 Other intervertebral disc degeneration, lumbar region (principal); M47.816 Spondylosis without myelopathy or radiculopathy, lumbar region; G89.29 Other chronic pain; Z79.891 Long term (current) use of opiate analgesic; F17.200 Nicotine dependence, unspecified, uncomplicated
CPT/HCPCS: 99211

== ENCOUNTER → 2022-12-31 | Outpatient (CLI) | payer OTHER ==
[2022-12-31 12:23] VITALS: BP 128/89; PULSE 74; RESP 18; TEMP 97.9
--- NOTE | 2022-12-31 15:04 | P.PAINPG ---
PQRS Measure Charge Sheet Comment: A 62 yr old male with a history of severe and chronic LBP secondary to DDD and spondylosis with facet arthropathy without myelopathy presents today for medication refills. Pain level is provoked at 10 /10 in intensity, constant, localized in the lumbar spine, burning in character w/o shooting pain. Pain is provoked by standing/ sitting/ bending. Pain is alleviated with PT in 2020, chiropractic treatments years ago, heat, ice, meds, topical, reclining and rest. Patient is currently on MS ER 30mg #60, [place] 10/325mg #90 Patient denies any side effects of the medication(s), denies excessive drowsiness or sleepiness, denies suicidal ideation and reports that the current pain medication is helping to control the pain and improve activities of daily living. Patient denies any motor or sensory deficits. Patient denies any fever or night sweats, denies any change in the bowel movements or urination. Physical Examination: -Constitutional: Cooperative. Not in acute distress . - Neurologic: Cranial nerve II to XII intact. No focal neurological deficits. - Psychatric: Alert & oriented x 3. Matching mood & appropriate affect. Judgment and insight intact. - Musculoskeletal: Cervical spine: Muscle bulk/ tone/ strength in the bilateral upper extremities normal Vertebral body tenderness to palpation over Spurling test positive Distraction test positive Facet loading test positive TTP Thoracic spine Muscle bulk / tone/ strength in the bilateral paraspinal muscles normal Vertebral body tender to palpation over Facet loading test positive TTP Lumbar spine: Motor bulk/ tone/ strength lower extremities , thigh and legs : 5/5 Deep tendon reflexes : Normal Knee Jerk. Normal Ankle Jerk . Vertebral body tenderness to palpation over Lumbar Facet Loading Test positive Straight Leg Raise: positive at 30 degrees right side/ left side Gaenslen's Test positive Sacral spine : Severe tenderness over the Sacroiliac joint: right side / left side Range of motion: Flexion of the lumbar spine <60 degrees Range of motion: Extension of the lumbar spine <20 degrees Gaenslen's Test positive R / L Mahendra test: positive right side / left side Thigh Thrust Test positive R / L Sacral Thrust Test positive R/ L Assessment and plan: Chronic LBP secondary to lumbar DDD, spondylosis with facet arthropathy without myelopathy Chronic and current use of high-risk medication (Opioids). The patient was counseled about risk of opioid use, psychological risk associated with opioids and was orally counseled to not overuse , divert or sell medications. Pt is to store medication in a safe location. The patient is counseled against driving while using narcotic medications and also not to use alcohol or any illicit recreational drugs. Patient verbalized understanding that the lack of compliance will result in failure to renew narcotic prescription(s) as well as possible discharge from the clinic Diagnoses, prognosis and treatment options including but not limited to physical therapy, surgical interventions, interventional therapies and medication management including narcotics and adjuvant medication were discussed. All patient questions answered MAPS reviewed and it was appropriate. UDS from 09/15/22 reviewed and consistent. Prescription refill for MS ER 30mg #60, [place] 10/325mg #90 w 1 RF. Partial fill medication will be cancelled for a full script. I have spent less than 30 minutes on patient care today. Dr Rudd was availa ble by phone for the evaluation of this patient. The time was used to review the medical records including relevant urine studies and Prescription history (MAPs), review of the available imaging, evaluation and examination of the patient, coordination of care with the medical staff and if applicable referring physicians, as well as creation of the medical record PQRS Narrative: Smoking Status Current every day smoker Narcotic Agreement Date Signed 01/27/22 Hx Alcohol Use (MH) No Home Medications: Ambulatory Orders QUEtiapine FUMARATE [SEROquel XR] 200 mg PO HS 10/13/14 Dextroamphetamine/Amphetamine [Adderall] 20 mg PO BID 05/27/16 buPROPion XL [Wellbutrin XL] 150 mg PO DAILY 08/22/19 Propranolol HCl [Propranolol HCl ER] 60 mg PO DAILY 07/23/20 Naloxone [Narcan] 2 mg IM ONCE PRN 60 Days #1 each 09/23/21 Naloxone HCl [Kloxxado] 8 mg NASAL ONCE PRN 30 Days #2 each 10/04/21 HYDROcodone/APAP 10-325MG [[place] 10-325] 1 tab PO Q8HR PRN 30 Days #90 tab 11/05/22 HYDROcodone/APAP 10-325MG [[place] 10-325] 1 tab PO Q8HR PRN 30 Days #90 tab 11/05/22 Morphine Sulfate ER [Ms Contin] 30 mg PO Q12HR 30 Days #60 tab 11/05/22 Morphine Sulfate ER [Ms Contin] 30 mg PO Q12HR 30 Days #60 tab 11/05/22 Morphine Sulfate ER [Ms Contin] 30 mg PO BID 16 Days #31 tab 12/22/22 HYDROcodone/APAP 10-325MG [[place] 10-325] 1 tab PO Q8HR PRN 30 Days #90 tab 12/31/22 HYDROcodone/APAP 10-325MG [[place] 10-325] 1 tab PO Q8HR PRN 30 Days #90 tab 12/31/22 Morphine Sulfate ER [Ms Contin] 30 mg PO Q12H 30 Days #60 tab 12/31/22 Morphine Sulfate ER [Ms Contin] 30 mg PO Q12H 30 Days #60 tab 12/31/22 Controlled Substance Measures - Controlled Substance Measures Is patient prescribed a controlled substance at discharge?: Yes When asked, does pt state using other controlled substances?: No If prescribed controlled substance>3 days was MAPS reviewed?: Yes
== END ==
LOC: PNWHC3 10:22
PROVIDERS: ATTEND Specialist
DX: M51.36 Other intervertebral disc degeneration, lumbar region (principal); M47.816 Spondylosis without myelopathy or radiculopathy, lumbar region; G89.29 Other chronic pain; F17.200 Nicotine dependence, unspecified, uncomplicated; Z79.891 Long term (current) use of opiate analgesic
CPT/HCPCS: 99211

== ENCOUNTER → 2023-02-25 | Outpatient (CLI) | payer OTHER ==
[2023-02-25 10:06] VITALS: BP 125/81; PULSE 56; RESP 15; TEMP 97.6
--- NOTE | 2023-02-25 13:11 | P.PAINPG ---
PQRS Measure Charge Sheet Comment: A 63 yr old male with a history of severe and chronic LBP x > 5 yrs secondary to DDD and spondylosis with facet arthropathy without myelopathy presents today for medication refills. Pain level is provoked at 4 /10 in intensity, constant, localized in the lumbar spine, burning in character w/o shooting pain. Pain is provoked by standing/ sitting/ bending. Pain is alleviated with PT in 2020, chiropractic treatments years ago, heat, ice, meds, topical, reclining and rest. Patient is currently on MS ER 30mg #60, [place] 10/325mg #90 Patient denies any side effects of the medication(s), denies excessive drowsiness or sleepiness, denies suicidal ideation and reports that the current pain medication is helping to control the pain and improve activities of daily living. Patient denies any motor or sensory deficits. Patient denies any fever or night sweats, denies any change in the bowel movements or urination. Physical Examination: -Constitutional: Cooperative. Not in acute distress . - Neurologic: Cranial nerve II to XII intact. No focal neurological deficits. - Psychatric: Alert & oriented x 3. Matching mood & appropriate affect. Judgment and insight intact. - Musculoskeletal: Cervical spine: Muscle bulk/ tone/ strength in the bilateral upper extremities normal Vertebral body tenderness to palpation over Spurling test positive Distraction test positive Facet loading test positive TTP Thoracic spine Muscle bulk / tone/ strength in the bilateral paraspinal muscles normal Vertebral body tender to palpation over Facet loading test positive TTP Lumbar spine: Motor bulk/ tone/ strength lower extremities , thigh and legs : 5/5 Deep tendon reflexes : Normal Knee Jerk. Normal Ankle Jerk . Vertebral body tenderness to palpation over Lumbar Facet Loading Test positive Straight Leg Raise: positive at 30 degrees right side/ left side Gaenslen's Test positive Sacral spine : Severe tenderness over the Sacroiliac joint: right side / left side Range of motion: Flexion of the lumbar spine <60 degrees Range of motion: Extension of the lumbar spine <20 degrees Gaenslen's Test positive R / L Mahendra test: positive right side / left side Thigh Thrust Test positive R / L Sacral Thrust Test positive R/ L Assessment and plan: Chronic LBP secondary to lumbar DDD, spondylosis with facet arthropathy without myelopathy Chronic and current use of high-risk medication (Opioids). The patient was counseled about risk of opioid use, psychological risk associated with opioids and was orally counseled to not overuse , divert or sell medications. Pt is to store medication in a safe location. The patient is counseled against driving while using narcotic medications and also not to use alcohol or any illicit recreational drugs. Patient verbalized understanding that the lack of compliance will result in failure to renew narcotic prescription(s) as well as possible discharge from the clinic Diagnoses, prognosis and treatment options including but not limited to physical therapy, surgical interventions, interventional therapies and medication management including narcotics and adjuvant medication were discussed. All patient questions answered MAPS reviewed and it was appropriate. UDS collected today 02/25/23. Prescription refill for MS ER 30mg #60, [place] 10/325mg #90 w 1 RF. I have spent less than 30 minutes on patient care today. Dr Rudd was available by phone for the evaluation of this patient. The time was used to review the medical records including relevant urine studies and Prescription history (MAPs), review of the available imaging, evaluation and examination of the patient, coordination of care with the medical staff and if applicable referring physicians, as well as creation of the medical record - Pain Location Bilateral Lower Back Non-Pharmacological Interventions: Heat, Inactivity Pharmacological Interventions: Epidural, Scheduled Medication PQRS Narrative: Smoking Status Current every day smoker Narcotic Agreement Date Signed 01/27/22 Hx Alcohol Use (MH) No Home Medications: Ambulatory Orders QUEtiapine FUMARATE [SEROquel XR] 200 mg PO HS 10/13/14 Dextroamphetamine/Amphetamine [Adderall] 20 mg PO BID 05/27/16 buPROPion XL [Wellbutrin XL] 150 mg PO DAILY 08/22/19 Propranolol HCl [Propranolol HCl ER] 60 mg PO DAILY 07/23/20 Naloxone [Narcan] 2 mg IM ONCE PRN 60 Days #1 each 09/23/21 Naloxone HCl [Kloxxado] 8 mg NASAL ONCE PRN 30 Days #2 each 10/04/21 HYDROcodone/APAP 10-325MG [[place] 10-325] 1 tab PO Q8HR PRN 30 Days #90 tab 11/05/22 HYDROcodone/APAP 10-325MG [[place] 10-325] 1 tab PO Q8HR PRN 30 Days #90 tab 11/05/22 Morphine Sulfate ER [Ms Contin] 30 mg PO Q12HR 30 Days #60 tab 11/05/22 Morphine Sulfate ER [Ms Contin] 30 mg PO Q12HR 30 Days #60 tab 11/05/22 Morphine Sulfate ER [Ms Contin] 30 mg PO Q12H 30 Days #60 tab 12/31/22 HYDROcodone/APAP 10-325MG [[place] 10-325] 1 tab PO Q8HR PRN 30 Days #90 tab 02/25/23 HYDROcodone/APAP 10-325MG [[place] 10-325] 1 tab PO Q8HR PRN 30 Days #90 tab 02/25/23 Morphine Sulfate ER [Ms Contin] 30 mg PO BID 16 Days #31 tab 02/25/23 Morphine Sulfate ER [Ms Contin] 30 mg PO Q12H 30 Days #60 tab 02/25/23 Controlled Substance Measures - Controlled Substance Measures Is patient prescribed a controlled substance at discharge?: Yes When asked, does pt state using other controlled substances?: Yes If prescribed controlled substance>3 days was MAPS reviewed?: Yes
== END ==
LOC: PNWHC3 09:33
PROVIDERS: ATTEND Specialist
DX: M51.36 Other intervertebral disc degeneration, lumbar region (principal); M47.816 Spondylosis without myelopathy or radiculopathy, lumbar region; G89.29 Other chronic pain; F17.200 Nicotine dependence, unspecified, uncomplicated; Z79.891 Long term (current) use of opiate analgesic
CPT/HCPCS: 99211

== ENCOUNTER → 2023-04-22 | Outpatient (CLI) | payer OTHER ==
[2023-04-22 09:58] VITALS: BP 152/83; PULSE 74; RESP 16; TEMP 98
--- NOTE | 2023-04-22 14:41 | P.PAINPG ---
PQRS Measure Charge Sheet Comment: A 63 yr old male with a history of severe and chronic LBP x > 5 yrs secondary to DDD and spondylosis with facet arthropathy without myelopathy presents today for medication refills. Pain level is provoked at 4 /10 in intensity, constant, localized in the mid to lower lumbar spine, throbbing in character w/o shooting pain. Pain is provoked by standing/ sitting/ bending. Pain is alleviated with PT in 2020, chiropractic treatments years ago, heat, ice, meds, topical, reclining and rest. Patient is currently on MS ER 30mg #60, [place] 10/325mg #90 Patient denies any side effects of the medication(s), denies excessive drowsiness or sleepiness, denies suicidal ideation and reports that the current pain medication is helping to control the pain and improve activities of daily living. Patient denies any motor or sensory deficits. Patient denies any fever or night sweats, denies any change in the bowel movements or urination. Physical Examination: -Constitutional: Cooperative. Not in acute distress . - Neurologic: Cranial nerve II to XII intact. No focal neurological deficits. - Psychatric: Alert & oriented x 3. Matching mood & appropriate affect. Judgment and insight intact. - Musculoskeletal: Cervical spine: Muscle bulk/ tone/ strength in the bilateral upper extremities normal Vertebral body tenderness to palpation over Spurling test positive Distraction test positive Facet loading test positive TTP Thoracic spine Muscle bulk / tone/ strength in the bilateral paraspinal muscles normal Vertebral body tender to palpation over Facet loading test positive TTP Lumbar spine: Motor bulk/ tone/ strength lower extremities , thigh and legs : 5/5 Deep tendon reflexes : Normal Knee Jerk. Normal Ankle Jerk . Vertebral body tenderness to palpation over Lumbar Facet Loading Test positive Straight Leg Raise: positive at 30 degrees right side/ left side Gaenslen's Test positive Sacral spine : Severe tenderness over the Sacroiliac joint: right side / left side Range of motion: Flexion of the lumbar spine <60 degrees Range of motion: Extension of the lumbar spine <20 degrees Gaenslen's Test positive R / L Mahendra test: positive right side / left side Thigh Thrust Test positive R / L Sacral Thrust Test positive R/ L Assessment and plan: Chronic LBP secondary to lumbar DDD, spondylosis with facet arthropathy without myelopathy Chronic and current use of high-risk medication (Opioids). The patient was counseled about risk of opioid use, psychological risk associated with opioids and was orally counseled to not overuse , divert or sell medications. Pt is to store medication in a safe location. The patient is counseled against driving while using narcotic medications and also not to use alcohol or any illicit recreational drugs. Patient verbalized understanding that the lack of compliance will result in failure to renew narcotic prescription(s) as well as possible discharge from the clinic Diagnoses, prognosis and treatment options including but not limited to physical therapy, surgical interventions, interventional therapies and medication management including narcotics and adjuvant medication were discussed. All patient questions answered . Opiate/ narcotic agreement updated 04/22/23. MAPS reviewed and it was appropriate. UDS from 02/25/23 reviewed and consistent. Prescription refill for MS ER 30mg #60, [place] 10/325mg #90 w 1 RF. I have spent less than 30 minutes on patient care today. Dr Rudd was available by phone for the evaluation of this patient. The time was used to review the medical records including relevant urine studies and Prescription history (MAPs), review of the available imaging, evaluation and examination of the patient, coordination of care with the medical staff and if applicable referring physicians, as well as creation of the medical record PQRS Narrative: Smoking Status Current every day smoker Narcotic Agreement Date Signed 01/27/22 Hx Alcohol Use (MH) No Home Medications: Ambulatory Orders QUEtiapine FUMARATE [SEROquel XR] 200 mg PO HS 10/13/14 Dextroamphetamine/Amphetamine [Adderall] 20 mg PO BID 05/27/16 buPROPion XL [Wellbutrin XL] 150 mg PO DAILY 08/22/19 Propranolol HCl [Propranolol HCl ER] 60 mg PO DAILY 07/23/20 Naloxone [Narcan] 2 mg IM ONCE PRN 60 Days #1 each 09/23/21 Naloxone HCl [Kloxxado] 8 mg NASAL ONCE PRN 30 Days #2 each 10/04/21 HYDROcodone/APAP 10-325MG [[place] 10-325] 1 tab PO Q8HR PRN 30 Days #90 tab 11/05/22 HYDROcodone/APAP 10-325MG [[place] 10-325] 1 tab PO Q8HR PRN 30 Days #90 tab 11/05/22 Morphine Sulfate ER [Ms Contin] 30 mg PO Q12HR 30 Days #60 tab 11/05/22 Morphine Sulfate ER [Ms Contin] 30 mg PO Q12H 30 Days #60 tab 12/31/22 HYDROcodone/APAP 10-325MG [[place] 10-325] 1 tab PO Q8HR PRN 30 Days #90 tab 02/25/23 HYDROcodone/APAP 10-325MG [[place] 10-325] 1 tab PO Q8HR PRN 30 Days #90 tab 04/22/23 HYDROcodone/APAP 10-325MG [[place] 10-325] 1 tab PO Q8HR PRN 30 Days #90 tab 04/22/23 Morphine Sulfate ER [Ms Contin] 30 mg PO Q12H 30 Days #60 tab 04/22/23 Morphine Sulfate ER [Ms Contin] 30 mg PO Q12HR 30 Days #60 tab 04/22/23 Controlled Substance Measures - Controlled Substance Measures Is patient prescribed a controlled substance at discharge?: Yes When asked, does pt state using other controlled substances?: Yes If prescribed controlled substance>3 days was MAPS reviewed?: Yes If Rx opioid, was Start Talking consent form obtained?: Yes Was information provided regarding opioid addiction?: Yes
== END ==
LOC: PNWHC3 09:22
PROVIDERS: ATTEND Specialist
DX: M51.36 Other intervertebral disc degeneration, lumbar region (principal); M47.816 Spondylosis without myelopathy or radiculopathy, lumbar region; G89.29 Other chronic pain; F17.200 Nicotine dependence, unspecified, uncomplicated; Z79.891 Long term (current) use of opiate analgesic
CPT/HCPCS: 99211

== ENCOUNTER → 2023-06-24 | Outpatient (CLI) | payer OTHER ==
--- NOTE | 2023-06-24 10:18 | P.PAINPG ---
PQRS Measure Charge Sheet Comment: A 63 yr old male with a history of severe and chronic LBP x > 5 yrs secondary to DDD and spondylosis with facet arthropathy without myelopathy presents today for medication refills. Pain level is provoked at 6/10 in intensity, constant, localized in the mid to lower lumbar spine, predominantly axial, throbbing in character w occasional shooting pain laterally across the spine. Pain is provoked by standing/ sitting/ bending. Pain is alleviated with PT in 2020, chiropractic treatments years ago, heat, ice, meds, topical, reclining and rest. Patient is currently on MS ER 30mg #60, [place] 10/325mg #90 Patient denies any side effects of the medication(s), denies excessive drowsiness or sleepiness, denies suicidal ideation and reports that the current pain medication is helping to control the pain and improve activities of daily living. Patient denies any motor or sensory deficits. Patient denies any fever or night sweats, denies any change in the bowel movements or urination. Physical Examination: -Constitutional: Cooperative. Not in acute distress . - Neurologic: Cranial nerve II to XII intact. No focal neurological deficits. - Psychatric: Alert & oriented x 3. Matching mood & appropriate affect. Judgment and insight intact. - Musculoskeletal: Cervical spine: Muscle bulk/ tone/ strength in the bilateral upper extremities normal Vertebral body tenderness to palpation over Spurling test positive Distraction test positive Facet loading test positive TTP Thoracic spine Muscle bulk / tone/ strength in the bilateral paraspinal muscles normal Vertebral body tender to palpation over Facet loading test positive TTP Lumbar spine: Motor bulk/ tone/ strength lower extremities , thigh and legs : 5/5 Deep tendon reflexes : Normal Knee Jerk. Normal Ankle Jerk . Vertebral body tenderness to palpation over Lumbar Facet Loading Test positive Straight Leg Raise: positive at 30 degrees right side/ left side Gaenslen's Test positive Sacral spine : Severe tenderness over the Sacroiliac joint: right side / left side Range of motion: Flexion of the lumbar spine <60 degrees Range of motion: Extension of the lumbar spine <20 degrees Gaenslen's Test positive R / L Mahendra test: positive right side / left side Thigh Thrust Test positive R / L Sacral Thrust Test positive R/ L Assessment and plan: Chronic LBP secondary to lumbar DDD, spondylosis with facet arthropathy without myelopathy Chronic and current use of high-risk medication (Opioids). The patient was counseled about risk of opioid use, psychological risk associated with opioids and was orally counseled to not overuse , divert or sell medications. Pt is to store medication in a safe location. The patient is counseled against driving while using narcotic medications and also not to use alcohol or any illicit recreational drugs. Patient verbalized understanding that the lack of compliance will result in failure to renew narcotic prescription(s) as well as possible discharge from the clinic Diagnoses, prognosis and treatment options including but not limited to physical therapy, surgical interventions, interventional therapies and medication management including narcotics and adjuvant medication were discussed. All patient questions answered . Opiate/ narcotic agreement updated 04/22/23. MAPS reviewed and it was appropriate. UDS from 02/25/23 reviewed and consistent. Prescription refill for MS ER 30mg #60, [place] 10/325mg #90 w 1 RF. I have spent less than 30 minutes on patient care today. Dr Rudd was available by phone for the evaluation of this patient. The time was used to review the medical records including relevant urine studies and Prescription history (MAPs), review of the available imaging, evaluation and examination of the patient, coordination of care with the medical staff and if applicable referring physicians, as well as creation of the medical record PQRS Narrative: Smoking Status Current every day smoker Narcotic Agreement Date Signed 04/22/23 Hx Alcohol Use (MH) No Home Medications: Ambulatory Orders QUEtiapine FUMARATE [SEROquel XR] 200 mg PO HS 10/13/14 Dextroamphetamine/Amphetamine [Adderall] 20 mg PO BID 05/27/16 buPROPion XL [Wellbutrin XL] 150 mg PO DAILY 08/22/19 Propranolol HCl [Propranolol HCl ER] 60 mg PO DAILY 07/23/20 Naloxone [Narcan] 2 mg IM ONCE PRN 60 Days #1 each 09/23/21 Naloxone HCl [Kloxxado] 8 mg NASAL ONCE PRN 30 Days #2 each 10/04/21 HYDROcodone/APAP 10-325MG [[place] 10-325] 1 tab PO Q8HR PRN 30 Days #90 tab 11/05/22 HYDROcodone/APAP 10-325MG [[place] 10-325] 1 tab PO Q8HR PRN 30 Days #90 tab 11/05/22 Morphine Sulfate ER [Ms Contin] 30 mg PO Q12HR 30 Days #60 tab 11/05/22 HYDROcodone/APAP 10-325MG [[place] 10-325] 1 tab PO Q8HR PRN 30 Days #90 tab 02/25/23 Morphine Sulfate ER [Ms Contin] 30 mg PO Q12HR 30 Days #60 tab 04/22/23 HYDROcodone/APAP 10-325MG [[place] 10-325] 1 tab PO Q8HR PRN 30 Days #90 tab 06/24/23 HYDROcodone/APAP 10-325MG [[place] 10-325] 1 tab PO Q8HR PRN 30 Days #90 tab 06/24/23 Morphine Sulfate ER [Ms Contin] 30 mg PO Q12H 30 Days #60 tab 06/24/23 Morphine Sulfate ER [Ms Contin] 30 mg PO Q12H 30 Days #60 tab 06/24/23 Controlled Substance Measures - Controlled Substance Measures Is patient prescribed a controlled substance at discharge?: Yes When asked, does pt state using other controlled substances?: Yes If prescribed controlled substance>3 days was MAPS reviewed?: Yes
[2023-06-24 10:41] VITALS: BP 101/60; PULSE 72; RESP 15; TEMP 98.2
== END ==
LOC: PNWHC3 09:38
PROVIDERS: ATTEND Specialist
DX: M51.36 Other intervertebral disc degeneration, lumbar region (principal); M47.816 Spondylosis without myelopathy or radiculopathy, lumbar region; F17.200 Nicotine dependence, unspecified, uncomplicated

== ENCOUNTER → 2023-08-19 | Outpatient (CLI) | payer OTHER ==
[2023-08-19 10:01] VITALS: BP 143/88; PULSE 77; RESP 16; TEMP 97.1
--- NOTE | 2023-08-19 14:42 | P.PAINPG ---
PQRS Measure Charge Sheet Comment: A 63 yr old male with a history of severe and chronic LBP x > 5 yrs secondary to DDD and spondylosis with facet arthropathy without myelopathy presents today for medication refills. Pain level is provoked at 5/10 in intensity, constant, localized in the mid to lower lumbar spine, predominantly axial, throbbing in character w occasional shooting pain laterally across the spine. Pain is provoked by standing/ sitting/ bending. Pain is alleviated with PT in 2020, chiropractic treatments years ago, heat, ice, meds, topical, reclining and rest. Patient is currently on MS ER 30mg #60, [place] 10/325mg #90 Patient denies any side effects of the medication(s), denies excessive drowsiness or sleepiness, denies suicidal ideation and reports that the current pain medication is helping to control the pain and improve activities of daily living. Patient denies any motor or sensory deficits. Patient denies any fever or night sweats, denies any change in the bowel movements or urination. Physical Examination: -Constitutional: Cooperative. Not in acute distress . - Neurologic: Cranial nerve II to XII intact. No focal neurological deficits. - Psychatric: Alert & oriented x 3. Matching mood & appropriate affect. Judgment and insight intact. - Musculoskeletal: Cervical spine: Muscle bulk/ tone/ strength in the bilateral upper extremities normal Vertebral body tenderness to palpation over Spurling test positive Distraction test positive Facet loading test positive TTP Thoracic spine Muscle bulk / tone/ strength in the bilateral paraspinal muscles normal Vertebral body tender to palpation over Facet loading test positive TTP Lumbar spine: Motor bulk/ tone/ strength lower extremities , thigh and legs : 5/5 Deep tendon reflexes : Normal Knee Jerk. Normal Ankle Jerk . Vertebral body tenderness to palpation over Lumbar Facet Loading Test positive Straight Leg Raise: positive at 30 degrees right side/ left side Gaenslen's Test positive Sacral spine : Severe tenderness over the Sacroiliac joint: right side / left side Range of motion: Flexion of the lumbar spine <60 degrees Range of motion: Extension of the lumbar spine <20 degrees Gaenslen's Test positive R / L Mahendra test: positive right side / left side Thigh Thrust Test positive R / L Sacral Thrust Test positive R/ L Assessment and plan: Chronic LBP secondary to lumbar DDD, spondylosis with facet arthropathy without myelopathy Chronic and current use of high-risk medication (Opioids). The patient was counseled about risk of opioid use, psychological risk associated with opioids and was orally counseled to not overuse , divert or sell medications. Pt is to store medication in a safe location. The patient is counseled against driving while using narcotic medications and also not to use alcohol or any illicit recreational drugs. Patient verbalized understanding that the lack of compliance will result in failure to renew narcotic prescription(s) as well as possible discharge from the clinic Diagnoses, prognosis and treatment options including but not limited to physical therapy, surgical interventions, interventional therapies and medication management including narcotics and adjuvant medication were discussed. All patient questions answered . Opiate/ narcotic agreement updated 04/22/23. MAPS reviewed and it was appropriate. UDS from 02/25/23 reviewed and consistent. Prescription refill for MS ER 30mg #60, [place] 10/325mg #90 w 1 RF. I have spent less than 30 minutes on patient care today. Dr Rudd was available by phone for the evaluation of this patient. The time was used to review the medical records including relevant urine studies and Prescription history (MAPs), review of the available imaging, evaluation and examination of the patient, coordination of care with the medical staff and if applicable referring physicians, as well as creation of the medical record - Pain Location Bilateral Lower Back Non-Pharmacological Interventions: Heat Pharmacological Interventions: PRN Medication, Scheduled Medication, Topical Medication PQRS Narrative: Smoking Status Current every day smoker Narcotic Agreement Date Signed 04/22/23 Hx Alcohol Use (MH) No Home Medications: Ambulatory Orders QUEtiapine FUMARATE [SEROquel XR] 200 mg PO HS 10/13/14 Dextroamphetamine/Amphetamine [Adderall] 20 mg PO BID 05/27/16 buPROPion XL [Wellbutrin XL] 150 mg PO DAILY 08/22/19 Propranolol HCl [Propranolol HCl ER] 60 mg PO DAILY 07/23/20 Naloxone [Narcan] 2 mg IM ONCE PRN 60 Days #1 each 09/23/21 Naloxone HCl [Kloxxado] 8 mg NASAL ONCE PRN 30 Days #2 each 10/04/21 HYDROcodone/APAP 10-325MG [[place] 10-325] 1 tab PO Q8HR PRN 30 Days #90 tab 11/05/22 HYDROcodone/APAP 10-325MG [[place] 10-325] 1 tab PO Q8HR PRN 30 Days #90 tab 11/05/22 Morphine Sulfate ER [Ms Contin] 30 mg PO Q12HR 30 Days #60 tab 11/05/22 HYDROcodone/APAP 10-325MG [[place] 10-325] 1 tab PO Q8HR PRN 30 Days #90 tab 02/25/23 Morphine Sulfate ER [Ms Contin] 30 mg PO Q12HR 30 Days #60 tab 07/23/23 HYDROcodone/APAP 10-325MG [[place] 10-325] 1 tab PO Q8HR PRN 30 Days #90 tab 08/19/23 HYDROcodone/APAP 10-325MG [[place] 10-325] 1 tab PO Q8HR PRN 30 Days #90 tab 08/19/23 Morphine Sulfate ER [Ms Contin] 30 mg PO Q12H 30 Days #60 tab 08/19/23 Morphine Sulfate ER [Ms Contin] 30 mg PO Q12H 30 Days #60 tab 08/19/23 Controlled Substance Measures - Controlled Substance Measures Is patient prescribed a controlled substance at discharge?: Yes When asked, does pt state using other controlled substances?: Yes If prescribed controlled substance>3 days was MAPS reviewed?: Yes
== END ==
LOC: PNWHC3 09:27
PROVIDERS: ATTEND Anesthesiology
DX: M47.816 Spondylosis without myelopathy or radiculopathy, lumbar region (principal); M51.36 Other intervertebral disc degeneration, lumbar region; F17.200 Nicotine dependence, unspecified, uncomplicated; M47.812 Spondylosis without myelopathy or radiculopathy, cervical region; Z79.891 Long term (current) use of opiate analgesic
CPT/HCPCS: 99211

== ENCOUNTER → 2023-10-14 | Outpatient (CLI) | payer OTHER ==
[2023-10-14 13:24] VITALS: BP 128/86; PULSE 58; RESP 16; TEMP 98.1
--- NOTE | 2023-10-14 14:36 | P.PAINPG ---
PQRS Measure Charge Sheet Comment: A 63 yr old male with a history of severe and chronic LBP x > 5 yrs secondary to DDD and spondylosis with facet arthropathy without myelopathy presents today for medication refills. Pain level is provoked at 4 /10 in intensity, constant, localized in the mid to lower lumbar spine, predominantly axial, throbbing in character w occasional shooting pain laterally across the spine and the BLEs. Pain is provoked by standing/ sitting/ bending. Pain is alleviated with PT in 2020, chiropractic treatments years ago, heat, ice, meds, topical, reclining and rest. Patient is currently on MS ER 30mg #60, [place] 10/325mg #90 Patient denies any side effects of the medication(s), denies excessive drowsiness or sleepiness, denies suicidal ideation and reports that the current pain medication is helping to control the pain and improve activities of daily living. Patient denies any motor or sensory deficits. Patient denies any fever or night sweats, denies any change in the bowel movements or urination. Physical Examination: -Constitutional: Cooperative. Not in acute distress . - Neurologic: Cranial nerve II to XII intact. No focal neurological deficits. - Psychatric: Alert & oriented x 3. Matching mood & appropriate affect. Judgment and insight intact. - Musculoskeletal: Cervical spine: Muscle bulk/ tone/ strength in the bilateral upper extremities normal Vertebral body tenderness to palpation over Spurling test positive Distraction test positive Facet loading test positive TTP Thoracic spine Muscle bulk / tone/ strength in the bilateral paraspinal muscles normal Vertebral body tender to palpation over Facet loading test positive TTP Lumbar spine: Motor bulk/ tone/ strength lower extremities , thigh and legs : 5/5 Deep tendon reflexes : Normal Knee Jerk. Normal Ankle Jerk . Vertebral body tenderness to palpation over Lumbar Facet Loading Test positive Straight Leg Raise: positive at 30 degrees right side/ left side Gaenslen's Test positive Sacral spine : Severe tenderness over the Sacroiliac joint: right side / left side Range of motion: Flexion of the lumbar spine <60 degrees Range of motion: Extension of the lumbar spine <20 degrees Gaenslen's Test positive R / L Mahendra test: positive right side / left side Thigh Thrust Test positive R / L Sacral Thrust Test positive R/ L Assessment and plan: Chronic LBP secondary to lumbar DDD, spondylosis with facet arthropathy without myelopathy Chronic and current use of high-risk medication (Opioids). The patient was counseled about risk of opioid use, psychological risk associated with opioids and was orally counseled to not overuse , divert or sell medications. Pt is to store medication in a safe location. The patient is counseled against driving while using narcotic medications and also not to use alcohol or any illicit recreational drugs. Patient verbalized understanding that the lack of compliance will result in failure to renew narcotic prescription(s) as well as possible discharge from the clinic Diagnoses, prognosis and treatment options including but not limited to physical therapy, surgical interventions, interventional therapies and medication management including narcotics and adjuvant medication were discussed. All patient questions answered . Opiate/ narcotic agreement updated 04/22/23. MAPS reviewed and it was appropriate. UDS collected 10/14/23. Prescription refill for MS ER 30mg #60, [place] 10/325mg #90 w 1 RF. I have spent less than 30 minutes on patient care today. Dr Rudd was available by phone for the evaluation of this patient. The time was used to review the medical records including relevant urine studies and Prescription history (MAPs), review of the available imaging, evaluation and examination of the patient, coordination of care with the medical staff and if applicable referring physicians, as well as creation of the medical record PQRS Narrative: Smoking Status Current every day smoker Narcotic Agreement Date Signed 04/22/23 Hx Alcohol Use (MH) No Home Medications: Ambulatory Orders QUEtiapine FUMARATE [SEROquel XR] 200 mg PO HS 10/13/14 Dextroamphetamine/Amphetamine [Adderall] 20 mg PO BID 05/27/16 buPROPion XL [Wellbutrin XL] 150 mg PO DAILY 08/22/19 Propranolol HCl [Propranolol HCl ER] 60 mg PO DAILY 07/23/20 Naloxone [Narcan] 2 mg IM ONCE PRN 60 Days #1 each 09/23/21 Naloxone HCl [Kloxxado] 8 mg NASAL ONCE PRN 30 Days #2 each 10/04/21 HYDROcodone/APAP 10-325MG [[place] 10-325] 1 tab PO Q8HR PRN 30 Days #90 tab 10/14/23 HYDROcodone/APAP 10-325MG [[place] 10-325] 1 tab PO Q8HR PRN 30 Days #90 tab 10/14/23 Morphine Sulfate ER [Ms Contin] 30 mg PO Q12H 30 Days #60 tab 10/14/23 Morphine Sulfate ER [Ms Contin] 30 mg PO Q12HR 30 Days #60 tab 10/14/23 Controlled Substance Measures - Controlled Substance Measures Is patient prescribed a controlled substance at discharge?: Yes When asked, does pt state using other controlled substances?: Yes If prescribed controlled substance>3 days was MAPS reviewed?: Yes
== END ==
LOC: PNWHC3 08:51
PROVIDERS: ATTEND Specialist
DX: M47.816 Spondylosis without myelopathy or radiculopathy, lumbar region (principal); M51.36 Other intervertebral disc degeneration, lumbar region; F17.200 Nicotine dependence, unspecified, uncomplicated; Z79.891 Long term (current) use of opiate analgesic
CPT/HCPCS: 80307; G0463; 99211; 99212

== ENCOUNTER → 2023-12-09 | Outpatient (CLI) | payer OTHER ==
[2023-12-09 11:37] VITALS: BP 156/80; PULSE 88; RESP 15; TEMP 98.2
--- NOTE | 2023-12-09 13:12 | P.PAINPG ---
PQRS Measure Charge Sheet Comment: A 63 yr old male with a history of severe and chronic LBP x > 5 yrs secondary to DDD and spondylosis with facet arthropathy without myelopathy presents today for medication refills. Pain level is provoked at 5 /10 in intensity, constant, localized in the mid to lower lumbar spine, predominantly axial, throbbing in character w occasional shooting pain laterally across the spine and the BLEs. Pain is provoked by standing/ sitting/ bending. Pain is alleviated with PT in 2020, chiropractic treatments years ago, heat, ice, meds, topical, reclining and rest. He is not interested in injections at this time. Patient is currently on MS ER 30mg #60, [place] 10/325mg #90 Patient denies any side effects of the medication(s), denies excessive drowsiness or sleepiness, denies suicidal ideation and reports that the current pain medication is helping to control the pain and improve activities of daily living. Patient denies any motor or sensory deficits. Patient denies any fever or night sweats, denies any change in the bowel movements or urination. Physical Examination: -Constitutional: Cooperative. Not in acute distress . - Neurologic: Cranial nerve II to XII intact. No focal neurological deficits. - Psychatric: Alert & oriented x 3. Matching mood & appropriate affect. Judgment and insight intact. - Musculoskeletal: Cervical spine: Muscle bulk/ tone/ strength in the bilateral upper extremities normal Vertebral body tenderness to palpation over Spurling test positive Distraction test positive Facet loading test positive TTP Thoracic spine Muscle bulk / tone/ strength in the bilateral paraspinal muscles normal Vertebral body tender to palpation over Facet loading test positive TTP Lumbar spine: Motor bulk/ tone/ strength lower extremities , thigh and legs : 5/5 Deep tendon reflexes : Normal Knee Jerk. Normal Ankle Jerk . Vertebral body tenderness to palpation over Lumbar Facet Loading Test positive Straight Leg Raise: positive at 30 degrees right side/ left side Gaenslen's Test positive Sacral spine : Severe tenderness over the Sacroiliac joint: right side / left side Range of motion: Flexion of the lumbar spine <60 degrees Range of motion: Extension of the lumbar spine <20 degrees Gaenslen's Test positive R / L Mahendra test: positive right side / left side Thigh Thrust Test positive R / L Sacral Thrust Test positive R/ L Assessment and plan: Chronic LBP secondary to lumbar DDD, spondylosis with facet arthropathy without myelopathy Chronic and current use of high-risk medication (Opioids). The patient was counseled about risk of opioid use, psychological risk associated with opioids and was orally counseled to not overuse , divert or sell medications. Pt is to store medication in a safe location. The patient is counseled against driving while using narcotic medications and also not to use alcohol or any illicit recreational drugs. Patient verbalized understanding that the lack of compliance will result in failure to renew narcotic prescription(s) as well as possible discharge from the clinic Diagnoses, prognosis and treatment options including but not limited to physical therapy, surgical interventions, interventional therapies and medication management including narcotics and adjuvant medication were discussed . All patient questions answered . Opiate/ narcotic agreement updated 04/22/23. MAPS reviewed and it was appropriate. UDS fr 10/14/23 reviewed and consistent. Prescription refill for MS ER 30mg #60, [place] 10/325mg #90 w 1 RF. I have spent less than 30 minutes on patient care today. Dr Rudd was available by phone for the evaluation of this patient. The time was used to review the medical records including relevant urine studies and Prescription history (MAPs), review of the available imaging, evaluation and examination of the patient, coordination of care with the medical staff and if applicable referring physicians, as well as creation of the medical record PQRS Narrative: Smoking Status Current every day smoker Narcotic Agreement Date Signed 04/22/23 Hx Alcohol Use (MH) No Home Medications: Ambulatory Orders QUEtiapine FUMARATE [SEROquel XR] 200 mg PO HS 10/13/14 Dextroamphetamine/Amphetamine [Adderall] 20 mg PO BID 05/27/16 buPROPion XL [Wellbutrin XL] 150 mg PO DAILY 08/22/19 Propranolol HCl [Propranolol HCl ER] 60 mg PO DAILY 07/23/20 Naloxone [Narcan] 2 mg IM ONCE PRN 60 Days #1 each 09/23/21 Naloxone HCl [Kloxxado] 8 mg NASAL ONCE PRN 30 Days #2 each 10/04/21 HYDROcodone/APAP 10-325MG [[place] 10-325] 1 tab PO Q8HR PRN 30 Days #90 tab 12/09/23 HYDROcodone/APAP 10-325MG [[place] 10-325] 1 tab PO Q8HR PRN 30 Days #90 tab 12/09/23 Morphine Sulfate ER [Ms Contin] 30 mg PO Q12H 30 Days #60 tab 12/09/23 Morphine Sulfate ER [Ms Contin] 30 mg PO Q12HR 30 Days #60 tab 12/09/23 Controlled Substance Measures - Controlled Substance Measures Is patient prescribed a controlled substance at discharge?: Yes When asked, does pt state using other controlled substances?: Yes If prescribed controlled substance>3 days was MAPS reviewed?: Yes
== END ==
LOC: PNWHC3 09:58
PROVIDERS: ATTEND Specialist
DX: M47.816 Spondylosis without myelopathy or radiculopathy, lumbar region (principal); M51.36 Other intervertebral disc degeneration, lumbar region; Z79.891 Long term (current) use of opiate analgesic; F17.200 Nicotine dependence, unspecified, uncomplicated
CPT/HCPCS: 99211

== ENCOUNTER → 2024-02-01 | Outpatient (CLI) | payer OTHER ==
[2024-02-01 10:18] VITALS: BP 137/80; PULSE 71; RESP 14; TEMP 97.7
--- NOTE | 2024-02-01 15:09 | P.PAINPG ---
PQRS Measure Charge Sheet Comment: A 63 yr old male with a history of severe and chronic LBP x > 5 yrs secondary to DDD and spondylosis with facet arthropathy without myelopathy presents today for medication refills. Pain level is provoked at 5 /10 in intensity, constant, localized in the mid to lower lumbar spine, predominantly axial, throbbing in character w occasional shooting pain laterally across the spine and the BLEs. Pain is provoked by standing/ sitting/ bending. Pain is alleviated with PT in 2020, chiropractic treatments years ago, heat, ice, meds, topical, reclining and rest. He is not interested in injections at this time. Patient is currently on MS ER 30mg #60, [place] 10/325mg #90 Patient denies any side effects of the medication(s), denies excessive drowsiness or sleepiness, denies suicidal ideation and reports that the current pain medication is helping to control the pain and improve activities of daily living. Patient denies any motor or sensory deficits. Patient denies any fever or night sweats, denies any change in the bowel movements or urination. Physical Examination: -Constitutional: Cooperative. Not in acute distress . - Neurologic: Cranial nerve II to XII intact. No focal neurological deficits. - Psychatric: Alert & oriented x 3. Matching mood & appropriate affect. Judgment and insight intact. - Musculoskeletal: Cervical spine: Muscle bulk/ tone/ strength in the bilateral upper extremities normal Vertebral body tenderness to palpation over Spurling test positive Distraction test positive Facet loading test positive TTP Thoracic spine Muscle bulk / tone/ strength in the bilateral paraspinal muscles normal Vertebral body tender to palpation over Facet loading test positive TTP Lumbar spine: Motor bulk/ tone/ strength lower extremities , thigh and legs : 5/5 Deep tendon reflexes : Normal Knee Jerk. Normal Ankle Jerk . Vertebral body tenderness to palpation over Lumbar Facet Loading Test positive Straight Leg Raise: positive at 30 degrees right side/ left side Gaenslen's Test positive Sacral spine : Severe tenderness over the Sacroiliac joint: right side / left side Range of motion: Flexion of the lumbar spine <60 degrees Range of motion: Extension of the lumbar spine <20 degrees Gaenslen's Test positive R / L Mahendra test: positive right side / left side Thigh Thrust Test positive R / L Sacral Thrust Test positive R/ L Assessment and plan: Chronic LBP secondary to lumbar DDD, spondylosis with facet arthropathy without myelopathy Chronic and current use of high-risk medication (Opioids). The patient was counseled about risk of opioid use, psychological risk associated with opioids and was orally counseled to not overuse , divert or sell medications. Pt is to store medication in a safe location. The patient is counseled against driving while using narcotic medications and also not to use alcohol or any illicit recreational drugs. Patient verbalized understanding that the lack of compliance will result in failure to renew narcotic prescription(s) as well as possible discharge from the clinic Diagnoses, prognosis and treatment options including but not limited to physical therapy, surgical interventions, interventional therapies and medication management including narcotics and adjuvant medication were discussed . All patient questions answered . Opiate/ narcotic agreement updated 04/22/23. MAPS reviewed and it was appropriate. UDS fr 10/14/23 reviewed and consistent. Prescription refill for MS ER 30mg #60, [place] 10/325mg #90 w 1 RF. I have spent less than 30 minutes on patient care today. Dr Rudd was available by phone for the evaluation of this patient. The time was used to review the medical records including relevant urine studies and Prescription history (MAPs), review of the available imaging, evaluation and examination of the patient, coordination of care with the medical staff and if applicable referring physicians, as well as creation of the medical record PQRS Narrative: Smoking Status Current every day smoker Narcotic Agreement Date Signed 04/22/23 Hx Alcohol Use (MH) No Home Medications: Ambulatory Orders QUEtiapine FUMARATE [SEROquel XR] 200 mg PO HS 10/13/14 Dextroamphetamine/Amphetamine [Adderall] 20 mg PO BID 05/27/16 buPROPion XL [Wellbutrin XL] 150 mg PO DAILY 08/22/19 Propranolol HCl [Propranolol HCl ER] 60 mg PO DAILY 07/23/20 Naloxone [Narcan] 2 mg IM ONCE PRN 60 Days #1 each 09/23/21 Naloxone HCl [Kloxxado] 8 mg NASAL ONCE PRN 30 Days #2 each 10/04/21 HYDROcodone/APAP 10-325MG [[place] 10-325] 1 tab PO Q8HR PRN 30 Days #90 tab 02/01/24 HYDROcodone/APAP 10-325MG [[place] 10-325] 1 tab PO TID PRN 30 Days #90 tab 02/01/24 Morphine Sulfate ER [Ms Contin] 30 mg PO Q12H 30 Days #60 tab 02/01/24 Morphine Sulfate ER [Ms Contin] 30 mg PO Q12HR 30 Days #60 tab 02/01/24 Controlled Substance Measures - Controlled Substance Measures Is patient prescribed a controlled substance at discharge?: Yes When asked, does pt state using other controlled substances?: Yes If prescribed controlled substance>3 days was MAPS reviewed?: Yes
== END ==
LOC: PNWHC3 09:37
PROVIDERS: ATTEND Specialist
DX: M51.36 Other intervertebral disc degeneration, lumbar region (principal); M47.816 Spondylosis without myelopathy or radiculopathy, lumbar region; F17.200 Nicotine dependence, unspecified, uncomplicated; Z79.891 Long term (current) use of opiate analgesic
CPT/HCPCS: 99211

== ENCOUNTER → 2024-04-04 | Outpatient (CLI) | payer OTHER ==
[2024-04-04 11:04] VITALS: BP 160/82; PULSE 62; RESP 16; TEMP 97.6
--- NOTE | 2024-04-04 15:10 | P.PAINPG ---
PQRS Measure Charge Sheet Comment: A 64 yr old male with a history of severe and chronic LBP x > 5 yrs secondary to DDD and spondylosis with facet arthropathy without myelopathy presents today for medication refills. Pain level is provoked at 5 /10 in intensity, constant, localized in the mid to lower lumbar spine, predominantly axial, throbbing in character w occasional shooting pain laterally across the spine and the BLEs. Pain is provoked by standing/ sitting/ bending. Pain is alleviated with PT in 2020, chiropractic treatments years ago, heat, ice, meds, topical, reclining and rest. He is not interested in injections at this time. Patient is currently on MS ER 30mg #60, [place] 10/325mg #90 Patient denies any side effects of the medication(s), denies excessive drowsiness or sleepiness, denies suicidal ideation and reports that the current pain medication is helping to control the pain and improve activities of daily living. Patient denies any motor or sensory deficits. Patient denies any fever or night sweats, denies any change in the bowel movements or urination. Physical Examination: -Constitutional: Cooperative. Not in acute distress . - Neurologic: Cranial nerve II to XII intact. No focal neurological deficits. - Psychatric: Alert & oriented x 3. Matching mood & appropriate affect. Judgment and insight intact. - Musculoskeletal: Cervical spine: Muscle bulk/ tone/ strength in the bilateral upper extremities normal Vertebral body tenderness to palpation over Spurling test positive Distraction test positive Facet loading test positive TTP Thoracic spine Muscle bulk / tone/ strength in the bilateral paraspinal muscles normal Vertebral body tender to palpation over Facet loading test positive TTP Lumbar spine: Motor bulk/ tone/ strength lower extremities , thigh and legs : 5/5 Deep tendon reflexes : Normal Knee Jerk. Normal Ankle Jerk . Vertebral body tenderness to palpation over Lumbar Facet Loading Test positive Straight Leg Raise: positive at 30 degrees right side/ left side Gaenslen's Test positive Sacral spine : Severe tenderness over the Sacroiliac joint: right side / left side Range of motion: Flexion of the lumbar spine <60 degrees Range of motion: Extension of the lumbar spine <20 degrees Gaenslen's Test positive R / L Mahendra test: positive right side / left side Thigh Thrust Test positive R / L Sacral Thrust Test positive R/ L Assessment and plan: Chronic LBP secondary to lumbar DDD, spondylosis with facet arthropathy without myelopathy Chronic and current use of high-risk medication (Opioids). The patient was counseled about risk of opioid use, psychological risk associated with opioids and was orally counseled to not overuse , divert or sell medications. Pt is to store medication in a safe location. The patient is counseled against driving while using narcotic medications and also not to use alcohol or any illicit recreational drugs. Patient verbalized understanding that the lack of compliance will result in failure to renew narcotic prescription(s) as well as possible discharge from the clinic Diagnoses, prognosis and treatment options including but not limited to physical therapy, surgical interventions, interventional therapies and medication management including narcotics and adjuvant medication were discussed . All patient questions answered . Opiate/ narcotic agreement updated 04/22/23. MAPS reviewed and it was appropriate. UDS collected 04/04/24. Prescription refill for MS ER 30mg #60, [place] 10/325mg #90 w 1 RF. I have spent less than 30 minutes on patient care today. Dr Rudd was available by phone for the evaluation of this patient. The time was used to review the medical records including relevant urine studies and Prescription history (MAPs), review of the available imaging, evaluation and examination of the patient, coordination of care with the medical staff and if applicable referring physicians, as well as creation of the medical record PQRS Narrative: Smoking Status Current every day smoker Narcotic Agreement Date Signed 04/22/23 Hx Alcohol Use (MH) No Home Medications: Ambulatory Orders QUEtiapine FUMARATE [SEROquel XR] 200 mg PO HS 10/13/14 Dextroamphetamine/Amphetamine [Adderall] 20 mg PO BID 05/27/16 buPROPion XL [Wellbutrin XL] 150 mg PO DAILY 08/22/19 Propranolol HCl [Propranolol HCl ER] 60 mg PO DAILY 07/23/20 Naloxone [Narcan] 2 mg IM ONCE PRN 60 Days #1 each 09/23/21 Naloxone HCl [Kloxxado] 8 mg NASAL ONCE PRN 30 Days #2 each 10/04/21 HYDROcodone/APAP 10-325MG [[place] 10-325] 1 tab PO Q8HR PRN 30 Days #90 tab 04/04/24 HYDROcodone/APAP 10-325MG [[place] 10-325] 1 tab PO TID PRN 30 Days #90 tab 04/04/24 Morphine Sulfate ER [Ms Contin] 30 mg PO Q12H 30 Days #60 tab 04/04/24 Morphine Sulfate ER [Ms Contin] 30 mg PO Q12HR 30 Days #60 tab 04/04/24 Controlled Substance Measures - Controlled Substance Measures Is patient prescribed a controlled substance at discharge?: Yes When asked, does pt state using other controlled substances?: Yes If prescribed controlled substance>3 days was MAPS reviewed?: Yes
== END ==
LOC: PNWHC3 09:18
PROVIDERS: ATTEND Specialist
DX: M51.36 Other intervertebral disc degeneration, lumbar region (principal); M47.816 Spondylosis without myelopathy or radiculopathy, lumbar region; F17.200 Nicotine dependence, unspecified, uncomplicated; Z79.891 Long term (current) use of opiate analgesic
CPT/HCPCS: 99211

== ENCOUNTER → 2024-05-30 | Outpatient (CLI) | payer OTHER ==
[2024-05-30 09:47] VITALS: BP 144/88; PULSE 77; RESP 16
--- NOTE | 2024-05-30 15:46 | P.PAINPG ---
Objective - Vital Signs Vital signs: Vital Signs Temp Pulse 77 05/30/24 09:45 Resp 16 05/30/24 09:45 BP 144/88 05/30/24 09:45 Pulse Ox 100 05/30/24 09:45 FiO2 Intake & Output 05/29/24 05/30/24 05/30/24 18:59 06:59 18:59 Weight 81.647 kg PQRS Measure Charge Sheet Mode of Arrival: Ambulatory Comment: A 64 yr old male with a history of severe and chronic LBP x > 5 yrs secondary to radiculopathy, spondylosis with facet arthropathy without myelopathy presents today for medication refills. Pain level is provoked at 5 /10 in intensity, constant, localized in the mid to lower lumbar spine, predominantly axial, throbbing in character w occasional shooting pain laterally across the spine and the BLEs. Pain is provoked by standing/ sitting/ bending. Pain is alleviated with PT in 2020, chiropractic treatments years ago, heat, ice, meds, topical, reclining and rest. He is not interested in injections at this time. Patient is currently on MS ER 30mg #60, [place] 10/325mg #90 Patient denies any side effects of the medication(s), denies excessive drowsiness or sleepiness, denies suicidal ideation and reports that the current pain medication is helping to control the pain and improve activities of daily living. Patient denies any motor or sensory deficits. Patient denies any fever or night sweats, denies any change in the bowel movements or urination. Physical Examination: -Constitutional: Cooperative. Not in acute distress . - Neurologic: Cranial nerve II to XII intact. No focal neurological deficits. - Psychatric: Alert & oriented x 3. Matching mood & appropriate affect. Judgment and insight intact. - Musculoskeletal: Cervical spine: Muscle bulk/ tone/ strength in the bilateral upper extremities normal Vertebral body tenderness to palpation over Spurling test positive Distraction test positive Facet loading test positive TTP Thoracic spine Muscle bulk / tone/ strength in the bilateral paraspinal muscles normal Vertebral body tender to palpation over Facet loading test positive TTP Lumbar spine: Motor bulk/ tone/ strength lower extremities , thigh and legs : 5/5 Deep tendon reflexes : Normal Knee Jerk. Normal Ankle Jerk . Vertebral body tenderness to palpation over Lumbar Facet Loading Test positive Straight Leg Raise: positive at 30 degrees right side/ left side Gaenslen's Test positive Sacral spine : Severe tenderness over the Sacroiliac joint: right side / left side Range of motion: Flexion of the lumbar spine <60 degrees Range of motion: Extension of the lumbar spine <20 degrees Gaenslen's Test positive R / L Mahendra test: positive right side / left side Thigh Thrust Test positive R / L Sacral Thrust Test positive R/ L Assessment and plan: Chronic LBP secondary to radiculopathy, spondylosis with facet arthropathy without myelopathy Chronic and current use of high-risk medication (Opioids). The patient was counseled about risk of opioid use, psychological risk associated with opioids and was orally counseled to not overuse , divert or sell medications. Pt is to store medication in a safe location. The patient is counseled against driving while using narcotic medications and also not to use alcohol or any illicit recreational drugs. Patient verbalized understanding that the lack of compliance will result in failure to renew narcotic prescription(s) as well as possible discharge from the clinic Diagnoses, prognosis and treatment options including but not limited to physical therapy, surgical interventions, interventional therapies and medication management including narcotics and adjuvant medication were discussed. All patient questions answered . Opiate/ narcotic agreement renewed 05/30/24. MAPS reviewed and it was appropriate. UDS collected 04/04/24 not run. Blood tox screen script provided, notified pt that it has to be completed today. Prescription refill pending for MS ER 30mg #60, [place] 10/325mg #90 w 1 RF. Awaiting tox screen results. I have spent less than 30 minutes on patient care today. Dr Rudd was available by phone for the evaluation of this patient. The time was used to review the medical records including relevant urine studies and Prescription history (MAPs), review of the available imaging, evaluation and examination of the patient, coordination of care with the medical staff and if applicable referring physicians, as well as creation of the medical record - Pain Location Lower Back Non-Pharmacological Interventions: Heat Pharmacological Interventions: Scheduled Medication PQRS Narrative: Smoking Status Current every day smoker Narcotic Agreement Date Signed 04/22/23 Blood Pressure 144/88 Pain Intensity [Lower Back] 4 Scale Used Numeric (1 - 10) Hx Alcohol Use (MH) No Home Medications: Ambulatory Orders QUEtiapine FUMARATE [SEROquel XR] 200 mg PO HS 10/13/14 Dextroamphetamine/Amphetamine [Adderall] 20 mg PO BID 05/27/16 buPROPion XL [Wellbutrin XL] 150 mg PO DAILY 08/22/19 Propranolol HCl [Propranolol HCl ER] 60 mg PO DAILY 07/23/20 Naloxone [Narcan] 2 mg IM ONCE PRN 60 Days #1 each 09/23/21 Naloxone HCl [Kloxxado] 8 mg NASAL ONCE PRN 30 Days #2 each 10/04/21 HYDROcodone/APAP 10-325MG [[place] 10-325] 1 tab PO Q8HR PRN 30 Days #90 tab 04/04/24 HYDROcodone/APAP 10-325MG [[place] 10-325] 1 tab PO TID PRN 30 Days #90 tab 04/04/24 Morphine Sulfate ER [Ms Contin] 30 mg PO Q12H 30 Days #60 tab 04/04/24 Morphine Sulfate ER [Ms Contin] 30 mg PO Q12HR 30 Days #60 tab 04/04/24 Controlled Substance Measures - Controlled Substance Measures Is patient prescribed a controlled substance at discharge?: No
== END ==
LOC: PNWHC3 09:32
PROVIDERS: ATTEND Specialist
DX: M47.26 Other spondylosis with radiculopathy, lumbar region (principal); F17.200 Nicotine dependence, unspecified, uncomplicated; Z79.891 Long term (current) use of opiate analgesic
CPT/HCPCS: 99211

== ENCOUNTER → 2024-05-30 | Outpatient (CLI) | payer OTHER ==
[2024-05-31 07:45] LABS: Serum Amphetamine Negative; Serum Barbiturates Negative; Serum Benzodiazepine Negative; Serum Cocaine Negative; Serum Methadone Negative; Serum Opiates Positive; Serum Phencyclidine Negative; Serum Propoxyphene Negative; Serum THC (Cannabis) Negative
== END | disposition home or self-care (01) ==
LOC: LABWHC1 10:15
PROVIDERS: ATTEND Physician Assistant Medical
DX: Z02.83 Encounter for blood-alcohol and blood-drug test (principal)
CPT/HCPCS: 36415; 80307

== ENCOUNTER → 2024-07-25 | Outpatient (CLI) | payer OTHER ==
[2024-07-25 11:10] VITALS: BP 123/86; PULSE 93; RESP 16; TEMP 97.9
--- NOTE | 2024-07-25 17:18 | P.PAINPG ---
PQRS Measure Charge Sheet Comment: A 64 yr old male with a history of severe and chronic LBP x > 5 yrs secondary to radiculopathy, spondylosis with facet arthropathy without myelopathy presents today for medication refills. Pain level is provoked at 5 /10 in intensity, constant, localized in the mid to lower lumbar spine, predominantly axial, throbbing in character w occasional shooting pain laterally across the spine and the BLEs. Pain is provoked by standing/ sitting/ bending. Pain is alleviated with PT in 2020, chiropractic treatments years ago, heat, ice, meds, topical, reclining and rest. He is not interested in injections at this time. Patient is currently on MS ER 30mg #60, [place] 10/325mg #90 Patient denies any side effects of the medication(s), denies excessive drowsiness or sleepiness, denies suicidal ideation and reports that the current pain medication is helping to control the pain and improve activities of daily living. Patient denies any motor or sensory deficits. Patient denies any fever or night sweats, denies any change in the bowel movements or urination. Physical Examination: -Constitutional: Cooperative. Not in acute distress . - Neurologic: Cranial nerve II to XII intact. No focal neurological deficits. - Psychatric: Alert & oriented x 3. Matching mood & appropriate affect. Judgment and insight intact. - Musculoskeletal: Cervical spine: Muscle bulk/ tone/ strength in the bilateral upper extremities normal Vertebral body tenderness to palpation over Spurling test positive Distraction test positive Facet loading test positive TTP Thoracic spine Muscle bulk / tone/ strength in the bilateral paraspinal muscles normal Vertebral body tender to palpation over Facet loading test positive TTP Lumbar spine: Motor bulk/ tone/ strength lower extremities , thigh and legs : 5/5 Deep tendon reflexes : Normal Knee Jerk. Normal Ankle Jerk . Vertebral body tenderness to palpation over Lumbar Facet Loading Test positive Straight Leg Raise: positive at 30 degrees right side/ left side Gaenslen's Test positive Sacral spine : Severe tenderness over the Sacroiliac joint: right side / left side Range of motion: Flexion of the lumbar spine <60 degrees Range of motion: Extension of the lumbar spine <20 degrees Gaenslen's Test positive R / L Mahendra test: positive right side / left side Thigh Thrust Test positive R / L Sacral Thrust Test positive R/ L Assessment and plan: Chronic LBP secondary to radiculopathy, spondylosis with facet arthropathy without myelopathy Chronic and current use of high-risk medication (Opioids). The patient was counseled about risk of opioid use, psychological risk associated with opioids and was orally counseled to not overuse , divert or sell medications. Pt is to store medication in a safe location. The patient is counseled against driving while using narcotic medications and also not to use alcohol or any illicit recreational drugs. Patient verbalized understanding that the lack of compliance will result in failure to renew narcotic prescription(s) as well as possible discharge from the clinic Diagnoses, prognosis and treatment options including but not limited to physical therapy, surgical interventions, interventional therapies and medication management including narcotics and adjuvant medication were discussed. All patient questions answered . Opiate/ narcotic agreement renewed 05/30/24. MAPS reviewed and it was appropriate. Blood tox screen from 05/30/24 reviewed and +Opiates. Prescription refill for MS ER 30mg #60, [place] 10/325mg #90 w 1 RF. I have spent less than 30 minutes on patient care today. Dr Rudd was available by phone for the evaluation of this patient. The time was used to review the medical records including relevant urine studies and Prescription history (MAPs), review of the available imaging, evaluation and examination of the patient, coordination of care with the medical staff and if applicable referring physicians, as well as creation of the medical record - Pain Location Bilateral Lower Back Non-Pharmacological Interventions: Heat, Inactivity, Physical Therapy, Position/Reposition, Sitting Pharmacological Interventions: Scheduled Medication, Topical Medication PQRS Narrative: Smoking Status Current every day smoker Narcotic Agreement Date Signed 04/22/23 Hx Alcohol Use (MH) No Home Medications: Ambulatory Orders QUEtiapine FUMARATE [SEROquel XR] 200 mg PO HS 10/13/14 Dextroamphetamine/Amphetamine [Adderall] 20 mg PO BID 05/27/16 buPROPion XL [Wellbutrin XL] 150 mg PO DAILY 08/22/19 Propranolol HCl [Propranolol HCl ER] 60 mg PO DAILY 07/23/20 Naloxone [Narcan] 2 mg IM ONCE PRN 60 Days #1 each 09/23/21 Naloxone HCl [Kloxxado] 8 mg NASAL ONCE PRN 30 Days #2 each 10/04/21 HYDROcodone/APAP 10-325MG [[place] 10-325] 1 tab PO Q8HR PRN 30 Days #90 tab 07/25/24 HYDROcodone/APAP 10-325MG [[place] 10-325] 1 tab PO TID PRN 30 Days #90 tab 07/25/24 Morphine Sulfate ER [Ms Contin] 30 mg PO Q12H 30 Days #60 tab 07/25/24 Morphine Sulfate ER [Ms Contin] 30 mg PO Q12HR 30 Days #60 tab 07/25/24 Controlled Substance Measures - Controlled Substance Measures Is patient prescribed a controlled substance at discharge?: Yes When asked, does pt state using other controlled substances?: Yes If prescribed controlled substance>3 days was MAPS reviewed?: Yes
== END ==
LOC: PNWHC3 10:14
PROVIDERS: ATTEND Specialist
DX: M47.26 Other spondylosis with radiculopathy, lumbar region (principal); F11.90 Opioid use, unspecified, uncomplicated; F17.200 Nicotine dependence, unspecified, uncomplicated
CPT/HCPCS: 99211

== ENCOUNTER → 2024-09-19 | Outpatient (CLI) | payer OTHER ==
[2024-09-19 10:31] VITALS: BP 142/87; PULSE 78; RESP 17; TEMP 96.7
--- NOTE | 2024-09-19 15:39 | P.PAINPG ---
PQRS Measure Charge Sheet Comment: A 64 yr old male with a history of severe and chronic LBP x > 5 yrs secondary to radiculopathy, spondylosis with facet arthropathy without myelopathy presents today for medication refills. Pain level is provoked at 5 /10 in intensity, constant, localized in the mid to lower lumbar spine, predominantly axial, throbbing in character w occasional shooting pain laterally across the spine and the BLEs. Pain is provoked by standing/ sitting/ bending. Pain is alleviated with PT in 2020, chiropractic treatments years ago, heat, ice, meds, topical, reclining and rest. He is not interested in injections at this time. Patient is currently on MS ER 30mg #60, [place] 10/325mg #90 Patient denies any side effects of the medication(s), denies excessive drowsiness or sleepiness, denies suicidal ideation and reports that the current pain medication is helping to control the pain and improve activities of daily living. Patient denies any motor or sensory deficits. Patient denies any fever or night sweats, denies any change in the bowel movements or urination. Physical Examination: -Constitutional: Cooperative. Not in acute distress . - Neurologic: Cranial nerve II to XII intact. No focal neurological deficits. - Psychatric: Alert & oriented x 3. Matching mood & appropriate affect. Judgment and insight intact. - Musculoskeletal: Cervical spine: Muscle bulk/ tone/ strength in the bilateral upper extremities normal Vertebral body tenderness to palpation over Spurling test positive Distraction test positive Facet loading test positive TTP Thoracic spine Muscle bulk / tone/ strength in the bilateral paraspinal muscles normal Vertebral body tender to palpation over Facet loading test positive TTP Lumbar spine: Motor bulk/ tone/ strength lower extremities , thigh and legs : 5/5 Deep tendon reflexes : Normal Knee Jerk. Normal Ankle Jerk . Vertebral body tenderness to palpation over Lumbar Facet Loading Test positive Straight Leg Raise: positive at 30 degrees right side/ left side Gaenslen's Test positive Sacral spine : Severe tenderness over the Sacroiliac joint: right side / left side Range of motion: Flexion of the lumbar spine <60 degrees Range of motion: Extension of the lumbar spine <20 degrees Gaenslen's Test positive R / L Mahendra test: positive right side / left side Thigh Thrust Test positive R / L Sacral Thrust Test positive R/ L Assessment and plan: Chronic LBP secondary to radiculopathy, spondylosis with facet arthropathy without myelopathy Chronic and current use of high-risk medication (Opioids). The patient was counseled about risk of opioid use, psychological risk associated with opioids and was orally counseled to not overuse , divert or sell medications. Pt is to store medication in a safe location. The patient is counseled against driving while using narcotic medications and also not to use alcohol or any illicit recreational drugs. Patient verbalized understanding that the lack of compliance will result in failure to renew narcotic prescription(s) as well as possible discharge from the clinic Diagnoses, prognosis and treatment options including but not limited to physical therapy, surgical interventions, interventional therapies and medication management including narcotics and adjuvant medication were discussed. All patient questions answered . Opiate/ narcotic agreement renewed 05/30/24. MAPS reviewed and it was appropriate. Blood tox screen from 05/30/24 reviewed and consistent. Prescription refill pending for MS ER 30mg #60, [place] 10/325mg #90 w 1 RF. I have spent less than 30 minutes on patient care today. Dr Rudd was available by phone for the evaluation of this patient. The time was used to review the medical records including relevant urine studies and Prescription history (MAPs), review of the available imaging, evaluation and examination of the patient, coordination of care with the medical staff and if applicable referring physicians, as well as creation of the medical record - Pain Location Lower Medial Back Non-Pharmacological Interventions: Heat, Position/Reposition Pharmacological Interventions: Medication PQRS Narrative: Smoking Status Current every day smoker Narcotic Agreement Date Signed 05/30/24 Hx Alcohol Use (MH) No Home Medications: Ambulatory Orders QUEtiapine FUMARATE [SEROquel XR] 200 mg PO HS 10/13/14 Dextroamphetamine/Amphetamine [Adderall] 20 mg PO BID 05/27/16 buPROPion XL [Wellbutrin XL] 150 mg PO DAILY 08/22/19 Propranolol HCl [Propranolol HCl ER] 60 mg PO DAILY 07/23/20 Naloxone [Narcan] 2 mg IM ONCE PRN 60 Days #1 each 09/23/21 Naloxone HCl [Kloxxado] 8 mg NASAL ONCE PRN 30 Days #2 each 10/04/21 HYDROcodone/APAP 10-325MG [[place] 10-325] 1 tab PO Q8HR PRN 30 Days #90 tab 09/19/24 HYDROcodone/APAP 10-325MG [[place] 10-325] 1 tab PO TID PRN 30 Days #90 tab 09/19/24 Morphine Sulfate ER [Ms Contin] 30 mg PO Q12H 30 Days #60 tab 09/19/24 Morphine Sulfate ER [Ms Contin] 30 mg PO Q12HR 30 Days #60 tab 09/19/24 Controlled Substance Measures - Controlled Substance Measures Is patient prescribed a controlled substance at discharge?: Yes When asked, does pt state using other controlled substances?: No If prescribed controlled substance>3 days was MAPS reviewed?: Yes
== END ==
LOC: PNWHC3 09:56
PROVIDERS: ATTEND Specialist
DX: M47.26 Other spondylosis with radiculopathy, lumbar region (principal); G89.29 Other chronic pain; F17.210 Nicotine dependence, cigarettes, uncomplicated; Z79.899 Other long term (current) drug therapy
CPT/HCPCS: 99212

== ENCOUNTER → 2024-11-07 | Outpatient (CLI) | payer OTHER ==
[2024-11-07 10:32] VITALS: BP 142/86; PULSE 70; RESP 18; TEMP 98.3
--- NOTE | 2024-11-07 14:30 | P.PAINPG ---
PQRS Measure Charge Sheet Comment: A 64 yr old male with a history of severe and chronic LBP x > 5 yrs secondary to radiculopathy, spondylosis with facet arthropathy without myelopathy presents today for medication refills. Pain level is provoked at 5-6 /10 in intensity, constant, localized in the mid to lower lumbar spine, predominantly axial, throbbing in character w occasional shooting pain laterally across the spine and the BLEs. Pain is provoked by standing/ sitting/ bending. Pain is alleviated with PT in 2020, chiropractic treatments years ago, heat, ice, meds, topical, reclining and rest. He is not interested in injections at this time. There is a temporary shortage of MS at [facility]. Patient is currently on MS ER 30mg #60, [place] 10/325mg #90 Patient denies any side effects of the medication(s), denies excessive drowsiness or sleepiness, denies suicidal ideation and reports that the current pain medication is helping to control the pain and improve activities of daily living. Patient denies any motor or sensory deficits. Patient denies any fever or night sweats, denies any change in the bowel movements or urination. Physical Examination: -Constitutional: Cooperative. Not in acute distress . - Neurologic: Cranial nerve II to XII intact. No focal neurological deficits. - Psychatric: Alert & oriented x 3. Matching mood & appropriate affect. Judgment and insight intact. - Musculoskeletal: Cervical spine: Muscle bulk/ tone/ strength in the bilateral upper extremities normal Vertebral body tenderness to palpation over Spurling test positive Distraction test positive Facet loading test positive TTP Thoracic spine Muscle bulk / tone/ strength in the bilateral paraspinal muscles normal Vertebral body tender to palpation over Facet loading test positive TTP Lumbar spine: Motor bulk/ tone/ strength lower extremities , thigh and legs : 5/5 Deep tendon reflexes : Normal Knee Jerk. Normal Ankle Jerk . Vertebral body tenderness to palpation over Lumbar Facet Loading Test positive Straight Leg Raise: positive at 30 degrees right side/ left side Gaenslen's Test positive Sacral spine : Severe tenderness over the Sacroiliac joint: right side / left side Range of motion: Flexion of the lumbar spine <60 degrees Range of motion: Extension of the lumbar spine <20 degrees Gaenslen's Test positive R / L Mahendra test: positive right side / left side Thigh Thrust Test positive R / L Sacral Thrust Test positive R/ L Assessment and plan: Chronic LBP secondary to radiculopathy, spondylosis with facet arthropathy without myelopathy Chronic and current use of high-risk medication (Opioids). The patient was counseled about risk of opioid use, psychological risk associated with opioids and was orally counseled to not overuse , divert or sell medications. Pt is to store medication in a safe location. The patient is counseled against driving while using narcotic medicat ions and also not to use alcohol or any illicit recreational drugs. Patient verbalized understanding that the lack of compliance will result in failure to renew narcotic prescription(s) as well as possible discharge from the clinic Diagnoses, prognosis and treatment options including but not limited to physical therapy, surgical interventions, interventional therapies and medication management including narcotics and adjuvant medication were discussed. All patient questions answered . Opiate/ narcotic agreement renewed 05/30/24. MAPS reviewed and it was appropriate. UDS collected 11/07/24. Prescription refill pending for MS ER 30mg #60, [place] 10/325mg #90 w 1 RF. I have spent less than 30 minutes on patient care today. Dr Rudd was available by phone for the evaluation of this patient. The time was used to review the medical records including relevant urine studies and Prescription history (MAPs), review of the available imaging, evaluation and examination of the patient, coordination of care with the medical staff and if applicable referring physicians, as well as creation of the medical record - Pain Location Lower Back Non-Pharmacological Interventions: Heat, Ice Pharmacological Interventions: Medication PQRS Narrative: Smoking Status Current every day smoker Narcotic Agreement Date Signed 05/30/24 Hx Alcohol Use (MH) No Home Medications: Ambulatory Orders QUEtiapine FUMARATE [SEROquel XR] 200 mg PO HS 10/13/14 Dextroamphetamine/Amphetamine [Adderall] 20 mg PO BID 05/27/16 buPROPion XL [Wellbutrin XL] 150 mg PO DAILY 08/22/19 Propranolol HCl [Propranolol HCl ER] 60 mg PO DAILY 07/23/20 Naloxone [Narcan] 2 mg IM ONCE PRN 60 Days #1 each 09/23/21 Naloxone HCl [Kloxxado] 8 mg NASAL ONCE PRN 30 Days #2 each 10/04/21 HYDROcodone/APAP 10-325MG [[place] 10-325] 1 tab PO Q8HR PRN 30 Days #90 tab 11/07/24 HYDROcodone/APAP 10-325MG [[place] 10-325] 1 tab PO TID PRN 30 Days #90 tab 11/07/24 Morphine Sulfate ER [Ms Contin] 30 mg PO Q12H 30 Days #60 tab 11/07/24 Morphine Sulfate ER [Ms Contin] 30 mg PO Q12HR 30 Days #60 tab 11/07/24 Controlled Substance Measures - Controlled Substance Measures Is patient prescribed a controlled substance at discharge?: Yes When asked, does pt state using other controlled substances?: Yes If prescribed controlled substance>3 days was MAPS reviewed?: Yes
== END ==
LOC: PNWHC3 09:41
PROVIDERS: ATTEND Specialist
DX: M47.26 Other spondylosis with radiculopathy, lumbar region (principal); F17.200 Nicotine dependence, unspecified, uncomplicated; Z79.891 Long term (current) use of opiate analgesic
CPT/HCPCS: 80307; G0463; 99212

== ENCOUNTER → 2025-01-02 | Outpatient (CLI) | payer OTHER ==
[2025-01-02 09:48] VITALS: BP 132/87; PULSE 72; RESP 17; TEMP 97.9
--- NOTE | 2025-01-02 15:44 | P.PAINPG ---
Objective - Vital Signs Vital signs: Vital Signs Temp 97.9 F 01/02/25 09:39 Pulse 72 01/02/25 09:39 Resp 17 01/02/25 09:39 BP 132/87 01/02/25 09:39 Pulse Ox 95 01/02/25 09:39 FiO2 Intake & Output 01/01/25 01/02/25 01/02/25 18:59 06:59 18:59 Weight 81.647 kg PQRS Measure Charge Sheet Mode of Arrival: Ambulatory Comment: A 64 yr old male with a history of severe and chronic LBP x > 5 yrs secondary to radiculopathy, spondylosis with facet arthropathy without myelopathy presents today for medication refills. Pain level is provoked at 2-6 /10 in intensity, constant, localized in the mid to lower lumbar spine, predominantly axial, throbbing in character w occasional shooting pain laterally across the spine and the BLEs. Pain is provoked by standing/ sitting/ bending. Pain is alleviated with PT in 2020, chiropractic treatments years ago, heat, ice, meds, topical, reclining and rest. He is not interested in injections at this time. [facility] letter states there is overdose risk associated w concurrent use. Discussed use of Narcan w pt. Patient is currently on MS ER 30mg #60, [place] 10/325mg #90 Patient denies any side effects of the medication(s), denies excessive drowsin ess or sleepiness, denies suicidal ideation and reports that the current pain medication is helping to control the pain and improve activities of daily living. Patient denies any motor or sensory deficits. Patient denies any fever or night sweats, denies any change in the bowel movements or urination. Physical Examination: -Constitutional: Cooperative. Not in acute distress . - Neurologic: Cranial nerve II to XII intact. No focal neurological deficits. - Psychatric: Alert & oriented x 3. Matching mood & appropriate affect. Judgment and insight intact. - Musculoskeletal: Cervical spine: Muscle bulk/ tone/ strength in the bilateral upper extremities normal Vertebral body tenderness to palpation over Spurling test positive Distraction test positive Facet loading test positive TTP Thoracic spine Muscle bulk / tone/ strength in the bilateral paraspinal muscles normal Vertebral body tender to palpation over Facet loading test positive TTP Lumbar spine: Motor bulk/ tone/ strength lower extremities , thigh and legs : 5/5 Deep tendon reflexes : Normal Knee Jerk. Normal Ankle Jerk . Vertebral body tenderness to palpation over Lumbar Facet Loading Test positive Straight Leg Raise: positive at 30 degrees right side/ left side Gaenslen's Test positive Sacral spine : Severe tenderness over the Sacroiliac joint: right side / left side Range of motion: Flexion of the lumbar spine <60 degrees Range of motion: Extension of the lumbar spine <20 degrees Gaenslen's Test positive R / L Mahendra test: positive right side / left side Thigh Thrust Test positive R / L Sacral Thrust Test positive R/ L Assessment and plan: Chronic LBP secondary to radiculopathy, spondylosis with facet arthropathy without myelopathy Chronic and current use of high-risk medication (Opioids). The patient was counseled about risk of opioid use, psychological risk associated with opioids and was orally counseled to not overuse , divert or sell medications. Pt is to store medication in a safe location. The patient is counseled against driving while using narcotic medications and also not to use alcohol or any illicit recreational drugs. Patient verbalized understanding that the lack of compliance will result in failure to renew narcotic prescription(s) as well as possible discharge from the clinic Diagnoses, prognosis and treatment options including but not limited to physical therapy, surgical interventions, interventional therapies and medication management including narcotics and adjuvant medication were discussed. All patient questions answered . Opiate/ narcotic agreement renewed 05/30/24. MAPS reviewed and it was appropriate. UDS 11/07/24 reviewed and consistent. Add Narcan. Prescription refill pending for MS ER 30mg #60, [place] 10/325mg #90 w 1 RF. I have spent less than 30 minutes on patient care today. Dr Rudd was available by phone for the evaluation of this patient. The time was used to review the medical records including relevant urine studies and Prescription history (MAPs), review of the available imaging, evaluation and examination of the patient, coordination of care with the medical staff and if applicable referring physicians, as well as creation of the medical record - Pain Location Bilateral Lower Back Non-Pharmacological Interventions: Chiropractic Treatment, Heat, Massage, Physical Therapy Pharmacological Interventions: Epidural, Scheduled Medication PQRS Narrative: Smoking Status Current every day smoker Narcotic Agreement Date Signed 05/30/24 Blood Pressure 132/87 Pain Intensity [Bilateral 4 Lower Back] Scale Used Numeric (1 - 10) Hx Alcohol Use (MH) No Home Medications: Ambulatory Orders QUEtiapine FUMARATE [SEROquel XR] 200 mg PO HS 10/13/14 Dextroamphetamine/Amphetamine [Adderall] 20 mg PO BID 05/27/16 buPROPion XL [Wellbutrin XL] 150 mg PO DAILY 08/22/19 Propranolol HCl [Propranolol HCl ER] 60 mg PO DAILY 07/23/20 Naloxone [Narcan] 2 mg IM ONCE PRN 60 Days #1 each 09/23/21 Naloxone HCl [Kloxxado] 8 mg NASAL ONCE PRN 30 Days #2 each 10/04/21 HYDROcodone/APAP 10-325MG [[place] 10-325] 1 tab PO Q8HR PRN 30 Days #90 tab 01/02/25 HYDROcodone/APAP 10-325MG [[place] 10-325] 1 tab PO TID PRN 30 Days #90 tab 01/02/25 Morphine Sulfate ER [Ms Contin] 30 mg PO Q12H 30 Days #60 tab 01/02/25 Morphine Sulfate ER [Ms Contin] 30 mg PO Q12HR 30 Days #60 tab 01/02/25 Controlled Substance Measures - Controlled Substance Measures Is patient prescribed a controlled substance at discharge?: Yes When asked, does pt state using other controlled substances?: Yes If prescribed controlled substance>3 days was MAPS reviewed?: Yes
== END ==
LOC: PNWHC3 09:34
PROVIDERS: ATTEND Specialist
DX: M47.26 Other spondylosis with radiculopathy, lumbar region (principal); F17.200 Nicotine dependence, unspecified, uncomplicated; Z79.891 Long term (current) use of opiate analgesic
CPT/HCPCS: 99212